=== PATIENT | male | born 1960 | race Caucasian/White ===

== ENCOUNTER 2019-05-30 16:07 | Inpatient (IN) | payer MEDICARE, SELFPAY ==
[2019-05-30] VITALS (15 sets, daily range): BP systolic 132–246; BP diastolic 81–138; PULSE 63–81; RESP 18–32; TEMP 36.4–36.6; O2SAT 84–98; BMI 40.6
--- NOTE | 2019-05-30 16:28 | ED_ITS ---
Entered by Elicia Tolliver, acting as scribe for Documented by User: Ermelinda Emerson MD 05/30/19 20:01 HPI - SOB/Dyspnea General: Chief Complaint: Shortness of Breath/Dyspnea Stated Complaint: sob leg pain/swelling/puss both Time Seen by Provider: 05/30/19 16:28 [facility], [facility] ED PFSH: Statuses (acute, chronic, etc) shown below reflect problem list status as previously entered and may not be historically accurate Medical History (Updated 05/30/19 @ 21:04 by Mario Park MD) COPD (chronic obstructive pulmonary disease) (Acute) Hyperlipidemia (Acute) Hypertension (Acute) Type 2 diabetes mellitus (Acute) Surgical History (Updated 05/30/19 @ 20:57 by Mario Park MD) History of ventriculoperitoneal shunting (Acute) Family History (Updated 05/30/19 @ 20:58 by Mario Park MD) Other CAD (coronary artery disease) CHF (congestive heart failure) Diabetes Social History (Updated 05/30/19 @ 20:58 by Mario Park MD) Smoking and tobacco status: current every day smoker Alcohol intake: never Substance/Drug Use: never Physical Exam 2 Const: COMMON NORMALS: no apparent distress, oriented x3 and healthy appearing HENMT: COMMON NORMALS: normocephalic and head/scalp atraumatic HEAD & SCALP: normocephalic and atraumatic Eye: COMMON NORMALS: PERRL and EOMs intact bilaterally PUPIL: Yes PERRL Neck/C-Spine: COMMON NORMALS: full ROM and supple Chest: COMMONS NORMALS: inspection of chest normal and palpation of chest normal Resp: EFFORT & INSPECTION: Yes tachypneic, Yes respiratory distress and Yes uses accessory muscles Cardio: COMMON NORMALS: regular rate, regular rhythm and no murmurs RATE: regular rate RHYTHM: regular rhythm GI: COMMON NORMALS: normal to inspection, nondistended, normoactive bowel sounds, soft to palpation, non-tender and no masses PALPATION: Yes soft Extremity: COMMON NORMALS: normal to inspection and full ROM Neuro: COMMON NORMALS: oriented x3, moves all extremities and no focal motor deficits Psych: COMMON NORMALS: mental status grossly normal, thought process normal and cooperative THOUGHT PROCESS: normal thought process Skin: COMMON NORMALS: no rashes or lesions noted and no wounds GENERAL SKIN EXAM: no rashes or lesions noted Course Vital Signs: Vital signs: Vital Signs Temperature 99.2 F 05/31/19 07:41 Pulse Rate 83 05/31/19 07:41 Respiratory Rate 20 H 05/31/19 07:41 Blood Pressure 186/102 05/31/19 08:30 Pulse Oximetry 90 05/31/19 07:41 MDM - SOB/Dyspnea MDM Narrative: Medical decision making narrative: Patient presents here with respiratory distress was placed on BiPAP due to elevated CO2. Patient is improving on BiPAP and does have pneumonia. Spoke to hospitalist and will admit. Patient has been stable while in the ER. Lab Data: Labs: Lab Results 05/30/19 05/30/19 05/30/19 Range/Units 16:50 16:50 16:50 WBC 7.4 (4.0-10.0) 10^3/ uL RBC 6.13 H (4.1-5.3) 10^6/u L Hgb 19.9 H (11.7-16.6) g/dL Hct 62.0 H (42.0-52.0) % MCV 101.1 H (80-94) fL MCH 32.5 (28.0-34.0) pg MCHC 32.1 (30.0-36.0) g/dL RDW 12.5 (12.1-15.1) % Plt Count 172 (130-400) 10^3/c mm MPV 9.6 (7.4-10.4) fL Neut % (Auto) 79.6 % Lymph % (Auto) 10.4 % Charlton % (Auto) 8.6 % Eos % (Auto) 0.5 % Baso % (Auto) 0.5 % Neut # (Auto) 5.9 (1.8-7.7) 10^3/u L Lymph # (Auto) 0.8 (0.8-4.8) 10^3/u L Charlton # (Auto) 0.6 (0.2-0.9) 10^3/u L Eos # (Auto) 0.0 (0.0-0.8) 10^3/u L Baso # (Auto) 0.0 (0.0-0.1) 10^3/u L Nucleated RBC % (a uto) 0 % Nucleated RBCs # 0.0 /100WBC ESR (0-10) mm/hr Specimen Type Sample Site ABG pH (7.35-7.45) ABG pCO2 (35-45) mmHg ABG pO2 (80.0-100.0) mmH g ABG HCO3 (22-26) mmol/L ABG O2 Saturation ABG Base Excess (-2.0-2.0) mmol/ L Melchor Test A-a O2 Gradient (5-10) mmHg Hematocrit (42-52) % Hgb O2 Saturation (95-100) % Carboxyhemoglobin (0.4-20.1) %THgb Methemoglobin (0.4-1.5) % Total Hemoglobin (14-18) g/dL Ionized Calcium (1.1-1.4) mmol/L O2 Delivery Device O2 Liters/Min % FiO2 % Political Science Faculty Member ID Sodium 132 L (136-145) mmol/L Potassium 4.2 (3.5-5.1) mmol/L Chloride 87 L (98-107) mmol/L Carbon Dioxide 32 H (22-29) mmol/L Anion Gap 17.2 (5-19) BUN 32 H (8-23) mg/dL Creatinine 1.3 H (0.7-1.2) mg/dL GFR Calculation 56.1 L (90-130) mL/min Glucose 154 H (65-115) mg/dL Estimat Average Gl ucose Hemoglobin A1c (4.0-6.0) % Calcium 9.2 (8.5-10.5) mg/dL Total Bilirubin 0.6 (0.15-1.2) mg/dL AST 36 (0-40) U/L ALT 31 (0-41) U/L Alkaline Phosphata se 69 (40-130) IU/L Troponin T Baselin e 48 H (0-15) ng/mL Troponin T 120 Min cantwell (0-15) ng/mL Delta Troponin T (0-10) ABS# C-Reactive Protein (0.0-4.9) mg/L NT-Pro-B Natriuret Pep (0-125) pg/mL Total Protein 7.4 (6.6-8.7) g/dL Albumin 3.5 (3.5-5.2) g/dL Globulin 3.9 (1.3-4.6) g/dL Procalcitonin (0-0.5) ng/mL TSH (0.27-4.20) uIU/ mL Influenza Type A A g (Negative) POC Influenza B Ag (Negative) 05/30/19 05/30/19 05/30/19 Range/Units 16:50 16:50 16:50 WBC (4.0-10.0) 10^3/ uL RBC (4.1-5.3) 10^6/u L Hgb (11.7-16.6) g/dL Hct (42.0-52.0) % MCV (80-94) fL MCH (28.0-34.0) pg MCHC (30.0-36.0) g/dL RDW (12.1-15.1) % Plt Count (130-400) 10^3/c mm MPV (7.4-10.4) fL Neut % (Auto) % Lymph % (Auto) % Charlton % (Auto) % Eos % (Auto) % Baso % (Auto) % Neut # (Auto) (1.8-7.7) 10^3/u L Lymph # (Auto) (0.8-4.8) 10^3/u L Charlton # (Auto) (0.2-0.9) 10^3/u L Eos # (Auto) (0.0-0.8) 10^3/u L Baso # (Auto) (0.0-0.1) 10^3/u L Nucleated RBC % (a uto) % Nucleated RBCs # /100WBC ESR 1 (0-10) mm/hr Specimen Type Sample Site ABG pH (7.35-7.45) ABG pCO2 (35-45) mmHg ABG pO2 (80.0-100.0) mmH g ABG HCO3 (22-26) mmol/L ABG O2 Saturation ABG Base Excess (-2.0-2.0) mmol/ L Melchor Test A-a O2 Gradient (5-10) mmHg Hematocrit (42-52) % Hgb O2 Saturation (95-100) % Carboxyhemoglobin (0.4-20.1) %THgb Methemoglobin (0.4-1.5) % Total Hemoglobin (14-18) g/dL Ionized Calcium (1.1-1.4) mmol/L O2 Delivery Device O2 Liters/Min % FiO2 % Political Science Faculty Member ID Sodium (136-145) mmol/L Potassium (3.5-5.1) mmol/L Chloride (98-107) mmol/L Carbon Dioxide (22-29) mmol/L Anion Gap (5-19) BUN (8-23) mg/dL Creatinine (0.7-1.2) mg/dL GFR Calculation (90-130) mL/min Glucose (65-115) mg/dL Estimat Average Gl ucose 214 Hemoglobin A1c 9.1 H (4.0-6.0) % Calcium (8.5-10.5) mg/dL Total Bilirubin (0.15-1.2) mg/dL AST (0-40) U/L ALT (0-41) U/L Alkaline Phosphata se (40-130) IU/L Troponin T Baselin e (0-15) ng/mL Troponin T 120 Min cantwell (0-15) ng/mL Delta Troponin T (0-10) ABS# C-Reactive Protein 10.9 H (0.0-4.9) mg/L NT-Pro-B Natriuret Pep (0-125) pg/mL Total Protein (6.6-8.7) g/dL Albumin (3.5-5.2) g/dL Globulin (1.3-4.6) g/dL Procalcitonin 0.15 (0-0.5) ng/mL TSH (0.27-4.20) uIU/ mL Influenza Type A A g (Negative) POC Influenza B Ag (Negative) 05/30/19 05/30/19 05/30/19 Range/Units 17:03 17:04 17:27 WBC (4.0-10.0) 10^3/ uL RBC (4.1-5.3) 10^6/u L Hgb (11.7-16.6) g/dL Hct (42.0-52.0) % MCV (80-94) fL MCH (28.0-34.0) pg MCHC (30.0-36.0) g/dL RDW (12.1-15.1) % Plt Count (130-400) 10^3/c mm MPV (7.4-10.4) fL Neut % (Auto) % Lymph % (Auto) % Charlton % (Auto) % Eos % (Auto) % Baso % (Auto) % Neut # (Auto) (1.8-7.7) 10^3/u L Lymph # (Auto) (0.8-4.8) 10^3/u L Charlton # (Auto) (0.2-0.9) 10^3/u L Eos # (Auto) (0.0-0.8) 10^3/u L Baso # (Auto) (0.0-0.1) 10^3/u L Nucleated RBC % (a uto) % Nucleated RBCs # /100WBC ESR (0-10) mm/hr Specimen Type Arterial Arterial Sample Site Radial, right Radial, left ABG pH 7.32 L 7.39 (7.35-7.45) ABG pCO2 66.2 H* 57.7 H (35-45) mmHg ABG pO2 147.0 H 93.6 (80.0-100.0) mmH g ABG HCO3 34.0 H 34.5 H (22-26) mmol/L ABG O2 Saturation 99.2 97.3 ABG Base Excess 4.5 H 6.7 H (-2.0-2.0) mmol/ L Melchor Test Pos Pos A-a O2 Gradient 113.6 H (5-10) mmHg Hematocrit 61.2 H 59.6 H (42-52) % Hgb O2 Saturation 97.9 96.0 (95-100) % Carboxyhemoglobin 1.2 1.3 (0.4-20.1) %THgb Methemoglobin 0.1 L 0.1 L (0.4-1.5) % Total Hemoglobin 20.0 H 19.4 H (14-18) g/dL Ionized Calcium 1.1 1.1 (1.1-1.4) mmol/L O2 Delivery Device Nrb Bipap O2 Liters/Min 15.0 % FiO2 40.0 % Political Science Faculty Member ID monro monro Sodium 133.0 134.0 (136-145) mmol/L Potassium 4.1 3.9 (3.5-5.1) mmol/L Chloride (98-107) mmol/L Carbon Dioxide (22-29) mmol/L Anion Gap (5-19) BUN (8-23) mg/dL Creatinine (0.7-1.2) mg/dL GFR Calculation (90-130) mL/min Glucose 150.0 H 144.0 H (65-115) mg/dL Estimat Average Gl ucose Hemoglobin A1c (4.0-6.0) % Calcium (8.5-10.5) mg/dL Total Bilirubin (0.15-1.2) mg/dL AST (0-40) U/L ALT (0-41) U/L Alkaline Phosphata se (40-130) IU/L Troponin T Baselin e (0-15) ng/mL Troponin T 120 Min cantwell (0-15) ng/mL Delta Troponin T (0-10) ABS# C-Reactive Protein (0.0-4.9) mg/L NT-Pro-B Natriuret Pep (0-125) pg/mL Total Protein (6.6-8.7) g/dL Albumin (3.5-5.2) g/dL Globulin (1.3-4.6) g/dL Procalcitonin (0-0.5) ng/mL TSH (0.27-4.20) uIU/ mL Influenza Type A A g Negative (Negative) POC Influenza B Ag Negative (Negative) 05/30/19 05/30/19 05/30/19 Range/Units 19:03 19:03 19:03 WBC (4.0-10.0) 10^3/ uL RBC (4.1-5.3) 10^6/u L Hgb (11.7-16.6) g/dL Hct (42.0-52.0) % MCV (80-94) fL MCH (28.0-34.0) pg MCHC (30.0-36.0) g/dL RDW (12.1-15.1) % Plt Count (130-400) 10^3/c mm MPV (7.4-10.4) fL Neut % (Auto) % Lymph % (Auto) % Charlton % (Auto) % Eos % (Auto) % Baso % (Auto) % Neut # (Auto) (1.8-7.7) 10^3/u L Lymph # (Auto) (0.8-4.8) 10^3/u L Charlton # (Auto) (0.2-0.9) 10^3/u L Eos # (Auto) (0.0-0.8) 10^3/u L Baso # (Auto) (0.0-0.1) 10^3/u L Nucleated RBC % (a uto) % Nucleated RBCs # /100WBC ESR (0-10) mm/hr Specimen Type Sample Site ABG pH (7.35-7.45) ABG pCO2 (35-45) mmHg ABG pO2 (80.0-100.0) mmH g ABG HCO3 (22-26) mmol/L ABG O2 Saturation ABG Base Excess (-2.0-2.0) mmol/ L Melchor Test A-a O2 Gradient (5-10) mmHg Hematocrit (42-52) % Hgb O2 Saturation (95-100) % Carboxyhemoglobin (0.4-20.1) %THgb Methemoglobin (0.4-1.5) % Total Hemoglobin (14-18) g/dL Ionized Calcium (1.1-1.4) mmol/L O2 Delivery Device O2 Liters/Min % FiO2 % Political Science Faculty Member ID Sodium (136-145) mmol/L Potassium (3.5-5.1) mmol/L Chloride (98-107) mmol/L Carbon Dioxide (22-29) mmol/L Anion Gap (5-19) BUN (8-23) mg/dL Creatinine (0.7-1.2) mg/dL GFR Calculation (90-130) mL/min Glucose (65-115) mg/dL Estimat Average Gl ucose Hemoglobin A1c (4.0-6.0) % Calcium (8.5-10.5) mg/dL Total Bilirubin (0.15-1.2) mg/dL AST (0-40) U/L ALT (0-41) U/L Alkaline Phosphata se (40-130) IU/L Troponin T Baselin e (0-15) ng/mL Troponin T 120 Min cantwell 34.81 H (0-15) ng/mL Delta Troponin T -13.19 L (0-10) ABS# C-Reactive Protein (0.0-4.9) mg/L NT-Pro-B Natriuret Pep 9969 H (0-125) pg/mL Total Protein (6.6-8.7) g/dL Albumin (3.5-5.2) g/dL Globulin (1.3-4.6) g/dL Procalcitonin (0-0.5) ng/mL TSH 2.31 (0.27-4.20) uIU/ mL Influenza Type A A g (Negative) POC Influenza B Ag (Negative) Discharge Plan Discharge Patient Disposition: Admitted As Inpatient Admit Provider: Mario Park Clinical Impression: Community acquired pneumonia Qualifiers: Laterality: unspecified laterality Qualified Code(s): J18.9 - Pneumonia, unsp ecified organism Condition: Stable Discharge Date/Time: 05/30/19 21:50 Coding Level of Care Code ED Unleavened [employer]er for Chg Fwd Exam Problem Focused Documented by User: Juan J Davila DO 05/31/19 09:53 HPI - SOB/Dyspnea General: Chief Complaint: Shortness of Breath/Dyspnea Stated Complaint: sob leg pain/swelling/puss both Time Seen by Provider: 05/30/19 16:28 Source: patient and RN notes reviewed Mode of arrival: wheelchair Limitations: no limitations History of Present Illness: HPI Narrative: 59 yo male presents to ED with complaints of shortness of breath. The patient states he quit smoking in 2008. He said his R leg blew up , it is swollen. The patient's face and abdomen flushed. He said it is harder to breath laying down. He said he has been sleeping in a recliner for a while. He said his legs have been hurting for a couple of years and he has been markedly short of breath for a month. MD elicited complaint: shortness of breath Onset (ago): month(s) (1) Context: recent illness Timing: constant Severity: severe Exacerbating factors: lying flat, exertion and movement Relieving factors: nothing Associated symptoms: Reports extremity pain; Deny abdominal pain, chest pain, dizziness, fever(s), nausea, palpitations, polydipsia, polyuria, syncope or vomiting Treatment prior to arrival: none Related Data: Home oxygen amount: none Review of Systems Const: Denies: fever, chills, body aches, fatigue or night sweats Eyes: Denies: change in vision or blurry vision ENMT: Denies: throat pain, oral sores/lesions, dental pain, nasal discharge or nasal congestion Card: Denies: chest pain, palpitations, irregular heart rhythm or syncope Resp: Denies: productive cough, non-productive cough or wheezing GI: Denies: abdominal pain, nausea, vomiting, vomiting blood, coffee grounds in vomit, difficulty swallowing, heartburn/indigestion, diarrhea, constipation, cramping, blood in stool or black tarry stool : Denies: flank pain, difficulty urinating, painful urination, urinary frequency, urinary urgency, urinary incontinence or blood in urine Musc: Reports: extremity pain Skin/Breast: Denies: rash or itching Neuro: Denies: headache, numbness in extremities, changes in sensation, lack of coordination, difficulty walking, frequent falls, dizziness, vertigo or confusion Psych: Denies: anxiety, depression, loss of interest, visual hallucinations, auditory hallucinations, suicidal ideation or homicidal ideation Endo: Denies: excessive urination, excessive thirst, tired all the time or cold intolerance Ermias/Lymph: Denies: easy bruising, easy bleeding, petechiae, enlarged lymph nodes or tender lymph nodes PFSH ED PFSH: Statuses (acute, chronic, etc) shown below reflect problem list status as previously entered and may not be historically accurate Medical History (Updated 05/30/19 @ 21:04 by Mario Park MD) COPD (chronic obstructive pulmonary disease) (Acute) Hyperlipidemia (Acute) Hypertension (Acute) Type 2 diabetes mellitus (Acute) Surgical History (Updated 05/30/19 @ 20:57 by Mario Park MD) History of ventriculoperitoneal shunting (Acute) Family History (Updated 05/30/19 @ 20:58 by Mario Park MD) Other CAD (coronary artery disease) CHF (congestive heart failure) Diabetes Social History (Updated 05/30/19 @ 20:58 by Mario Park MD) Smoking and tobacco status: current every day smoker Alcohol intake: never Substance/Drug Use: never Physical Exam Const: GENERAL APPEARANCE: cooperative and comfortable ORIENTATION/CONSCIOUSNESS: Yes awake, Yes oriented to person, Yes oriented to place and Yes oriented to time HENMT: COMMON NORMALS: normocephalic, head/scalp atraumatic, hearing grossly normal bilaterally, external ears normal, EAC's normal, TM's normal bilaterally, nasal mucous membranes and turbinates normal, moist oral mucous membranes and oropharynx normal HEAD & SCALP: normocephalic and atraumatic NOSE: nasal mucous membranes and turbinates normal EXTERNAL EAR: Yes external ears normal EXTERNAL AUDITORY CANAL: EAC's normal TYMPANIC MEMBRANE: TM's normal bilaterally Eye: COMMON NORMALS: PERRL, EOMs intact bilaterally, conjunctivae normal and no scleral icterus CONJUNCTIVA: Yes conjunctivae normal PUPIL: Yes PERRL Neck/C-Spine: COMMON NORMALS: no lymphadenopathy, supple and no JVD Lymph: LYMPHATIC: no lymphadenopathy noted and no lymphedema noted Resp: AUSCULTATION: rhonchi left lower, wheezes throughout and diminished lung sounds Cardio: COMMON NORMALS: no JVD, regular rate, regular rhythm and no murmurs RATE: regular rate RHYTHM: regular rhythm GI: COMMON NORMALS: soft to palpation and no hepatosplenomegaly AUSCULTATION: Yes normoactive bowel sounds PALPATION: Yes soft, No tender, No guarding and Yes no hepatosplenomegaly Extremity: COMMON NORMALS: normal to inspection, normal capillary refill, no clubbing, cyanosis or edema, no calf tenderness and no pedal edema Neuro: SENSORIUM/ORIENTATION: Yes oriented to person, Yes oriented to place and Yes oriented to time Skin: COMMON NORMALS: no rashes or lesions noted GENERAL SKIN EXAM: no rashes or lesions noted Course ED course: Patient turned over to Dr. Emerson at change of shift Vital Signs: Vital signs: Vital Signs Temperature 99.2 F 05/31/19 07:41 Pulse Rate 83 05/31/19 07:41 Respiratory Rate 20 H 05/31/19 07:41 Blood Pressure 186/102 05/31/19 08:30 Pulse Oximetry 90 05/31/19 07:41 MDM - SOB/Dyspnea Lab Data: Labs: Lab Results 05/30/19 05/30/19 05/30/19 Range/Units 16:50 16:50 16:50 WBC 7.4 (4.0-10.0) 10^3/ uL RBC 6.13 H (4.1-5.3) 10^6/u L Hgb 19.9 H (11.7-16.6) g/dL Hct 62.0 H (42.0-52.0) % MCV 101.1 H (80-94) fL MCH 32.5 (28.0-34.0) pg MCHC 32.1 (30.0-36.0) g/dL RDW 12.5 (12.1-15.1) % Plt Count 172 (130-400) 10^3/c mm MPV 9.6 (7.4-10.4) fL Neut % (Auto) 79.6 % Lymph % (Auto) 10.4 % Charlton % (Auto) 8.6 % Eos % (Auto) 0.5 % Baso % (Auto) 0.5 % Neut # (Auto) 5.9 (1.8-7.7) 10^3/u L Lymph # (Auto) 0.8 (0.8-4.8) 10^3/u L Charlton # (Auto) 0.6 (0.2-0.9) 10^3/u L Eos # (Auto) 0.0 (0.0-0.8) 10^3/u L Baso # (Auto) 0.0 (0.0-0.1) 10^3/u L Nucleated RBC % (a uto) 0 % Nucleated RBCs # 0.0 /100WBC ESR (0-10) mm/hr Specimen Type Sample Site ABG pH (7.35-7.45) ABG pCO2 (35-45) mmHg ABG pO2 (80.0-100.0) mmH g ABG HCO3 (22-26) mmol/L ABG O2 Saturation ABG Base Excess (-2.0-2.0) mmol/ L Melchor Test A-a O2 Gradient (5-10) mmHg Hematocrit (42-52) % Hgb O2 Saturation (95-100) % Carboxyhemoglobin (0.4-20.1) %THgb Methemoglobin (0.4-1.5) % Total Hemoglobin (14-18) g/dL Ionized Calcium (1.1-1.4) mmol/L O2 Delivery Device O2 Liters/Min % FiO2 % Political Science Faculty Member ID Sodium 132 L (136-145) mmol/L Potassium 4.2 (3.5-5.1) mmol/L Chloride 87 L (98-107) mmol/L Carbon Dioxide 32 H (22-29) mmol/L Anion Gap 17.2 (5-19) BUN 32 H (8-23) mg/dL Creatinine 1.3 H (0.7-1.2) mg/dL GFR Calculation 56.1 L (90-130) mL/min Glucose 154 H (65-115) mg/dL Estimat Average Gl ucose Hemoglobin A1c (4.0-6.0) % Calcium 9.2 (8.5-10.5) mg/dL Total Bilirubin 0.6 (0.15-1.2) mg/dL AST 36 (0-40) U/L ALT 31 (0-41) U/L Alkaline Phosphata se 69 (40-130) IU/L Troponin T Baselin e 48 H (0-15) ng/mL Troponin T 120 Min cantwell (0-15) ng/mL Delta Troponin T (0-10) ABS# C-Reactive Protein (0.0-4.9) mg/L NT-Pro-B Natriuret Pep (0-125) pg/mL Total Protein 7.4 (6.6-8.7) g/dL Albumin 3.5 (3.5-5.2) g/dL Globulin 3.9 (1.3-4.6) g/dL Procalcitonin (0-0.5) ng/mL TSH (0.27-4.20) uIU/ mL Influenza Type A A g (Negative) POC Influenza B Ag (Negative) 05/30/19 05/30/19 05/30/19 Range/Units 16:50 16:50 16:50 WBC (4.0-10.0) 10^3/ uL RBC (4.1-5.3) 10^6/u L Hgb (11.7-16.6) g/dL Hct (42.0-52.0) % MCV (80-94) fL MCH (28.0-34.0) pg MCHC (30.0-36.0) g/dL RDW (12.1-15.1) % Plt Count (130-400) 10^3/c mm MPV (7.4-10.4) fL Neut % (Auto) % Lymph % (Auto) % Charlton % (Auto) % Eos % (Auto) % Baso % (Auto) % Neut # (Auto) (1.8-7.7) 10^3/u L Lymph # (Auto) (0.8-4.8) 10^3/u L Charlton # (Auto) (0.2-0.9) 10^3/u L Eos # (Auto) (0.0-0.8) 10^3/u L Baso # (Auto) (0.0-0.1) 10^3/u L Nucleated RBC % (a uto) % Nucleated RBCs # /100WBC ESR 1 (0-10) mm/hr Specimen Type Sample Site ABG pH (7.35-7.45) ABG pCO2 (35-45) mmHg ABG pO2 (80.0-100.0) mmH g ABG HCO3 (22-26) mmol/L ABG O2 Saturation ABG Base Excess (-2.0-2.0) mmol/ L Melchor Test A-a O2 Gradient (5-10) mmHg Hematocrit (42-52) % Hgb O2 Saturation (95-100) % Carboxyhemoglobin (0.4-20.1) %THgb Methemoglobin (0.4-1.5) % Total Hemoglobin (14-18) g/dL Ionized Calcium (1.1-1.4) mmol/L O2 Delivery Device O2 Liters/Min % FiO2 % Political Science Faculty Member ID Sodium (136-145) mmol/L Potassium (3.5-5.1) mmol/L Chloride (98-107) mmol/L Carbon Dioxide (22-29) mmol/L Anion Gap (5-19) BUN (8-23) mg/dL Creatinine (0.7-1.2) mg/dL GFR Calculation (90-130) mL/min Glucose (65-115) mg/dL Estimat Average Gl ucose 214 Hemoglobin A1c 9.1 H (4.0-6.0) % Calcium (8.5-10.5) mg/dL Total Bilirubin (0.15-1.2) mg/dL AST (0-40) U/L ALT (0-41) U/L Alkaline Phosphata se (40-130) IU/L Troponin T Baselin e (0-15) ng/mL Troponin T 120 Min cantwell (0-15) ng/mL Delta Troponin T (0-10) ABS# C-Reactive Protein 10.9 H (0.0-4.9) mg/L NT-Pro-B Natriuret Pep (0-125) pg/mL Total Protein (6.6-8.7) g/dL Albumin (3.5-5.2) g/dL Globulin (1.3-4.6) g/dL Procalcitonin 0.15 (0-0.5) ng/mL TSH (0.27-4.20) uIU/ mL Influenza Type A A g (Negative) POC Influenza B Ag (Negative) 05/30/19 05/30/19 05/30/19 Range/Units 17:03 17:04 17:27 WBC (4.0-10.0) 10^3/ uL RBC (4.1-5.3) 10^6/u L Hgb (11.7-16.6) g/dL Hct (42.0-52.0) % MCV (80-94) fL MCH (28.0-34.0) pg MCHC (30.0-36.0) g/dL RDW (12.1-15.1) % Plt Count (130-400) 10^3/c mm MPV (7.4-10.4) fL Neut % (Auto) % Lymph % (Auto) % Charlton % (Auto) % Eos % (Auto) % Baso % (Auto) % Neut # (Auto) (1.8-7.7) 10^3/u L Lymph # (Auto) (0.8-4.8) 10^3/u L Charlton # (Auto) (0.2-0.9) 10^3/u L Eos # (Auto) (0.0-0.8) 10^3/u L Baso # (Auto) (0.0-0.1) 10^3/u L Nucleated RBC % (a uto) % Nucleated RBCs # /100WBC ESR (0-10) mm/hr Specimen Type Arterial Arterial Sample Site Radial, right Radial, left ABG pH 7.32 L 7.39 (7.35-7.45) ABG pCO2 66.2 H* 57.7 H (35-45) mmHg ABG pO2 147.0 H 93.6 (80.0-100.0) mmH g ABG HCO3 34.0 H 34.5 H (22-26) mmol/L ABG O2 Saturation 99.2 97.3 ABG Base Excess 4.5 H 6.7 H (-2.0-2.0) mmol/ L Melchor Test Pos Pos A-a O2 Gradient 113.6 H (5-10) mmHg Hematocrit 61.2 H 59.6 H (42-52) % Hgb O2 Saturation 97.9 96.0 (95-100) % Carboxyhemoglobin 1.2 1.3 (0.4-20.1) %THgb Methemoglobin 0.1 L 0.1 L (0.4-1.5) % Total Hemoglobin 20.0 H 19.4 H (14-18) g/dL Ionized Calcium 1.1 1.1 (1.1-1.4) mmol/L O2 Delivery Device Nrb Bipap O2 Liters/Min 15.0 % FiO2 40.0 % Political Science Faculty Member ID monro monro Sodium 133.0 134.0 (136-145) mmol/L Potassium 4.1 3.9 (3.5-5.1) mmol/L Chloride (98-107) mmol/L Carbon Dioxide (22-29) mmol/L Anion Gap (5-19) BUN (8-23) mg/dL Creatinine (0.7-1.2) mg/dL GFR Calculation (90-130) mL/min Glucose 150.0 H 144.0 H (65-115) mg/dL Estimat Average Gl ucose Hemoglobin A1c (4.0-6.0) % Calcium (8.5-10.5) mg/dL Total Bilirubin (0.15-1.2) mg/dL AST (0-40) U/L ALT (0-41) U/L Alkaline Phosphata se (40-130) IU/L Troponin T Baselin e (0-15) ng/mL Troponin T 120 Min [place] (0-15) ng/mL Delta Troponin T (0-10) ABS# C-Reactive Protein (0.0-4.9) mg/L NT-Pro-B Natriuret Pep (0-125) pg/mL Total Protein (6.6-8.7) g/dL Albumin (3.5-5.2) g/dL Globulin (1.3-4.6) g/dL Procalcitonin (0-0.5) ng/mL TSH (0.27-4.20) uIU/ mL Influenza Type A A g Negative (Negative) POC Influenza B Ag Negative (Negative) 05/30/19 05/30/19 05/30/19 Range/Units 19:03 19:03 19:03 WBC (4.0-10.0) 10^3/ uL RBC (4.1-5.3) 10^6/u L Hgb (11.7-16.6) g/dL Hct (42.0-52.0) % MCV (80-94) fL MCH (28.0-34.0) pg MCHC (30.0-36.0) g/dL RDW (12.1-15.1) % Plt Count (130-400) 10^3/c mm MPV (7.4-10.4) fL Neut % (Auto) % Lymph % (Auto) % Charlton % (Auto) % Eos % (Auto) % Baso % (Auto) % Neut # (Auto) (1.8-7.7) 10^3/u L Lymph # (Auto) (0.8-4.8) 10^3/u L Charlton # (Auto) (0.2-0.9) 10^3/u L Eos # (Auto) (0.0-0.8) 10^3/u L Baso # (Auto) (0.0-0.1) 10^3/u L Nucleated RBC % (a uto) % Nucleated RBCs # /100WBC ESR (0-10) mm/hr Specimen Type Sample Site ABG pH (7.35-7.45) ABG pCO2 (35-45) mmHg ABG pO2 (80.0-100.0) mmH g ABG HCO3 (22-26) mmol/L ABG O2 Saturation ABG Base Excess (-2.0-2.0) mmol/ L Melchor Test A-a O2 Gradient (5-10) mmHg Hematocrit (42-52) % Hgb O2 Saturation (95-100) % Carboxyhemoglobin (0.4-20.1) %THgb Methemoglobin (0.4-1.5) % Total Hemoglobin (14-18) g/dL Ionized Calcium (1.1-1.4) mmol/L O2 Delivery Device O2 Liters/Min % FiO2 % Political Science Faculty Member ID Sodium (136-145) mmol/L Potassium (3.5-5.1) mmol/L Chloride (98-107) mmol/L Carbon Dioxide (22-29) mmol/L Anion Gap (5-19) BUN (8-23) mg/dL Creatinine (0.7-1.2) mg/dL GFR Calculation (90-130) mL/min Glucose (65-115) mg/dL Estimat Average Gl ucose Hemoglobin A1c (4.0-6.0) % Calcium (8.5-10.5) mg/dL Total Bilirubin (0.15-1.2) mg/dL AST (0-40) U/L ALT (0-41) U/L Alkaline Phosphata se (40-130) IU/L Troponin T Baselin e (0-15) ng/mL Troponin T 120 Min [place] 34.81 H (0-15) ng/mL Delta Troponin T -13.19 L (0-10) ABS# C-Reactive Protein (0.0-4.9) mg/L NT-Pro-B Natriuret Pep 9969 H (0-125) pg/mL Total Protein (6.6-8.7) g/dL Albumin (3.5-5.2) g/dL Globulin (1.3-4.6) g/dL Procalcitonin (0-0.5) ng/mL TSH 2.31 (0.27-4.20) uIU/ mL Influenza Type A A g (Negative) POC Influenza B Ag (Negative) Discharge Plan Discharge Patient Disposition: Admitted As Inpatient Admit Provider: Mario Park Clinical Impression: Community acquired pneumonia Qualifiers: Laterality: unspecified laterality Qualified Code(s): J18.9 - Pneumonia, unspecified organism Condition: Stable Discharge Date/Time: 05/30/19 21:50 Coding Level of Care Code ED Unleavened Dough Mixer for [facility] Fwd Exam Problem Focused The documentation recorded by the dannyibeSharee Valerie R, accurately reflects the service I personally performed and the decisions made by , Juan J Davila, May 30, 2019 16:07
--- NOTE | 2019-05-30 16:54 | XR_ITS ---
WS: [id number] Portable AP upright chest, 05/30/2019 Clinical Data: dyspnea Comparison: None. Findings: No nodules or masses are seen. The heart is slightly enlarged. The pulmonary vascularity is not increased. There is a patchy opacity in the right lower lobe and possibly a small right effusion . Monitor leads on the chest wall. Aortic arch and descending aorta are minimally tortuous. XR/XR chest 1V portable [id number] Impression: 1. Patchy opacity in right lower lobe with small right effusion which could rep resent atelectasis or early pneumonia. 2. Atherosclerosis and mild cardiomegaly.
--- NOTE | 2019-05-30 16:55 | ECG_ITS ---
Measurements Intervals [place] Rate: 81 P: 73 MA: 226 QRS: 234 QRSD: 116 T: 31 QT: 411 QTc: 479 SINUS RHYTHM WITH FIRST DEGREE AV BLOCK WITH OCCASIONAL ECTOPIC PREMATURE COMPLEXE COMPLEXES POSSIBLE LEFT ATRIAL ENLARGEMENT [-0.1mV P WAVE IN V1/V2] INDETERMINATE AXIS LOW QRS VOLTAGE IN PRECORDIAL LEADS [QRS DEFLECTION < 1.0 mV IN CHEST LEADS] PATTERN CONSISTENT WITH PULMONARY DISEASE RIGHT BUNDLE BRANCH BLOCK [120+ ms QRS DURATION, UPRIGHT V1, 40+ ms S IN I/a I/aVL/V4/V5/V6] SEPTAL MYOCARDIAL INFARCTION , OF INDETERMINATE AGE [40+ ms Q WAVE IN V1/V2] No previous ECG available for comparison Electronically Signed On 05-31-2019 22:14:32 LAST REPAIRER by Prisca Martinez M.D. [id number]
[2019-05-30 17:06] LABS: Basophils % 0.5 %; Eosinophils % 0.5 %; Hemoglobin 19.9 g/dL (11.7-16.6); Lymphocytes # 0.8 10^3/uL (0.8-4.8); Lymphocytes % 10.4 %; Mean Corpuscular HGB Conc 32.1 g/dL (30.0-36.0); Mean Corpuscular Hemoglobin 32.5 pg (28.0-34.0); Mean Corpuscular Volume 101.1 fL (80-94); Mean Platelet Volume 9.6 fL (7.4-10.4); Monocytes # 0.6 10^3/uL (0.2-0.9); Monocytes % 8.6 %; Neutrophils # 5.9 10^3/uL (1.8-7.7); Neutrophils % 79.6 %; Nucleated Red Blood Cells % 0 %; Platelet Count 172 10^3/cmm (130-400); Red Blood Count 6.13 10^6/uL (4.1-5.3); Red Cell Distribution Width 12.5 % (12.1-15.1); White Blood Count 7.4 10^3/uL (4.0-10.0)
[2019-05-30] MEDS: ipratropium-albuterol 3 mL Neb INHALATION ×2 (17:11→22:27)
[2019-05-30 17:20] LABS: Alanine Aminotransferase 31 U/L (0-41); Albumin Level 3.5 g/dL (3.5-5.2); Alkaline Phosphatase 69 IU/L (40-130); Anion Gap 17.2 (5-19); Aspartate Amino Transferase 36 U/L (0-40); Blood Urea Nitrogen 32 mg/dL (8-23); Calcium 9.2 mg/dL (8.5-10.5); Carbon Dioxide 32 mmol/L (22-29); Chloride 87 mmol/L (98-107); Globulin 3.9 g/dL (1.3-4.6); Glomerular Filtration Rate 56.1 mL/min (90-130); Glucose 154 mg/dL (65-115); Potassium 4.2 mmol/L (3.5-5.1); Sodium 132 mmol/L (136-145); Total Bilirubin 0.6 mg/dL (0.15-1.2); Total Protein 7.4 g/dL (6.6-8.7)
[2019-05-30 17:25] LABS: Troponin(5th) Baseline 48 ng/mL (0-15)
[2019-05-30 17:27] LABS: ABG PCO2 66.2 mmHg (35-45); ABG PH Result 7.32 (7.35-7.45); Arterial Blood Gas Hematocrit 61.2 % (42-52); Base Excess ABG 4.5 mmol/L (-2.0-2.0); Blood Gas Allen Test Pos; Blood Gas Sample Site Radial, right; Blood Gas Sample Type Arterial; Carboxyhemoglobin 1.2 %THgb (0.4-20.1); HGB O2 Sat 97.9 % (95-100); Ionized Calcium Level - ABG 1.1 mmol/L (1.1-1.4); Methemoglobin 0.1 % (0.4-1.5); Oxygen Device NRB; Oxygen Saturation ABG 99.2; Potassium Level - ABG 4.1 mmol/L (3.5-5.0)
[2019-05-30 17:40] LABS: ABG PCO2 57.7 mmHg (35-45); ABG PH Result 7.39 (7.35-7.45); Alveolar-Arterial Oxygen Gradi 113.6 mmHg (5-10); Arterial Blood Gas Hematocrit 59.6 % (42-52); Base Excess ABG 6.7 mmol/L (-2.0-2.0); Blood Gas Allen Test Pos; Blood Gas Sample Site Radial, left; Blood Gas Sample Type Arterial; Carboxyhemoglobin 1.3 %THgb (0.4-20.1); HCO3 ABG 34.5 mmol/L (22-26); Ionized Calcium Level - ABG 1.1 mmol/L (1.1-1.4); Methemoglobin 0.1 % (0.4-1.5); Oxygen Device BIPAP; Oxygen Saturation ABG 97.3; PO2 ABG 93.6 mmHg (80.0-100.0); Potassium Level - ABG 3.9 mmol/L (3.5-5.0); Total Hemoglobin 19.4 g/dL (14-18)
[2019-05-30 17:51] LABS: Influenza A by IFA Negative (Negative); Influenza B by IFA Negative (Negative)
[2019-05-30] MEDS: cefTRIAXone 1,000 MG in sodium chloride 0.9% (plus) 50 ML 100 MG IV (17:51)
[2019-05-30] MEDS: azithromycin 500 MG in sodium chloride 0.9% 250 ML 250 MG IV (18:11)
--- NOTE | 2019-05-30 18:55 | ECG_ITS ---
Measurements Intervals [place] Rate: 79 P: 64 RI: 200 QRS: -73 QRSD: 114 T: 48 QT: 369 QTc: 425 SINUS RHYTHM POSSIBLE LEFT ATRIAL ENLARGEMENT [-0.1mV P WAVE IN V1/V2] MARKED LEFT AXIS DEVIATION [QRS AXIS < -30] PATTERN CONSISTENT WITH PULMONARY DISEASE RIGHT BUNDLE BRANCH BLOCK [120+ ms QRS DURATION, UPRIGHT V1, 40+ ms S IN I/aVL/V4/V5/V6] SEPTAL MYOCARDIAL INFARCTION [40+ ms Q WAVE IN V1/V2], OF INDETERMINATE AGE No previous ECG available for comparison Electronically Signed On 05-31-2019 22:18:15 REPRODUCTIVE SURGEON by Prisca Martinez M.D. [id number]
[2019-05-30 19:31] LABS: Troponin 5 2HR 34.81 ng/mL (0-15)
[2019-05-30 20:27] LABS: Add Urine Microscopic? YES; Bilirubin Urine Neg (NEGATIVE); Blood Urine 3+ (Negative); Glucose Urine UA Norm (Normal); Ketones Urine Negative (Negative); Leukocyte Esterase Urine Negative (Negative); Nitrate Urine Negative (Negative); Protein Urine 3+ (Negative); Specific Gravity, Urine 1.015 (1.005-1.030); Urine Appearance Clear (CLEAR); Urine Color Yellow (Yellow); Urobilinogen Urine Norm (Negative); pH Urine 5 (5-7)
[2019-05-30 20:36] LABS: Add Urine Culture? No; Bacteria Urine TRACE; RBC Urine 0-4 /hpf (0-2); Squamous Epithelial Cell Urine 0-4 (0-5)
--- NOTE | 2019-05-30 20:40 | XR_ITS ---
WS: [id number] Right leg including the tibia and fibula, 05/30/2019 Clinical Data: cellulitis right leg r/ cellulitis Comparison: None. Findings: No fractures or dislocations are seen. The tibia and fibula are intact. The soft tissues are normal. There are small phleboliths in the subcutaneous soft tissue. No soft tissue masses are seen. No osteo myelitis is present XR/XR tibia fibula RT 2V [id number] Impression: Negative right leg.
--- NOTE | 2019-05-30 20:40 | XR_ITS ---
WS: [id number] Left leg including the tibia and fibula, 3 views, 05/30/2019 Clinical Data: cellulitis left leg r/o osteo Comparison: None. Findings: No fractures or dislocations are seen. The tibia and fibula are intact. The soft tissues are normal. No evidence of osteomyelitis is seen. There are small calcifications in the subcutaneous soft tissue which probably represent phleboliths. XR/XR tibia fibula LT 2V [id number] Impression: Negative for osteomyelitis or soft tissue mass of the left leg.
--- NOTE | 2019-05-30 20:44 | CTR_ITS ---
PROCEDURE INFORMATION: Exam: CT Angiography Chest With Contrast Exam date and time: 05/30/2019 9:01 PM Age: 59 years old Clinical indication: Dyspnea and shortness of breath; Additional info: SOB, bilatreal leg swelling TECHNIQUE: Imaging protocol: Computed tomographic angiography of the chest with intravenous contrast. 3D rendering: MIP and/or 3D reconstructed images were created by the technologist. Total DLP: 632.52 mGy-cm Radiation optimization: All CT scans at this facility use at least one of these dose optimization techniques: automated exposure control; mA and/or kV adjustment per patient size (includes targeted exams where dose is matched to clinical indication); or iterative reconstruction. Contrast material: VISI 320; Contrast volume: 95 ml; Contrast route: IV; COMPARISON: CR XR chest 1V portable [id number] 05/30/2019 5:13 PM FINDINGS: Tubes, catheters and devices: HAIRPIECE STYLIST shunt tubing is seen within the soft tissues of the chest anteriorly on the right. Pulmonary arteries: Normal. No pulmonary emboli. Aorta: Unremarkable. No aortic aneurysm. No aortic dissection. Lungs: Patchy opacities and consolidation is seen superimposed over the pleural effusions likely representing atelectasis. Superimposed pneumonia cannot be entirely excluded. Pleural space: There are small bilateral pleural effusions, right slightly larger than left. Heart: Unremarkable. No cardiomegaly. No pericardial effusion. Adrenals: There is a small 10 x 14 mm nodularity seen within the left adrenal gland likely representing a small adenoma. Kidneys and ureters: A 4.4 cm hypoattenuation cystic lesions seen on the upper pole of the left kidney compatible with a simple cyst. Intraperitoneal space: A trace amount of fluid is seen adjacent to the liver. Lymph nodes: Small retroperitoneal lymph nodes are seen that are below CT criteria for lymphadenopathy. Bones/joints: There is evidence of healed rib fractures bilaterally. Soft tissues: Unremarkable. CT/CT angio chest PE protcl [id number] IMPRESSION: 1. There is no evidence for pulmonary emboli. 2. Bilateral pleural effusions, right larger than left. 3. Probable bilateral superimposing atelectasis although infiltrates and pneumonia cannot be entirely excluded. 4. A trace amount of fluid is seen adjacent to the liver. 5. Simple appearing 4.4 cm cyst on the upper pole of the left kidney posteriorly. No further workup needed. 6. Small left adrenal nodularity measuring up to 1.4 cm most probably represents a benign adenoma. Consider 12 month follow-up adrenal CT. (Bailey Wills, ACR White Paper, 2017) Radiation Dose CTDIVOL = (mGy): DLP = 632.52 (mGy-cm)
--- NOTE | 2019-05-30 20:50 | PM.HP ---
Providers/Chief Complaint Admitting Physician: Mario Park MD Chief Complaint: sob leg pain/swelling/puss both History of Present Illness Corey Rushing is a 59 year old male with a past medical history of type 2 diabetes mellitus, hyperlipidemia, hypertension, history of a brain tumor with a ventriculoperitoneal shunt, COPD, anxiety who presents to the emergency room for complaints of cough, shortness of breath, bilateral lower extremity swelling. Patient states that 3 weeks ago he had a cough, fevers, malaise, fatigue, shortness of breath, saw his primary care physician's office, was diagnosed with a pneumonia, was given a Z-Ray, stated that he got a bit better, but his symptoms returned, and was given another antibiotic course that she cannot remember. Patient states that he has not gotten any better since then, still has a productive cough, yellow-green sputum, intermittent fevers, fatigue, malaise shortness of breath at rest and with exertion, no chest pain, no palpitations, no lightheadedness, no dizziness, no poor appetite, no diarrhea, no chills. Patient also states that he has had bilateral lower extremity swelling, erythema, tenderness, drainage for quite some time, he has not really addressed this with his primary care physician. Of note patient does not know which medications he is taking, he is only sure on metformin, metoprolol, lisinopril, will have to call his pharmacy in [facility] to get his medication list. Review of Systems Const: Reports: fever, fatigue and malaise; Denies: chills Eyes: Denies: change in vision or blurry vision ENMT: Denies: nasal congestion Resp: Reports: shortness of breath and productive cough GI: Denies: abdominal pain, nausea, vomiting, vomiting blood, diarrhea, constipation, blood in stool or black tarry stool : Denies: flank pain, difficulty urinating, painful urination or urinary frequency Musc: Denies: neck pain or back pain Skin/Breast: Denies: rash Neuro: Denies: headache, dizziness or vertigo Psych: Denies: anxiety or depression Endo: Denies: excessive urination or excessive thirst Medications/Allergies Allergies Allergy/AdvReac Type Severity Reaction Status Date / Time No Known Allergies Allergy Verified 05/30/19 16:31 Additional Medication Information Additional Medication Information: Metformin Lisinopril Metoprolol Patient is unsure about dosing, strength, and the other medications he takes PFSH Acute PFSH: Statuses (acute, chronic, etc) shown below reflect problem list status as previously entered and may not be historically accurate Medical History (Updated 05/30/19 @ 21:04 by Mario Park MD) COPD (chronic obstructive pulmonary disease) (Acute) Hyperlipidemia (Acute) Hypertension (Acute) Type 2 diabetes mellitus (Acute) Surgical History (Updated 05/30/19 @ 20:57 by Mario Park MD) History of ventriculoperitoneal shunting (Acute) Family History (Updated 05/30/19 @ 20:58 by Mario Park MD) Other CAD (coronary artery disease) CHF (congestive heart failure) Diabetes Social History (Updated 05/30/19 @ 20:58 by Mario Park MD) Smoking and tobacco status: current every day smoker Alcohol intake: never Substance/Drug Use: never Vitals/I&O/Wt Last Vital Signs Temp 97.8 F 05/30/19 16:19 Pulse 65 05/30/19 20:05 Resp 32 H 05/30/19 17:11 BP 132/81 05/30/19 16:19 Pulse Ox 97 05/30/19 20:05 Weight last 48 hrs Weight 124.738 kg Physical Exam Const: COMMON NORMALS: no apparent distress and oriented x3 GENERAL APPEARANCE: cooperative and comfortable HENMT: COMMON NORMALS: normocephalic HEAD & SCALP: normocephalic Eye: COMMON NORMALS: PERRL, EOMs intact bilaterally and no papilledema GENERAL EYE: normal appearance of both eyes PUPIL: Yes PERRL DIRECT OPHTHALMOSCOPY: Yes no papilledema Neck/C-Spine: COMMON NORMALS: full ROM, no lymphadenopathy, no JVD and thyroid normal THYROID: thyroid normal Lymph: LYMPHATIC: no lymphadenopathy noted Chest: OTHER: Eczematous rash on chest, face, back Resp: COMMON NORMALS: normal respiratory effort, no retractions, no use of accessory muscles and clear to auscultation bilaterally AUSCULTATION: clear to auscultation bilaterally and breath sounds absent on the right Cardio: COMMON NORMALS: no JVD, regular rate, regular rhythm, S1 normal heart sound, S2 normal heart sound, no gallops, no clicks and no murmurs RATE: regular rate RHYTHM: regular rhythm HEART SOUNDS: S1 normal and S2 normal GI: COMMON NORMALS: normal to inspection, nondistended, normoactive bowel sounds, soft to palpation, non-tender and no hepatosplenomegaly INSPECTION: Yes abdominal wall edema PALPATION: Yes soft and Yes no hepatosplenomegaly Extremity: COMMON NORMALS: normal to inspection and full ROM NARRATIVE EXTREMITY EXAM: Diminished DP PT pulses bilaterally Right lower extremity feels cool OTHER: Bilateral left lower extremities Erythema, swelling, tenderness extending from elliott downwards to the ankles With superficial diabetic ulcers bilaterally, multiple, largest measuring 2 x 2 cm, with serosanguineous drainage 1+ pitting edema Neuro: COMMON NORMALS: oriented x3, CN's II-XII intact bilaterally, moves all extremities and no focal motor deficits Psych: COMMON NORMALS: mental status grossly normal, thought process normal and cooperative THOUGHT PROCESS: normal thought process Data : 05/30/19 16:50 05/30/19 16:50 A&P Assessment and plan (1) Acute respiratory failure with hypoxia: Acute respiratory failure secondary to right lower lobe pneumonia and COPD exacerbation -Has failed multiple rounds of outpatient antibiotics Plan: -Patient is okay to admit to general medical floors -Blood cultures, urine bacterial antigen -Broad-spectrum antibiotics vancomycin and Zosyn -Nebulizer treatments, -Solu-Medrol -Currently on 3 L nasal cannula, saturating high 90s -BiPAP PRN -CT angiogram of the chest was ordered given sudden onset of shortness of breath, bilateral lower extremity swelling, history of blood clot in the left lower extremity in the past Status: Acute Code(s): J96.01 - Acute respiratory failure with hypoxia (2) Community acquired pneumonia: Status: Acute Qualifiers: Laterality: unspecified laterality Qualified Code(s): J18.9 - Pneumonia, unspecified organism Code(s): J18.9 - Pneumonia, unspecified organism (3) COPD (chronic obstructive pulmonary disease): More than 97-shwk-eddg history of smoking, history of COPD, does not use inhalers at home Patient's PCO2 is 57.7, hemoglobin is 19.9, clinically indicating that he has severe COPD, he might qualify for oxygen at home We will await for CT angios Status: Acute Code(s): J44.9 - Chronic obstructive pulmonary disease, unspecified (4) Type 2 diabetes mellitus: Only uses metformin and he thinks glipizide Given the appearance of his bilateral lower extremities, has findings concerning of poorly controlled diabetes Need to get medication list from [facility] Plan: -Mild dose sliding scale -Hemoglobin A1c Status: Acute Code(s): E11.9 - Type 2 diabetes mellitus without complications (5) Hyperlipidemia: Statin Status: Acute Code(s): E78.5 - Hyperlipidemia, unspecified (6) Hypertension: Patient is unsure of the dosing of the medications Start metoprolol 25 twice daily, lisinopril 10 mg Await medication list from [facility] Status: Acute Code(s): I10 - Essential (primary) hypertension (7) Bilateral lower leg cellulitis: -Evidence of bilateral lower extremity cellulitis, with erythema, swelling, tenderness, -Multiple shallow diabetic ulcers with serosanguineous drainage -DP PT pulses bilateral extremities are barely palpable, right lower extremity feels cool to touch Plan: -Vancomycin and Zosyn as above for coverage of cellulitis -We will do x-rays of bilateral lower extremities to rule out underlying osteomyelitis -We will do ultrasound of bilateral lower extremities to rule out DVTs, patient states that he had a left leg DVT many years ago, is off anticoagulation -We will do ABIs as patient has evidence of peripheral arterial disease -I have consulted Dr. Fan for possible bedside debridement of diabetic ulcers Status: Acute Code(s): L03.116 - Cellulitis of left lower limb; L03.115 - Cellulitis of right lower limb (8) Diabetic foot ulcers: Status: Acute Code(s): E11.621 - Type 2 diabetes mellitus with foot ulcer; L97.509 - Non-pressure chronic ulcer of other part of unspecified foot with unspecified severity (9) CHF (congestive heart failure): -Patient has 1+ pitting edema bilaterally, generalized anasarca -Chest x-ray shows some evidence of pulmonary vascular congestion -BNP is pending -EKG initially was a poor quality study, first-degree AV block, right bundle branch block, low voltage QRS, nonspecific T wave changes Plan: -Lasix 40 mg IV once, monitor urine output -Daily dose Lasix based on clinical response -Cardiac echocardiogram ordered Status: Acute Code(s): I50.9 - Heart failure, unspecified Attestations Medical Necessity Statement*: She requires hospitalization, greater than 2 midnights, inpatient, for pneumonia, COPD exacerbation, bilateral lower extremity cellulitis, diabetic ulcers Coding Level of Care Code Acute Conference Services Manager for g Fwd Diagnoses Acute respiratory failure with hypoxia J96.01 Community acquired pneumonia J18.9 Laterality: unspecified laterality COPD (chronic obstructive pulmonary disease) J44.9 Type 2 diabetes mellitus E11.9 Hyperlipidemia E78.5 Hypertension I10 Bilateral lower leg cellulitis L03.116; L03.115 Diabetic foot ulcers E11.621; L97.509 CHF (congestive heart failure) I50.9
[2019-05-30 21:05] LABS: C Reactive Protein 10.9 mg/L (0.0-4.9)
[2019-05-30 21:10] LABS: Estmated Average Glucose 214; Hemoglobin A1C 9.1 % (4.0-6.0)
[2019-05-30] MEDS: iodixanol 320 mg/mL 100mL Btl 95 ML IV (21:52)
[2019-05-30 22:37] LABS: Erythrocyte Sedimentation Rate 1 mm/hr (0-10)
[2019-05-30 22:46] LABS: NT Pro B Type Natriuretic Pept 9969 pg/mL (0-125)
[2019-05-30 22:47] LABS: Thyroid Stimulating Hormone 2.31 uIU/mL (0.27-4.20)
[2019-05-30] MEDS: atorvastatin 40 mg Tablet PO (22:54)
[2019-05-30] MEDS: enoxaparin 40 mg/0.4 mL Syringe SUBCUT (22:54)
[2019-05-30] MEDS: FUROsemide 10 mg/mL SDV 4mL 40 MG IVP (22:54)
--- NOTE | 2019-05-30 22:55 | ECG_ITS ---
Measurements Intervals [place] Rate: 70 P: 48 [place]: 224 QRS: 71 QRSD: 115 T: 87 QT: 428 QTc: 463 SINUS RHYTHM WITH FIRST DEGREE AV BLOCK WITH OCCASIONAL ECTOPIC PREMATURE COMPLE COMPLEXES INDETERMINATE AXIS LOW QRS VOLTAGE IN PRECORDIAL LEADS [QRS DEFLECTION < 1.0 mV IN CHEST LEADS] PATTERN CONSISTENT WITH PULMONARY DISEASE RIGHT BUNDLE BRANCH BLOCK [120+ ms QRS DURATION, UPRIGHT V1, 40+ ms S IN I/ I/aVL/V4/V5/V6] No previous ECG available for comparison Electronically Signed On 05-31-2019 22:18:05 SAP BASIS by Prisca Martinez M.D. [id number]
[2019-05-30] MEDS: labetalol 5 mg/mL SDV 20mL 20 MG IVP (23:22)
[2019-05-30 23:39] LABS: Troponin 5 6HR 44.81 ng/L (0-15)
[2019-05-30 23:50] LABS: Troponin 5 6HR Delta -3.19 ng/L (0-12)
[2019-05-30] MEDS: lisinopril 10 mg Tablet 20 MG PO (23:51)
[2019-05-30] MEDS: vancomycin 1,000 MG in sodium chloride 0.9% 250 ML 250 MG IV (23:51)
[2019-05-30] MEDS: metoprolol tartrate 25 mg Tablet 50 MG PO (23:52)
[2019-05-31] VITALS (24 sets, daily range): BP systolic 164–236; BP diastolic 76–102; PULSE 74–87; RESP 17–25; TEMP 36.3–37.3; O2SAT 90–95
--- NOTE | 2019-05-31 00:05 | PC.PHAR ---
Vancomycin is dosed at 1000mg IVPB every 12 hours to produce predicted trough level of 12.86 (population based pharmacokinetic analysis). A trough level has been ordered from the lab to be obtained before the third dose to confirm and adjust if needed. Zosyn is dosed at 3.375gm IVPB every 8 hours, each dose to be infused over 4 hours per extended infusion protocol.
[2019-05-31 00:33] LABS: Procalcitonin 0.15 ng/mL (0-0.5)
[2019-05-31] MEDS: piperacillin-tazobactam 3.375 GM in sodium chloride 0.9% (plus) 50 ML IV ×3 (01:13→17:06)
[2019-05-31] MEDS: morphine 4 mg/mL SDV 1 mL 1 MG IVP (01:24)
[2019-05-31] MEDS: acetaminophen 325 mg Tablet 650 MG PO (01:25)
[2019-05-31] MEDS: hyDRALAzine 20 mg/mL INJ 1 mL IVP (01:55)
[2019-05-31] MEDS: amlodipine 10 mg Tablet PO (01:55)
[2019-05-31] MEDS: ipratropium-albuterol 3 mL Neb INHALATION ×5 (03:17→21:18)
[2019-05-31 04:26] LABS: Basophils % 0.3 %; Eosinophils % 0.1 %; Hematocrit 59.6 % (42.0-52.0); Lymphocytes # 0.4 10^3/uL (0.8-4.8); Lymphocytes % 5.7 %; Mean Corpuscular HGB Conc 31.9 g/dL (30.0-36.0); Mean Corpuscular Hemoglobin 32.1 pg (28.0-34.0); Mean Corpuscular Volume 100.8 fL (80-94); Mean Platelet Volume 9.9 fL (7.4-10.4); Monocytes # 0.2 10^3/uL (0.2-0.9); Monocytes % 3.1 %; Neutrophils % 90.3 %; Nucleated Red Blood Cells % 0 %; Platelet Count 148 10^3/cmm (130-400); Red Blood Count 5.91 10^6/uL (4.1-5.3); Red Cell Distribution Width 12.4 % (12.1-15.1); White Blood Count 7.7 10^3/uL (4.0-10.0)
[2019-05-31 04:36] LABS: INR 0.91 (0.8-1.2)
[2019-05-31 04:49] LABS: Alanine Aminotransferase 26 U/L (0-41); Alkaline Phosphatase 57 IU/L (40-130); Anion Gap 22.1 (5-19); Aspartate Amino Transferase 31 U/L (0-40); Blood Urea Nitrogen 20 mg/dL (8-23); Calcium 9.1 mg/dL (8.5-10.5); Carbon Dioxide 29 mmol/L (22-29); Chloride 85 mmol/L (98-107); Globulin 3.4 g/dL (1.3-4.6); Glomerular Filtration Rate 61.6 mL/min (90-130); Glucose 188 mg/dL (65-115); Magnesium 1.5 mg/dL (1.7-2.3); Phosphorus 3.6 mg/dL (2.5-4.5); Potassium 4.1 mmol/L (3.5-5.1); Sodium 132 mmol/L (136-145); Total Bilirubin 0.8 mg/dL (0.15-1.2); Total Protein 6.4 g/dL (6.6-8.7)
[2019-05-31] MEDS: cloNIDine 0.1 mg Tablet PO ×2 (05:09→08:30)
[2019-05-31 06:25] LABS: Glucose Point of Care 192 mg/dL (70-110)
[2019-05-31] MEDS: labetalol 5 mg/mL SDV 20mL 20 MG IVP (06:57)
[2019-05-31] MEDS: metoprolol tartrate 25 mg Tablet 50 MG PO (08:31)
[2019-05-31] MEDS: metOLazone 5 MG Tablet PO (08:31)
[2019-05-31] MEDS: atorvastatin 40 mg Tablet PO (08:31)
[2019-05-31] MEDS: pantoprazole DR 40 mg Tablet PO (08:31)
[2019-05-31] MEDS: hyDRALAzine 10 mg Tablet PO ×2 (08:31→14:17)
[2019-05-31] MEDS: spironolactone 25 mg Tablet PO (08:31)
[2019-05-31] MEDS: lisinopril 10 mg Tablet 20 MG PO (08:31)
[2019-05-31] MEDS: FUROsemide 10 mg/mL SDV 4mL 40 MG IVP (08:32)
--- NOTE | 2019-05-31 09:19 | PC.RESP ---
Patient given information on Smoking Cessation and Pulmonary Rehab. Patient verbalized understanding.
[2019-05-31 11:09] LABS: Glucose Point of Care 311 mg/dL (70-110)
[2019-05-31] MEDS: vancomycin 1,000 MG in sodium chloride 0.9% 250 ML 250 MG IV ×2 (11:57→23:53)
--- NOTE | 2019-05-31 12:47 | PM.CONSULT ---
Providers/Reason For Consult Consulting Physican/Specialty*: Hospitalist Reason for Consult*: Diabetic ulcer Attending Physician: Harish Sorensen MD History of Present Illness History of Present Illness Patient is a 59-year-old poorly reviewed controlled diabetic male with venous stasis wounds to bilateral lower extremities. He was admitted to the hospital for pneumonia having failed outpatient oral antibiotics, has had persistent productive cough with subjective fevers and malaise. Regarding his legs, he states that he has had issues with swelling and formation of water blisters, he states this is a recurring thing. He has tried to wear compression stockings to help manage this, he has difficulty getting them on any complaints at they are too tight. He states that the current sores at his legs spontaneously appeared several weeks ago. Review of Systems Const: Reports: fever, fatigue and malaise; Denies: chills Eyes: Denies: change in vision Resp: Reports: shortness of breath and productive cough GI: Denies: abdominal pain, nausea, vomiting or diarrhea : Denies: flank pain, difficulty urinating, painful urination or urinary frequency Musc: Reports: extremity pain, redness and limited range of motion Skin/Breast: Reports: skin swelling, sores and changes in skin color Neuro: Reports: numbness in extremities and changes in sensation Psych: Denies: anxiety or depression Ermias/Lymph: Denies: easy bruising All/Imm: Denies: hives Meds/Allergies Home Medications and Allergies Home Medications Medication Instructions Recorded Confirmed Type Raymond-3 1 g PO BID 05/31/19 05/31/19 History azithromycin [Zithromax Z-Ray] 250 mg PO DAILY 05/31/19 05/31/19 History doxycycline hyclate 100 mg PO BID 05/31/19 05/31/19 History hydrochlorothiazide 25 mg PO DAILY 05/31/19 05/31/19 History lisinopril 40 mg PO BID 05/31/19 05/31/19 History metformin 500 mg PO BIDAC 05/31/19 05/31/19 History metoprolol tartrate 75 mg PO BID 05/31/19 05/31/19 History tizanidine 4 mg PO TID 05/31/19 05/31/19 History Allergies Allergy/AdvReac Type Severity Reaction Status Date / Time No Known Allergies Allergy Verified 05/30/19 16:31 Current Medications Current Medications Generic Name Dose Route Start Last Admin Trade Name Freq PRN Reason Stop Dose Admin Acetaminophen 650 mg 05/30/19 22:12 05/31/19 01:25 Tylenol PO 650 mg Q6H PRN Administration Mild/Mod Pain Or Temp >/= 101 Albuterol/Ipratropium 3 ml 05/30/19 21:00 05/31/19 11:07 Duoneb INHALATION 3 ml Q4H.RESPIRATORY PRADIP Administration Amlodipine Besylate 10 mg 05/31/19 01:45 05/31/19 01:55 Norvasc PO 10 mg DAILY PRADIP Administration Atorvastatin Calcium 40 mg 05/30/19 22:12 05/31/19 08:31 Lipitor PO 40 mg DAILY PRADIP Administration Clonidine HCl 0.1 mg 05/31/19 05:05 05/31/19 08:30 Catapres PO 0.1 mg BID PRADIP Administration Enoxaparin Sodium 40 mg 05/30/19 22:12 05/30/19 22:54 Lovenox SUBCUT 40 mg Q24H PRADIP Administration Furosemide 40 mg 05/31/19 09:02 05/31/19 08:32 Lasix IVP 40 mg Q12H PRADIP Administration Hydralazine HCl 20 mg 05/31/19 01:41 05/31/19 01:55 Apresoline IVP 20 mg Q4H PRN Administration SBP>180 Hydralazine HCl 10 mg 05/31/19 09:00 05/31/19 08:31 Apresoline PO 10 mg TID PRADIP Administration Vancomycin HCl 1,000 mg/ 250 mls @ 250 mls/hr 05/30/19 23:00 05/31/19 11:57 Sodium Chloride IV 250 mls/hr Q12H PRADIP Administration Protocol As Directed Piperacillin Sod/Tazobactam 50 mls @ 12.5 mls/hr 05/31/19 00:00 05/31/19 10:09 Sod 3.375 gm/ Sodium Chloride IV 12.5 mls/hr Q8H PRADIP Administration Protocol As Directed Insulin Aspart 0 unit 05/31/19 08:00 05/31/19 11:59 Novolog SUBCUT 12 unit TIDWM PRADIP Administration Protocol Labetalol HCl 20 mg 05/30/19 23:36 05/31/19 06:57 Trandate IVP 20 mg Q4H PRN Administration SBP>180, hold if HR<60 Lisinopril 20 mg 05/30/19 23:45 05/31/19 08:31 Prinivil PO 20 mg BID PRADIP Administration Methylprednisolone Sodium Succinate 40 mg 05/30/19 21:00 05/31/19 12:02 Solu-Medrol IVP 40 mg Q8H PRADIP Administration Metolazone 5 mg 05/31/19 09:00 05/31/19 08:31 Zaroxolyn PO 5 mg DAILY PRADIP Administration Metoprolol Tartrate 50 mg 05/30/19 23:45 05/31/19 08:31 Lopressor PO 50 mg BID PRADIP Administration Morphine Sulfate 1 mg 05/30/19 22:12 05/31/19 01:24 Morphine IVP 1 mg Q4H PRN Administration SEVERE PAIN Pantoprazole Sodium 40 mg 05/31/19 09:00 05/31/19 08:31 Protonix PO 40 mg DAILY PRADIP Administration Spironolactone 25 mg 05/31/19 09:00 05/31/19 08:31 Aldactone PO 25 mg DAILY PRADIP Administration PFSH Acute PFSH: Statuses (acute, chronic, etc) shown below reflect problem list status as previously entered and may not be historically accurate Medical History (Updated 05/31/19 @ 13:18 by Kaiden Fan DPM) COPD (chronic obstructive pulmonary disease) (Acute) Hyperlipidemia (Acute) Hypertension (Acute) Type 2 diabetes mellitus (Acute) Surgical History (Updated 05/30/19 @ 20:57 by Mario Park MD) History of ventriculoperitoneal shunting (Acute) Family History (Updated 05/30/19 @ 20:58 by Mario Park MD) Other CAD (coronary artery disease) CHF (congestive heart failure) Diabetes Social History (Updated 05/30/19 @ 20:58 by Mario Park MD) Smoking and tobacco status: current every day smoker Alcohol intake: never Substance/Drug Use: never Vitals/I&O/Wt Last Vital Signs Temp 98.8 F 05/31/19 12:00 Pulse 82 05/31/19 12:00 Resp 20 H 05/31/19 12:00 BP 164/76 05/31/19 12:00 Pulse Ox 92 05/31/19 12:00 05/30/19 05/31/19 05/31/19 22:59 06:59 14:59 Intake Total 420 / 420 420 / 420 Output Total 600 / 600 500 / 500 Balance -180 / -180 -80 / -80 Weight last 48 hrs Weight 275 lb Physical Exam Narrative: EXAM NARRATIVE: GENERAL: Patient is alert and oriented ?3 and in no acute distress. The following is a focused bilateral lower extremity exam. VASCULAR: Dorsalis pedis and posterior tibial arteries nonpalpable. Capillary refill time less than 3 seconds to the distal hallux bilaterally. Calf is supple and nontender proximally and distally. Decreased lower extremity and pedal hair growth noted bilaterally. Rubor to the bilateral legs and feet. Skin temperature is warm to cool from the tibial tuberosity down to the dorsal distal digits. Pitting edema to the bilateral lower extremities. NEUROLOGICAL: Protective sensation intact 3/10 sites, tested with Kathryn Philipp monofilament to bilateral feet. DERMATOLOGICAL: Lower extremity integument is thin and atrophic has shiny appearance there is induration at the legs most prominent anteriorly. There are skin pigmentation changes consistent with chronic venous insufficiency bilateral legs. Rubor to bilateral legs and feet. Multitude of wounds with limited to breakdown of skin at anterior medial legs bilaterally as well as anterior ankles bilaterally there is no ida purulent drainage at this time, wounds are not exposed to fat layer or subcutaneous tissue. MUSCULOSKELETAL: Tenderness to palpation at bilateral legs. Pes planus foot type bilaterally. Ankle joint dorsiflexion to neutral bilaterally. First metatarsal phalangeal joint dorsiflexion of the 30 degrees in the sagittal plane. Widened externally rotated gait. Muscle strength is 5 out of 5 in all 3 cardinal planes to bilateral foot and ankle. Data Micro: Micro: Microbiology 05/30/19 23:15 Blood Culture - Pr eliminary Blood SPECIMEN [facility] 05/30/19 23:00 Blood Culture - Pr eliminary Blood SPECIMEN [facility] 05/30/19 17:48 Blood Culture - Pr eliminary Blood SPECIMEN [facility] 05/30/19 17:41 Blood Culture - Pr eliminary Blood SPECIMEN [facility] A&P Assessment and plan (1) Diabetes mellitus with polyneuropathy: Status: Acute Code(s): E11.42 - Type 2 diabetes mellitus with diabetic polyneuropathy (2) Venous ulcer of both lower extremities with varicose veins: Status: Acute Code(s): I83.019 - Varicose veins of right lower extremity with ulcer of unspecified site; I83.029 - Varicose veins of left lower extremity with ulcer of unspecified site; L97.919 - Non-pressure chronic ulcer of unspecified part of right lower leg with unspecified severity; L97.929 - Non-pressure chronic ulcer of unspecified part of left lower leg with unspecified severity (3) PVD (peripheral vascular disease): Status: Acute Code(s): I73.9 - Peripheral vascular disease, unspecified Patient is a 59-year-old poorly controlled diabetic male with venous ulcerations to bilateral lower extremities. Elevated CRP at 10.9. A1c 9.1. Erythrocyte sedimentation rate 1, WBC 7.4. Duplex Doppler negative for DVT the legs, tib-fib views on plain film are negative for acute osseous injury, soft tissue emphysema or foreign body. Patient receiving IV vancomycin and Zosyn for pneumonia. Dressings applied consisting of silver impregnated alginate and Kerlix. Encourage patient to elevate his feet while at rest and avoid dependent position. Will obtain arterial studies while inpatient to aid in treatment options for compression therapy, venous studies for reflux can be done outpatient. Consult Attestations Medical Necessity Statement: Uncontrolled diabetes. Venous insufficiency with bilateral leg wounds. Coding Level of Care Code Acute Investigative Analyst for Chg Fwd Diagnoses Diabetes mellitus with polyneuropathy E11.42 Venous ulcer of both lower extremities with varicose veins I83.019; I83.029; L97.919; L97.929 PVD (peripheral vascular disease) I73.9 Comment CPT 31566
--- NOTE | 2019-05-31 15:14 | USR_ITS ---
PROCEDURE INFORMATION: Exam: US Duplex Lower Extremity Arteries Exam date and time: 05/31/2019 3:59 PM Age: 59 years old Clinical indication: Other: Poor pulses TECHNIQUE: Imaging protocol: Real-time ultrasound scan of the arteries of the bilateral lower extremities with 2-D merida scale, color Doppler flow and spectral waveform analysis. COMPARISON: No relevant prior studies available. FINDINGS: Right common femoral artery: No occlusion or significant stenosis. Monophasic waveform. Moderate diffuse nonocclusive disease Right superficial femoral artery: No occlusion or significant stenosis. Monophasic waveform. Moderate diffuse nonocclusive disease Right popliteal artery: No occlusion or significant stenosis. Monophasic waveform. Right calf/foot arteries: No occlusion or significant stenosis in the visualized arteries. Monophasic waveform. Dorsalis pedis artery is monophasic waveform. Moderate diffuse nonocclusive disease KAYLEIGH 0.4 Left common femoral artery: No occlusion or significant stenosis monophasic waveform. Moderate diffuse nonocclusive disease Left superficial femoral artery: No occlusion or significant stenosis. Monophasic waveform. Moderate diffuse nonocclusive disease Left popliteal artery: No occlusion or significant stenosis. Monophasic waveform. Left calf/foot arteries: No occlusion or significant stenosis in the visualized arteries. Monophasic waveform. Dorsalis pedis artery is patent. Moderate nonocclusive diffuse disease. KAYLEIGH 0.4 US/CV arterial duplex [facility] [id number] IMPRESSION: Low amplitude monophasic waveforms throughout the right and left lower extremity arterial system corresponding to moderate diffuse nonocclusive disease..
[2019-05-31] MEDS: metoprolol tartrate 50 mg Tablet 75 MG PO (17:05)
--- NOTE | 2019-05-31 17:05 | PM.PN ---
Subjective Subjective: Interval history: Patient admitted overnight. H&P and labs noted. On examination this morning patient severely with 3 L nasal cannula saturating over 92%. States he is feeling a lot better now. Patient is concerned about swelling in his legs. Patient states he has been getting out of breath on exertion along with increase in his weight and swelling of both his legs there is been getting worse progressively over last 4 to 5 months. He states he usually is not able to recline in his bed because he gets out of breath. Is not really aware of PNBx has not lying down flat for some time. Does not complain of any fevers or chills. Medications: Medication Review Details: Med rec not in system. On confirming with his home pharmacy patient is on Lisinopril 40 mg twice daily Hydrochlorothiazide 25 mg daily Metoprolol 75 mg twice daily, Tizanidine 4 mg 3 times daily Patient has also recently had a course of Z-Ray and doxycycline. Vitals/I&O/Wt Last Vital Signs Temp 98.1 F 05/31/19 16:00 Pulse 79 05/31/19 16:12 Resp 18 05/31/19 16:08 BP 178/92 05/31/19 16:00 Pulse Ox 93 05/31/19 16:08 05/31/19 05/31/19 05/31/19 06:59 14:59 22:59 Intake Total 420 / 420 420 / 420 440 / 860 Output Total 600 / 600 500 / 500 400 / 900 Balance -180 / -180 -80 / -80 40 / -40 Weight last 48 hrs Weight 124.738 kg Physical Exam Narrative: EXAM NARRATIVE: General: No acute distress, AO x3, HEENT: PERRLA, pupils bilaterally equal and reactive Chest: Normal vesicular breath sounds,b/l lower zones decreased sounds,fine crackles present, equal good air entry bilaterally CVS: S1-S2 regular, ESM at aortic area, soft PSM at apex,, no tachycardia, no gallops, no rubs Abdomen: Soft, nontender, no organomegaly, bowel sounds present Neuro: No focal deficits, no facial deformity, AO x3, power 5/5 in all limbs Ext: b/l legs swelling present all the way upto thigh with pitting edema 2+, pulses not fairly palpable but dopplerable. Data : 05/31/19 02:43 05/31/19 02:43 Micro: Microbiology 05/30/19 23:15 Blood Culture - Preliminary Blood SPECIMEN COLLECTED 05/30/19 23:00 Blood Culture - Preliminary Blood SPECIMEN COLLECTED 05/30/19 17:48 Blood Culture - Preliminary Blood SPECIMEN COLLECTED 05/30/19 17:41 Blood Culture - Preliminary Blood SPECIMEN COLLECTED A&P Assessment and plan (1) Acute respiratory failure with hypoxia: Status: Acute Code(s): J96.01 - Acute respiratory failure with hypoxia (2) CHF (congestive heart failure): Status: Acute Code(s): I50.9 - Heart failure, unspecified (3) COPD (chronic obstructive pulmonary disease): Status: Acute Code(s): J44.9 - Chronic obstructive pulmonary disease, unspecified (4) Bilateral lower leg cellulitis: Status: Acute Code(s): L03.116 - Cellulitis of left lower limb; L03.115 - Cellulitis of right lower limb (5) Type 2 diabetes mellitus: Only uses metformin and he thinks glipizide Given the appearance of his bilateral lower extremities, has findings concerning of poorly controlled diabetes Need to get medication list from [facility] pharmacy Plan: -Mild dose sliding scale -Hemoglobin A1c Status: Acute Code(s): E11.9 - Type 2 diabetes mellitus without complications (6) Hyperlipidemia: Statin Status: Acute Code(s): E78.5 - Hyperlipidemia, unspecified (7) Hypertension: Patient is unsure of the dosing of the medications Start metoprolol 25 twice daily, lisinopril 10 mg Await medication list from [facility] pharmacy Status: Acute Code(s): I10 - Essential (primary) hypertension (8) Diabetic foot ulcers: Status: Acute Code(s): E11.621 - Type 2 diabetes mellitus with foot ulcer; L97.509 - Non-pressure chronic ulcer of other part of unspecified foot with unspecified severity Additional A&P Information Acute hypoxic respiratory failure: Most likely due to CHF with component of COPD. Congestive heart failure most likely due to elevated proBNP along with bilateral lower limb edema along with bilateral pleural effusions. No echo in the system. Echo done this morning. Will await for results. Patient at present is on spironolactone, metolazone, hydrochlorothiazide, IV Lasix. Patient is not in renal failure so we will stop metolazone, spironolactone and hydrochlorothiazide for now. We will continue with IV Lasix but will increase dose to 40 mg twice daily. Strict input and output charting. Daily weights. Strict fluid restriction to 1500 cc/day. CTA negative for PE. COPD: Patient does have extensive smoking history. Oxygen supplementation keeping saturation over 92%. DuoNeb's [id number], budesonide twice daily, albuterol as needed. Patient was started on IV steroids 40 mg every 8 hours. We will continue on same for now and plan from weaning from tomorrow. Patient would most likely need home O2 evaluation before discharge. Concerns for pneumonia: Pro-Fabian negative. Patient has been afebrile. White count is normal. Chances of pneumonia are low. Cellulitis: Most likely due to venous stasis versus diabetes: Patient is already been started on vancomycin and Zosyn. Will continue on same for now. Check MRSA swab. Blood cultures were already sent. Will de-escalate antibiotics as per blood culture results. X-ray negative for any bony involvement. We will check ESR and CRP as well. Venous Dopplers negative for any DVTs. Lower limb pulses are not well palpable. Will check KAYLEIGH to rule out peripheral vascular disease. Elevate foot for venous stasis. Dr. Fan's recommendations appreciated. Wound dressing as per Dr. Fan. Hypertension: Patient blood pressure since admission has been on the higher side. On medical reconciliation patient's doses are different than inpatient. We will continue home dose of metoprolol 75 mg twice daily, lisinopril 40 mg daily. We will continue with added amlodipine 10 mg daily but will increase hydralazine to 25 mg 3 times daily. Will discontinue clonidine for now. Hydralazine IV as needed for blood pressures more than 170 systolic. Type 2 DM: HBA1c 9. C/w ISS at mod sliding scale. Cardiac diabetic diet Full code Cardiac diabetic diet Telemetry monitoring Protonix for PUD prophylaxis Lovenox for DVT prophylaxis Attestations Medical Necessity Statement*: for CHF, cellulitis Time Spent in Patient Care: Greater than 35 minutes Coding Level of Care Code Acute Apprentice Lineman Third [facility] for [facility] Fwd Diagnoses Acute respiratory failure with hypoxia J96.01 CHF (congestive heart failure) I50.9 COPD (chronic obstructive pulmonary disease) J44.9 Bilateral lower leg cellulitis L03.116; L03.115 Type 2 diabetes mellitus E11.9 Hyperlipidemia E78.5 Hypertension I10 Diabetic foot ulcers E11.621; L97.509
[2019-05-31 17:25] LABS: Glucose Point of Care 239 mg/dL (70-110)
--- NOTE | 2019-05-31 20:40 | USCV_ITS ---
Corey Rushing Age: 59 Gender: M : 1960 Exam Date: 05/31/2019 07:40 Ordering Phys: Mario Park MD Technologist: Keshia Sharma Exam Location: [facility] [place] Indication: DECREASED PULSES RIGHT LEFT Brachial mmHg Brachial 189.00 mmHg Pressure (mmHg) Waveform Pressure (mmHg) Waveform 62.00 [employer]ER 66.00 64.00 DPA 60.00 0.34 Ankle/Brachial Index 0.32 0.26 Pre-Exercise Toe/Brachial Index 0.24 FINDINGS Abnormal resting ABIs and TBIs bilaterally CONCLUSIONS Markedly diminished resting ABIs and TBIs bilaterally, suggestive of severe peripheral artery disease, possibly multisegmental Dr Noah Liang MD [facility] (Electronically Signed) Final Date: 03 June 2019 14:09 S
--- NOTE | 2019-05-31 20:40 | USCV_ITS ---
Corey Rushing Age: 59 Gender: M : 1960 Exam Date: 05/31/2019 06:19 Ordering Phys: Mario Park MD Technologist: Keshia Sharma Exam Location: [facility] [place] Indication: SOB HISTORY: History RLE DVT years ago per patient verbal history. SOB, PROCEDURES: Bilaterally, the common femoral, superficial femoral, profunda femoral, popliteal, posterior tibial, greater saphenous veins, and the peroneal trunk were identified and interrogated in the standard fashion. FINDINGS: Normal 2-D Doppler and augmentation and compressibility throughout the lower extremity venous structures. Additional imaging through the proximal calf veins also reveals no thrombus. Limited evaluation of the greater saphenous vein is patent with no thrombus. CONCLUSIONS No DVT bilateral lower extremities. Dr. Ann Lan DO (Electronically Signed) Final Date: 31 May 2019 09:15 S
[2019-05-31] MEDS: budesonide 0.5 mg/2 mL Neb INHALATION (21:18)
[2019-05-31] MEDS: hyDRALAzine 25 mg Tablet PO (21:52)
[2019-05-31] MEDS: enoxaparin 40 mg/0.4 mL Syringe SUBCUT (21:54)
--- NOTE | 2019-05-31 22:12 | USCV_ITS ---
ToreyCorey corona Age: 59 Gender: M : 1960 Exam Date: 05/31/2019 06:52 Ordering Phys: Mario Park MD Technologist: Keshia Sharma Exam Location: [facility] [place] Indication: SOB BP: 200 / 102 HR: 84 Rhythm: Sinus Technical Quality: Suboptimal MEASUREMENTS (Male / Female) Normal Values 2D ECHO LV Diastolic Diameter PLAX 3.0 cm 4.2 - 5.9 / 3.9 - 5.3 cm LV Systolic Diameter PLAX 1.4 cm IVS Diastolic Thickness 1.3 cm 0.6 - 1.0 / 0.6 - 0.9 cm IVS Systolic Thickness 1.4 cm LVPW Diastolic Thickness 1.4 cm 0.6 - 1.0 / 0.6 - 0.9 cm LVPW Systolic Thickness 1.5 cm LVOT Diameter 2.1 cm LV Ejection Fraction 2D Teich 84.3 % LA Diameter 3.3 cm LA Width 2.6 cm LA Height 4.3 cm RA Width 4.9 cm RA Height 5.1 cm M-MODE LV Diastolic Diameter MM 4.3 cm 4.2 - 5.9 / 3.9 - 5.3 cm LV Systolic Diameter MM 2.2 cm LV Ejection Fraction MM Teich 80.8 % IVS Diastolic Thickness MM 1.3 cm 0.6 - 1.0 / 0.6 - 0.9 cm IVS Systolic Thickness MM 1.5 cm LVPW Diastolic Thickness MM 0.9 cm 0.6 - 1.0 / 0.6 - 0.9 cm LVPW Systolic Thickness MM 1.7 cm Aortic Annulus Diameter 4.2 cm LA Ao Ratio MM 0.8 FINDINGS Left Ventricle Normal left ventricular cavity size. Left ventricular ejection fraction is estimated at 55%. Due to poor image quality diastolic function cannot be assessed . Right Ventricle Moderately increased right ventricular size. Moderately decreased right ventricular systolic function. If clinically indicated we will consider be hypertension or embolism.RVSP could not be calculated due to incomplete tricuspid regurgitation velocity profile. Right Atrium Moderately increased right atrial size. Left Atrium The left atrium is normal in size. Mitral Valve Structurally normal mitral valve. No mitral valve stenosis. Aortic Valve Aortic valve not well visualized due to suboptimal image quality however it appeared to be thickened and stenotic. If clinically indicated transesophageal echo will be a good modality. Tricuspid Valve Tricuspid valve is opening and closing fine however cannot assess regurgitation due to poor image quality Pulmonic Valve Pulmonic valve not well visualized. Pericardium Normal pericardium without effusion. Aorta Normal ascending aorta dimension. CONCLUSIONS 1-Normal left ventricular cavity size. Left ventricular ejection fraction is estimated at 55%. Due to poor image quality diastolic function cannot be assessed . 2-Moderately increased right ventricular size. Moderately decreased right ventricular systolic function. If clinically indicated we will consider be hypertension or embolism. 3-Moderately increased right atrial size. 4-Aortic valve not well visualized due to suboptimal image quality however it appeared to be thickened and stenotic. If clinically indicated transesophageal echo will be a good modality. 5-Tricuspid valve is opening and closing fine however cannot assess regurgitation due to poor image quality. 6-There is no pericardial effusion. 7-RVSP could not be calculated due to incomplete tricuspid regurgitation velocity profile. 8-There are no prior echocardiogram studies to compare. Prisca Martinez MD (Electronically Signed) Final Date: 31 May 2019 16:27 S
[2019-05-31 22:15] LABS: Glucose Point of Care 202 mg/dL (70-110)
[2019-05-31 23:10] LABS: Vancomycin Trough 12.1 ug/mL (10-15)
[2019-05-31] MEDS: FUROsemide 10 mg/mL SDV 10mL 80 MG IVP (23:53)
[2019-06-01] VITALS (13 sets, daily range): BP systolic 172–194; BP diastolic 73–99; PULSE 72–89; RESP 17–21; TEMP 36.5–36.9; O2SAT 88–93
[2019-06-01] MEDS: piperacillin-tazobactam 3.375 GM in sodium chloride 0.9% (plus) 50 ML IV ×2 (02:58→12:52)
[2019-06-01] MEDS: ipratropium-albuterol 3 mL Neb INHALATION ×4 (03:35→20:01)
[2019-06-01 06:17] LABS: Hematocrit 58.1 % (42.0-52.0); Hemoglobin 18.9 g/dL (11.7-16.6); Lymphocytes # 0.6 10^3/uL (0.8-4.8); Lymphocytes % 6.1 %; Mean Corpuscular HGB Conc 32.5 g/dL (30.0-36.0); Mean Corpuscular Hemoglobin 32.5 pg (28.0-34.0); Mean Corpuscular Volume 99.8 fL (80-94); Mean Platelet Volume 9.4 fL (7.4-10.4); Monocytes # 0.5 10^3/uL (0.2-0.9); Monocytes % 5.1 %; Neutrophils # 7.9 10^3/uL (1.8-7.7); Nucleated Red Blood Cells % 0 %; Platelet Count 188 10^3/cmm (130-400); Red Blood Count 5.82 10^6/uL (4.1-5.3); Red Cell Distribution Width 12.4 % (12.1-15.1)
[2019-06-01 06:47] LABS: Alanine Aminotransferase 24 U/L (0-41); Albumin Level 3.1 g/dL (3.5-5.2); Alkaline Phosphatase 52 IU/L (40-130); Anion Gap 18.6 (5-19); Aspartate Amino Transferase 25 U/L (0-40); Blood Urea Nitrogen 23 mg/dL (8-23); Calcium 9.2 mg/dL (8.5-10.5); Carbon Dioxide 35 mmol/L (22-29); Chloride 86 mmol/L (98-107); Creatinine Clr Calc Pharmacy 72.3502; Globulin 3.7 g/dL (1.3-4.6); Glomerular Filtration Rate 51.5 mL/min (90-130); Glucose 240 mg/dL (65-115); Magnesium 1.6 mg/dL (1.7-2.3); Phosphorus 4.1 mg/dL (2.5-4.5); Potassium 3.6 mmol/L (3.5-5.1); Sodium 136 mmol/L (136-145); Total Bilirubin 0.5 mg/dL (0.15-1.2); Total Protein 6.8 g/dL (6.6-8.7)
[2019-06-01 07:56] LABS: Glucose Point of Care 217 mg/dL (70-110)
[2019-06-01] MEDS: pantoprazole DR 40 mg Tablet PO (08:27)
[2019-06-01] MEDS: metoprolol tartrate 50 mg Tablet 75 MG PO ×2 (08:27→17:45)
[2019-06-01] MEDS: amlodipine 10 mg Tablet PO (08:27)
[2019-06-01] MEDS: hyDRALAzine 25 mg Tablet PO (08:28)
[2019-06-01] MEDS: atorvastatin 40 mg Tablet PO (08:28)
[2019-06-01] MEDS: lisinopril 20 mg Tablet 40 MG PO (08:28)
[2019-06-01] MEDS: budesonide 0.5 mg/2 mL Neb INHALATION ×2 (09:18→20:01)
[2019-06-01 12:27] LABS: Glucose Point of Care 293 mg/dL (70-110)
[2019-06-01] MEDS: FUROsemide 10 mg/mL SDV 10mL 80 MG IVP ×2 (14:05→22:40)
[2019-06-01] MEDS: vancomycin 1,000 MG in sodium chloride 0.9% 250 ML 250 MG IV (16:06)
[2019-06-01] MEDS: hyDRALAzine 50 mg Tablet PO ×2 (16:06→22:40)
[2019-06-01 17:17] LABS: Glucose Point of Care 149 mg/dL (70-110)
--- NOTE | 2019-06-01 17:38 | PM.PN ---
Subjective Subjective: Interval history: Patient examined this morning. He states he is feeling a lot better but still out of breath. On examination patient is saturating more than 92% on 3 L nasal cannula. He states his swelling is going down but is still bothering him. Echocardiogram was done yesterday. Medications: Medication Review Details: Med rec not in system. On confirming with his home pharmacy patient is on Lisinopril 40 mg twice daily Hydrochlorothiazide 25 mg daily Metoprolol 75 mg twice daily, Tizanidine 4 mg 3 times daily Patient has also recently had a course of Z-Ray and doxycycline. Vitals/I&O/Wt Last Vital Signs Temp 97.7 F 06/01/19 16:00 Pulse 75 06/01/19 16:00 Resp 18 06/01/19 16:00 BP 177/82 06/01/19 16:00 Pulse Ox 89 L 06/01/19 16:00 06/01/19 06/01/19 06/01/19 06:59 14:59 22:59 Intake Total 700 / 2150 480 / 480 Output Total 1625 / 3525 1000 / 1000 1000 / 2000 Balance -925 / -1375 -520 / -520 -1000 / -1520 Physical Exam Narrative: EXAM NARRATIVE: General: No acute distress, AO x3, HEENT: PERRLA, pupils bilaterally equal and reactive Chest: Normal vesicular breath sounds,b/l lower zones decreased sounds,fine crackles present, equal good air entry bilaterally CVS: S1-S2 regular, ESM at aortic area 2/6, soft PSM at apex, no tachycardia, no gallops, no rubs Abdomen: Soft, nontender, no organomegaly, bowel sounds present Neuro: No focal deficits, no facial deformity, AO x3, power 5/5 in all limbs Ext: b/l legs swelling present all the way upto thigh with pitting edema 2+, pulses not fairly palpable but dopplerable. Data : 06/01/19 05:58 06/01/19 05:58 Micro: Microbiology 06/01/19 02:24 Gram Stain - Final Sputum - Expectorated Sputum 05/31/19 19:05 MRSA Culture - Final Nose 05/30/19 23:15 Blood Culture - Preliminary Blood NEGATIVE TO DATE 05/30/19 23:00 Blood Culture - Preliminary Blood NEGATIVE TO DATE 05/30/19 17:48 Blood Culture - Preliminary Blood NEGATIVE TO DATE 05/30/19 17:41 Blood Culture - Preliminary Blood NEGATIVE TO DATE A&P Assessment and plan (1) Acute respiratory failure with hypoxia: Status: Acute Code(s): J96.01 - Acute respiratory failure with hypoxia (2) CHF (congestive heart failure): Status: Acute Code(s): I50.9 - Heart failure, unspecified (3) COPD (chronic obstructive pulmonary disease): Status: Acute Code(s): J44.9 - Chronic obstructive pulmonary disease, unspecified (4) Bilateral lower leg cellulitis: Status: Acute Code(s): L03.116 - Cellulitis of left lower limb; L03.115 - Cellulitis of right lower limb (5) Type 2 diabetes mellitus: Status: Acute Code(s): E11.9 - Type 2 diabetes mellitus without complications (6) Hyperlipidemia: Statin Status: Acute Code(s): E78.5 - Hyperlipidemia, unspecified (7) Hypertension: Patient is unsure of the dosing of the medications Start metoprolol 25 twice daily, lisinopril 10 mg Await medication list from [facility] Status: Acute Code(s): I10 - Essential (primary) hypertension (8) Diabetic foot ulcers: Status: Acute Code(s): E11.621 - Type 2 diabetes mellitus with foot ulcer; L97.509 - Non-pressure chronic ulcer of other part of unspecified foot with unspecified severity Additional A&P Information Acute hypoxic respiratory failure: Most likely due to CHF with component of COPD. Congestive heart failure most likely due to elevated proBNP along with bilateral lower limb edema along with bilateral pleural effusions. ECHO results reviewed. EF appears normal normal with dilated RA and RV with possible tricuspid regurgitation and possible aortic stenosis. Diastolic dysfunction could not be ruled out given the poor echo window. Patient might require CAITLYN going forward for reviewing of valvular lesions once more euvolemic. Patient is net 3 L negative. Feeling little better. Continue with IV Lasix at 80 mg every 12 hours. Strict input and output charting. Daily weights. Strict fluid restriction to 1500 cc/day. CTA negative for PE. COPD: Patient does have extensive smoking history. Oxygen supplementation keeping saturation over 92%. DuoNeb's [id number], budesonide twice daily, albuterol as needed. P wean with her Solu-Medrol to 40 mg every 12 hourly. Patient would most likely need home O2 evaluation before discharge. Concerns for pneumonia: Pro-Fabian negative. Patient has been afebrile. White count is normal. Chances of pneumonia are low. Cellulitis: Most likely due to venous stasis versus diabetes: Patient is already been started on vancomycin and Zosyn. Will continue on same for now. MRSA negative. Blood cultures were already sent. Will de-escalate antibiotics as per blood culture results. X-ray negative for any bony involvement. We will check ESR and CRP as well. Venous Dopplers negative for any DVTs. Lower limb pulses are not well palpable. KAYLEIGH suggestive of nonocclusive disease. We will start patient on aspirin 81 mg. Continue with statins. Elevate foot for venous stasis. Dr. Fan's recommendations appreciated. Wound dressing as per Dr. Fan. Hypertension: Blood pressure a lot better controlled since admission. We will continue with metoprolol 75 mg twice daily, lisinopril and will increase hydralazine to 50 mg every 8 hourly. Hydralazine IV as needed for blood pressures more than 170 systolic. Type 2 DM: HBA1c 9. C/w ISS at mod sliding scale. Cardiac diabetic diet Full code Cardiac diabetic diet Telemetry monitoring Protonix for PUD prophylaxis Lovenox for DVT prophylaxis Attestations Medical Necessity Statement*: Needs further hospitalization for cellulitis and CHF Time Spent in Patient Care: 16 - 35 minutes Coding Level of Care Code Acute Fiberglass Laminator for [facility] Fwd Diagnoses Acute respiratory failure with hypoxia J96.01 CHF (congestive heart failure) I50.9 COPD (chronic obstructive pulmonary disease) J44.9 Bilateral lower leg cellulitis L03.116; L03.115 Type 2 diabetes mellitus E11.9 Hyperlipidemia E78.5 Hypertension I10 Diabetic foot ulcers E11.621; L97.509
[2019-06-01 21:29] LABS: Glucose Point of Care 246 mg/dL (70-110)
[2019-06-01] MEDS: enoxaparin 40 mg/0.4 mL Syringe SUBCUT (22:40)
[2019-06-02] VITALS (15 sets, daily range): BP systolic 145–208; BP diastolic 79–85; PULSE 69–83; RESP 16–24; TEMP 36.5–36.9; O2SAT 87–93
[2019-06-02] MEDS: ipratropium-albuterol 3 mL Neb INHALATION ×4 (02:19→20:28)
[2019-06-02] MEDS: vancomycin 1,000 MG in sodium chloride 0.9% 250 ML 250 MG IV (02:55)
[2019-06-02] MEDS: piperacillin-tazobactam 3.375 GM in sodium chloride 0.9% (plus) 50 ML IV ×2 (04:38→12:05)
[2019-06-02 05:49] LABS: Basophils % 0.2 %; Eosinophils % 0.1 %; Hematocrit 58.3 % (42.0-52.0); Hemoglobin 19.1 g/dL (11.7-16.6); Lymphocytes # 0.9 10^3/uL (0.8-4.8); Lymphocytes % 8.1 %; Mean Corpuscular HGB Conc 32.8 g/dL (30.0-36.0); Mean Corpuscular Hemoglobin 31.4 pg (28.0-34.0); Mean Corpuscular Volume 95.9 fL (80-94); Mean Platelet Volume 9.8 fL (7.4-10.4); Monocytes # 0.9 10^3/uL (0.2-0.9); Monocytes % 7.6 %; Neutrophils # 9.7 10^3/uL (1.8-7.7); Neutrophils % 83.1 %; Nucleated Red Blood Cells % 0 %; Platelet Count 197 10^3/cmm (130-400); Red Blood Count 6.08 10^6/uL (4.1-5.3); Red Cell Distribution Width 12.2 % (12.1-15.1); White Blood Count 11.6 10^3/uL (4.0-10.0)
[2019-06-02 06:03] LABS: Alkaline Phosphatase 47 IU/L (40-130); Chloride 79 mmol/L (98-107); Potassium 3.4 mmol/L (3.5-5.1); Sodium 134 mmol/L (136-145)
[2019-06-02 06:28] LABS: Anion Gap 18.4 (5-19); Blood Urea Nitrogen 28 mg/dL (8-23); Calcium 9.8 mg/dL (8.5-10.5); Carbon Dioxide 40 mmol/L (22-29); Creatinine Clr Calc Pharmacy 72.3502; Globulin 4.2 g/dL (1.3-4.6); Glomerular Filtration Rate 51.5 mL/min (90-130); Glucose 251 mg/dL (65-115); Magnesium 1.7 mg/dL (1.7-2.3); Phosphorus 3.3 mg/dL (2.5-4.5); Total Bilirubin 0.6 mg/dL (0.15-1.2); Total Protein 7.2 g/dL (6.6-8.7)
[2019-06-02 06:40] LABS: Aspartate Amino Transferase 33 U/L (0-40)
[2019-06-02 06:54] LABS: Alanine Aminotransferase 28 U/L (0-41)
[2019-06-02 07:22] LABS: Glucose Point of Care 209 mg/dL (70-110)
[2019-06-02] MEDS: pantoprazole DR 40 mg Tablet PO (08:11)
[2019-06-02] MEDS: amlodipine 10 mg Tablet PO (08:11)
[2019-06-02] MEDS: atorvastatin 40 mg Tablet PO (08:11)
[2019-06-02] MEDS: aspirin 81 mg EC Tablet PO (08:11)
[2019-06-02] MEDS: hyDRALAzine 50 mg Tablet PO ×3 (08:11→20:48)
[2019-06-02] MEDS: metoprolol tartrate 50 mg Tablet 75 MG PO (08:11)
[2019-06-02] MEDS: lisinopril 20 mg Tablet 40 MG PO (08:11)
--- NOTE | 2019-06-02 08:26 | US_ITS ---
WS: [id number] Renal and urinary bladder ultrasound HISTORY: 59-year-old male with chronic kidney disease. COMPARISON: None available. TECHNIQUE: Grayscale and Doppler ultrasound exams of the kidneys and urinary bladder. FINDINGS: Abdominal aorta is obscured by shadowing bowel gas. Left kidney superior pole cyst measures 4 x 3.8 x 3.7 cm. Bilaterally, no solid or other cystic mass seen. Renal parenchyma echogenicity unremarkable. No significant renal parenchymal volume loss. No hydronephrosis or shadowing calculus. Urinary bladd er not abnormally distended. No appreciable urinary bladder wall thickening. Right kidney measures 4. 7 x 5.0 x 12.6 cm and left kidney 4.9 x 6.0 x 11.8 cm. US/US renal BI with bladder IMPRESSION: 1. Technically limited examination. 2. Left renal simple appearing cyst. 3. No hydronephrosis or evidence of nephrolithiasis. 4. Unremarkable urinary bladder.
--- NOTE | 2019-06-02 08:26 | US_ITS ---
WS: [id number] Limited abdominal ultrasound HISTORY: 59-year-old male with secondary hypertension. FINDINGS: Attempted renal artery duplex Doppler ultrasound, however due to shadowing bowel gas, body habitus, a nd patient's shortness of breath, examination is nondiagnostic. Follow-up CT angiogram abdominal aort a could be performed if clinically appropriate.
[2019-06-02] MEDS: carvedilol 12.5 mg Tablet PO ×2 (08:54→17:23)
[2019-06-02] MEDS: budesonide 0.5 mg/2 mL Neb INHALATION ×2 (09:02→20:28)
[2019-06-02] MEDS: FUROsemide 10 mg/mL SDV 4mL 40 MG IVP ×2 (09:47→21:12)
[2019-06-02 11:23] LABS: Glucose Point of Care 181 mg/dL (70-110)
--- NOTE | 2019-06-02 11:50 | PC.SOCIAL ---
IMM Page 2 of IMM explained to and signed by patient. He verbalizes understanding. Initialed, dated, and timed and placed in chart. Copy provided to patient.
--- NOTE | 2019-06-02 12:25 | P.PN_ITS ---
Subjective Subjective: Interval history: Patient examined this morning. He states he is feeling a lot better but still out of breath on exertion. On examination patient is saturating more than 92% on 3 L nasal cannula blood on room air dropping down to 70s. He states his swelling is going down but is still bothering him. Medications: Medication Review Details: On confirming with his home pharmacy patient is on Lisinopril 40 mg twice daily Hydrochlorothiazide 25 mg daily Metoprolol 75 mg twice daily, Tizanidine 4 mg 3 times daily Patient has also recently had a course of Z-Ray and doxycycline. Vitals/I&O/Wt Last Vital Signs Temp 97.8 F 06/02/19 11:20 Pulse 69 06/02/19 11:20 Resp 22 H 06/02/19 11:20 BP 145/81 06/02/19 11:20 Pulse Ox 87 L 06/02/19 11:20 06/01/19 06/02/19 06/02/19 22:59 06:59 14:59 Intake Total 300 / 780 340 / 1120 50 / 50 Output Total 1000 / 2000 1875 / 3875 700 / 700 Balance -700 / -1220 -1535 / -2755 -650 / -650 Physical Exam Narrative: EXAM NARRATIVE: General: No acute distress, AO x3, HEENT: PERRLA, pupils bilaterally equal and reactive Chest: Normal vesicular breath sounds,b/l lower zones decreased sounds, equal g ood air entry bilaterally CVS: S1-S2 regular, ESM at aortic area 2/6, soft PSM at apex, no tachycardia, no gallops, no rubs Abdomen: Soft, nontender, no organomegaly, bowel sounds present Neuro: No focal deficits, no facial deformity, AO x3, power 5/5 in all limbs Ext: b/l legs swelling present all the way upto thigh with pitting edema 2+, pulses not fairly palpable but dopplerable. Data : 06/02/19 04:56 06/02/19 04:56 Micro: Microbiology 06/01/19 02:24 Gram Stain - Final Sputum - Expectorated Sputum Sputum Culture - Preliminary 05/31/19 19:05 MRSA Culture - Final Nose A&P Assessment and plan (1) Acute respiratory failure with hypoxia: Status: Acute Code(s): J96.01 - Acute respiratory failure with hypoxia (2) CHF (congestive heart failure): Status: Acute Code(s): I50.9 - Heart failure, unspecified (3) COPD (chronic obstructive pulmonary disease): Status: Acute Code(s): J44.9 - Chronic obstructive pulmonary disease, unspecified (4) Bilateral lower leg cellulitis: Status: Acute Code(s): L03.116 - Cellulitis of left lower limb; L03.115 - Cellulitis of right lower limb (5) Type 2 diabetes mellitus: Status: Acute Code(s): E11.9 - Type 2 diabetes mellitus without complications (6) Hyperlipidemia: Statin Status: Acute Code(s): E78.5 - Hyperlipidemia, unspecified (7) Hypertension: Patient is unsure of the dosing of the medications Start metoprolol 25 twice daily, lisinopril 10 mg Await medication list from [facility] pharmacy Status: Acute Code(s): I10 - Essential (primary) hypertension (8) Diabetic foot ulcers: Status: Acute Code(s): E11.621 - Type 2 diabetes mellitus with foot ulcer; L97.509 - Non-pressure chronic ulcer of other part of unspecified foot with unspecified severity Additional A&P Information Acute hypoxic respiratory failure: Most likely due to CHF with component of COPD. Congestive heart failure most likely due to elevated proBNP along with bilateral lower limb edema along with bilateral pleural effusions. ECHO results reviewed. EF appears normal normal with dilated RA and RV with possible tricuspid regurgitation and possible aortic stenosis. Diastolic dysfunction could not be ruled out given the poor echo window. Patient might require CAITLYN going forward for reviewing of valvular lesions once more euvolemic. Patient is net 5L negative. Feeling little better. We will decrease Lasix to 40 mg every 12 hours today. Can change to oral from tomorrow morning. Strict input and output charting. Daily weights. Strict fluid restriction to 1500 cc/day. CTA negative for PE. COPD: Patient does have extensive smoking history. Oxygen supplementation keeping saturation over 92%. DuoNeb's [id number], budesonide twice daily, albuterol as needed. We will decrease Solu-Medrol to 40 mg daily. Patient would most likely need home O2 evaluation before discharge. Physical therapy evaluation today. Concerns for pneumonia: Pro-Fabian negative. Patient has been afebrile. White count is normal. Chances of pneumonia are low. Cellulitis: Most likely due to venous stasis and diabetes: MRSA and blood cultures are negative till date. We will change from vancomycin and Zosyn to cefazolin. We will also add Levaquin orally to cover for Pseudomonas for now. Patient would most likely need treatment for overall 5 days. Day 3 of treatment today. Venous Dopplers negative for any DVTs. Lower limb pulses are not well palpable. KAYLEIGH suggestive of nonocclusive disease. We will start patient on aspirin 81 mg. Continue with statins. Elevate foot for venous stasis. Dr. Fan's recommendations appreciated. Wound dressing as per Dr. Fan. Hypertension: Blood pressure a lot better controlled since admission. But still little elevated. We will change metoprolol 75 mg twice daily to Coreg 12.5 mg twice daily for better blood pressure control and will continue with lisinopril and hydralazine to 50 mg every 8 hourly. Hydralazine IV as needed for blood pressures more than 170 systolic. Type 2 DM: HBA1c 9. C/w ISS at mod sliding scale. Needing 20 units of insulin last 24 hours. Cardiac diabetic diet Full code Cardiac diabetic diet Telemetry monitoring Protonix for PUD prophylaxis Lovenox for DVT prophylaxis Attestations Medical Necessity Statement*: Needs further hospitalization for management of right-sided heart failure and cellulitis. Time Spent in Patient Care: Greater than 35 minutes Coding Level of Care Code Acute Mash Preparatory Operator for [facility] Diagnoses Acute respiratory failure with hypoxia J96.01 CHF (congestive heart failure) I50.9 COPD (chronic obstructive pulmonary disease) J44.9 Bilateral lower leg cellulitis L03.116; L03.115 Type 2 diabetes mellitus E11.9 Hyperlipidemia E78.5 Hypertension I10 Diabetic foot ulcers E11.621; L97.509
[2019-06-02] MEDS: levoFLOXacin 500 mg Tablet PO (13:39)
[2019-06-02] MEDS: ceFAZolin 1,000 MG in sodium chloride 0.9% (plus) 50 ML 150 MG IV ×2 (13:40→20:52)
--- NOTE | 2019-06-02 14:20 | PC.NURSE ---
The patient complained about being dizzy. i reported this to Jethro.
[2019-06-02 16:34] LABS: Glucose Point of Care 217 mg/dL (70-110)
--- NOTE | 2019-06-02 19:00 | PC.NURSE ---
Introduction of staff and report received, aidet.
[2019-06-02] MEDS: ALPRAZolam 0.25 mg Tablet PO (20:51)
[2019-06-02 20:53] LABS: Glucose Point of Care 256 mg/dL (70-110)
[2019-06-02] MEDS: enoxaparin 40 mg/0.4 mL Syringe SUBCUT (20:57)
[2019-06-03] VITALS (16 sets, daily range): BP systolic 109–187; BP diastolic 66–81; PULSE 70–88; RESP 16–24; TEMP 36.3–36.9; O2SAT 86–93
[2019-06-03] MEDS: ipratropium-albuterol 3 mL Neb INHALATION ×4 (02:48→20:12)
[2019-06-03 05:36] LABS: Basophils % 0.2 %; Eosinophils % 0.3 %; Hematocrit 60.8 % (42.0-52.0); Lymphocytes # 1.5 10^3/uL (0.8-4.8); Lymphocytes % 12.8 %; Mean Corpuscular HGB Conc 32.9 g/dL (30.0-36.0); Mean Corpuscular Hemoglobin 32.1 pg (28.0-34.0); Mean Corpuscular Volume 97.6 fL (80-94); Mean Platelet Volume 9.4 fL (7.4-10.4); Monocytes # 1.2 10^3/uL (0.2-0.9); Monocytes % 9.8 %; Neutrophils % 76.3 %; Nucleated Red Blood Cells % 0 %; Platelet Count 188 10^3/cmm (130-400); Red Blood Count 6.23 10^6/uL (4.1-5.3); Red Cell Distribution Width 12.1 % (12.1-15.1); White Blood Count 11.8 10^3/uL (4.0-10.0)
[2019-06-03 05:44] LABS: Glucose Point of Care 241 mg/dL (70-110)
[2019-06-03 05:55] LABS: Alanine Aminotransferase 31 U/L (0-41); Albumin Level 2.9 g/dL (3.5-5.2); Alkaline Phosphatase 47 IU/L (40-130); Anion Gap 17.3 (5-19); Blood Urea Nitrogen 27 mg/dL (8-23); Chloride 80 mmol/L (98-107); Globulin 3.1 g/dL (1.3-4.6); Glomerular Filtration Rate 61.6 mL/min (90-130); Glucose 196 mg/dL (65-115); Potassium 3.3 mmol/L (3.5-5.1); Sodium 135 mmol/L (136-145); Total Bilirubin 0.9 mg/dL (0.15-1.2)
[2019-06-03 05:58] LABS: Aspartate Amino Transferase 37 U/L (0-40)
[2019-06-03 05:59] LABS: Carbon Dioxide 41 mmol/L (22-29)
[2019-06-03] MEDS: ceFAZolin 1,000 MG in sodium chloride 0.9% (plus) 50 ML 150 MG IV ×3 (06:21→22:14)
[2019-06-03] MEDS: levoFLOXacin 500 mg Tablet PO (06:22)
[2019-06-03] MEDS: aspirin 81 mg EC Tablet PO (08:01)
[2019-06-03] MEDS: hyDRALAzine 50 mg Tablet PO ×3 (08:01→22:13)
[2019-06-03] MEDS: atorvastatin 40 mg Tablet PO (08:02)
[2019-06-03] MEDS: carvedilol 12.5 mg Tablet PO ×2 (08:02→17:41)
[2019-06-03] MEDS: pantoprazole DR 40 mg Tablet PO (08:02)
[2019-06-03] MEDS: amlodipine 10 mg Tablet PO (08:02)
[2019-06-03] MEDS: lisinopril 20 mg Tablet 40 MG PO (08:02)
[2019-06-03] MEDS: budesonide 0.5 mg/2 mL Neb INHALATION ×2 (08:39→20:12)
[2019-06-03] MEDS: FUROsemide 10 mg/mL SDV 4mL 40 MG IVP ×2 (09:09→23:15)
[2019-06-03 11:56] LABS: Glucose Point of Care 178 mg/dL (70-110)
--- NOTE | 2019-06-03 14:33 | PC.NURSE ---
PT BROUGHT TO GI LAB FOR A THERAPEUTIC PHLEBOTOMY. IV STARTED IN LT WRIST WITH A 16G NEEDLE, AND 200GM BLOOD DRAINED. BLOOD THEN STOPPED DRAINING, AND IV DC'D. ANOTHER IV STARTED IN LT AC WITH A 16G NEEDLE, AND 300GM BLOOD DRAINED. THEN IV DC'D. PT ZBIGNIEW WELL.
[2019-06-03 17:13] LABS: Glucose Point of Care 320 mg/dL (70-110)
--- NOTE | 2019-06-03 18:10 | PM.PN ---
Subjective Subjective: Interval history: Corey reports he is breathing easier. We discussed his elevated hematocrit and he reports he used to have phlebotomy about 3 years ago fairly frequently. He does not recall the term polycythemia. Edema in his legs is improved. Medications: Reviewed: Yes Vitals/I&O/Wt Last Vital Signs Temp 98.4 F 06/03/19 15:32 Pulse 87 06/03/19 15:32 Resp 20 H 06/03/19 15:32 BP 138/80 06/03/19 15:32 Pulse Ox 86 L 06/03/19 15:32 06/03/19 06/03/19 06/03/19 06:59 14:59 22:59 Intake Total 1010 / 1640 600 / 600 Output Total 1350 / 3375 800 / 800 Balance -340 / -1735 -200 / -200 Weight last 48 hrs Weight 112.899 kg Physical Exam Narrative: EXAM NARRATIVE: General exam is no apparent distress Cardiovascular regular rate and rhythm with a 2/6 systolic murmur Lungs decreased breath sounds bilaterally but no wheezing Abdomen is soft with positive bowel sounds Extremities 1+ edema Data : 06/03/19 04:58 06/03/19 04:58 Micro: Microbiology 06/01/19 02:24 Gram Stain - Final Sputum - Expectorated Sputum Sputum Culture - Final A&P Assessment and plan (1) Acute respiratory failure with hypoxia: Overall improving Status: Acute Code(s): J96.01 - Acute respiratory failure with hypoxia (2) CHF (congestive heart failure): Ejection fraction normal. Appears to have dilated RV, cannot rule out aortic stenosis. Will require outpatient cardiac evaluation. Continue IV Lasix CTA was negative for pulmonary embolism Status: Acute Code(s): I50.9 - Heart failure, unspecified (3) COPD (chronic obstructive pulmonary disease): Continue pulmonary toilet, oxygen Discontinue IV steroids. Change to prednisone Continue Levaquin Status: Acute Code(s): J44.9 - Chronic obstructive pulmonary disease, unspecified (4) Bilateral lower leg cellulitis: Continue cefazolin, Levaquin Status: Acute Code(s): L03.116 - Cellulitis of left lower limb; L03.115 - Cellulitis of right lower limb (5) Type 2 diabetes mellitus: Status: Acute Code(s): E11.9 - Type 2 diabetes mellitus without complications (6) Hyperlipidemia: On statin Status: Acute Code(s): E78.5 - Hyperlipidemia, unspecified (7) Hypertension: Patient is unsure of the dosing of the medications Start metoprolol 25 twice daily, lisinopril 10 mg Await medication list from [facility] pharmacy Status: Acute Code(s): I10 - Essential (primary) hypertension (8) Diabetic foot ulcers: Podiatry following Status: Acute Code(s): E11.621 - Type 2 diabetes mellitus with foot ulcer; L97.509 - Non-pressure chronic ulcer of other part of unspecified foot with unspecified severity Additional A&P Information Hypertension, controlled on current meds Polycythemia, phlebotomy today. Mutation studies. Will need hematology follow-up. Lovenox for DVT prophylaxis Attestations Medical Necessity Statement*: Needs continued hospitalization for IV antibiotics, pulmonary toilet for COPD exacerbation. Coding Level of Care Code Acute Computer Repair Instructor for [facility] Fwd Diagnoses Acute respiratory failure with hypoxia J96.01 CHF (congestive heart failure) I50.9 COPD (chronic obstructive pulmonary disease) J44.9 Bilateral lower leg cellulitis L03.116; L03.115 Type 2 diabetes mellitus E11.9 Hyperlipidemia E78.5 Hypertension I10 Diabetic foot ulcers E11.621; L97.509
--- NOTE | 2019-06-03 18:45 | P.PN_ITS ---
Subjective Subjective: Interval history: Patient seen bedside this afternoon, he was eating dinner and upon entering the room. Leg dressings had slid down to his ankles. Serous drainage without saturation of the dressings. Patient reports improved edema to the legs. Denies any other pedal complaints at this time. Vitals/I&O/Wt Last Vital Signs Temp 98.4 F 06/03/19 15:32 Pulse 87 06/03/19 15:32 Resp 20 H 06/03/19 15:32 BP 138/80 06/03/19 15:32 Pulse Ox 86 L 06/03/19 15:32 06/03/19 06/03/19 06/03/19 06:59 14:59 22:59 Intake Total 1010 / 1640 600 / 600 240 / 840 Output Total 1350 / 3375 800 / 800 Balance -340 / -1735 -200 / -200 240 / 40 Weight last 48 hrs Weight 248 lb 14.4 oz Physical Exam Narrative: EXAM NARRATIVE: Patient is alert and oriented ?3 and in no acute distress. The following is a focused bilateral lower extremity exam. VASCULAR: Dorsalis pedis and posterior tibial arteries nonpalpable. Capillary refill time less than 3 seconds to the distal hallux bilaterally. Calf is supple and nontender proximally and distally. Decreased lower extremity and pedal hair growth noted bilaterally. Rubor to the bilateral legs and feet. Skin temperature is warm to cool from the tibial tuberosity down to the dorsal distal digits. +1 Pitting edema to the bilateral lower extremities. NEUROLOGICAL: Protective sensation intact 3/10 sites, tested with [place] [employer] monofilament to bilateral feet. DERMATOLOGICAL: There are 2 venous wounds to the left medial leg with irregular borders, fibro-granular base, serous drainage limited to breakdown of skin. There are for venous ulcerations at the right anterior and medial leg with fibro-granular base, epithelialized margins, serous drainage. Lower extremity integument is thin and atrophic has shiny appearance there is induration at the legs most prominent anteriorly. There are skin pigmentation changes consistent with chronic venous insufficiency bilateral legs. Rubor to bilateral legs and feet. No increased warmth bilateral legs. MUSCULOSKELETAL: Tenderness to palpation at bilateral legs. Pes planus foot type bilaterally. Ankle joint dorsiflexion to neutral bilaterally. First metatarsal phalangeal joint dorsiflexion of the 30 degrees in the sagittal plane. Widened externally rotated gait. Muscle strength is 5 out of 5 in all 3 cardinal planes to bilateral foot and ankle. Data : 06/03/19 04:58 06/03/19 04:58 Micro: Microbiology 06/01/19 02:24 Gram Stain - Final Sputum - Expectorated Sputum Sputum Culture - Final A&P Assessment and plan (1) Type 2 diabetes mellitus: Status: Acute Code(s): E11.9 - Type 2 diabetes mellitus without complications (2) Venous ulcer of leg: Status: Acute Qualifiers: Laterality: bilateral Qualified Code(s): I83.019 - Varicose veins of right lower extremity with ulcer of unspecified site; I83.029 - Varicose veins of left lower extremity with ulcer of unspecified site; L97.919 - Non-pressure chronic ulcer of unspecified part of right lower leg with unspecified severity; L97.929 - Non-pressure chronic ulcer of unspecified part of left lower leg with unspecified severity Code(s): I83.009 - Varicose veins of unspecified lower extremity with ulcer of unspecified site; L97.909 - Non-pressure chronic ulcer of unspecified part of unspecified lower leg with unspecified severity (3) Peripheral arterial disease: Status: Acute Code(s): I73.9 - Peripheral vascular disease, unspecified Bilateral lower extremity edema is significantly improving. He has rubor to bilateral legs without warmth or purulent drainage. Patient has significant peripheral arterial disease, KAYLEIGH is 0.32 at the left, 0.34 at the right. Gradient compression stockings for venous insufficiency are contraindicated due to underlying arterial disease. Venous wounds were removed of their fibrin and slough utilizing mechanical debridement with sterile 4 x 4 gauze. New dressings applied consisting of Melgisorb AG and Kerlix. I believe that the clinical presentation of his legs is less likely infectious and that the dusky red hue at his legs and feet is secondary to critical ischemia. Will continue local wound care while inpatient, f/u within 1 week in podiatry clinic after discharge. Recommend vascular consult for lower extremity PAD. Attestations Medical Necessity Statement*: Diabetes with venous ulceration to bilateral legs. Coding Level of Care Code Acute Avionics Systems Engineer for [facility] Fwd Diagnoses Type 2 diabetes mellitus E11.9 Venous ulcer of leg I83.019; I83.029; L97.919; L97.929 Laterality: bilateral Peripheral arterial disease I73.9
--- NOTE | 2019-06-03 19:00 | PC.NURSE ---
Introduction of staff and report received, aidet.
[2019-06-03 20:46] LABS: Glucose Point of Care 242 mg/dL (70-110)
[2019-06-03] MEDS: ALPRAZolam 0.25 mg Tablet PO (22:13)
[2019-06-03] MEDS: enoxaparin 40 mg/0.4 mL Syringe SUBCUT (22:18)
[2019-06-04] VITALS (11 sets, daily range): BP systolic 132–168; BP diastolic 77–88; PULSE 70–88; RESP 12–20; TEMP 36.4–36.5; O2SAT 72–92
[2019-06-04] MEDS: ipratropium-albuterol 3 mL Neb INHALATION ×3 (02:07→16:07)
[2019-06-04] MEDS: levoFLOXacin 500 mg Tablet PO (06:11)
[2019-06-04] MEDS: ceFAZolin 1,000 MG in sodium chloride 0.9% (plus) 50 ML 100 MG IV (06:12)
[2019-06-04 07:05] LABS: Basophils % 0.1 %; Eosinophils % 0.4 %; Hematocrit 58.7 % (42.0-52.0); Hemoglobin 19.3 g/dL (11.7-16.6); Lymphocytes # 1.5 10^3/uL (0.8-4.8); Lymphocytes % 14.6 %; Mean Corpuscular HGB Conc 32.9 g/dL (30.0-36.0); Mean Corpuscular Hemoglobin 30.9 pg (28.0-34.0); Mean Corpuscular Volume 93.9 fL (80-94); Mean Platelet Volume 9.6 fL (7.4-10.4); Monocytes % 9.1 %; Neutrophils # 7.9 10^3/uL (1.8-7.7); Neutrophils % 74.8 %; Nucleated Red Blood Cells % 0 %; Platelet Count 185 10^3/cmm (130-400); Red Blood Count 6.25 10^6/uL (4.1-5.3); Red Cell Distribution Width 11.7 % (12.1-15.1); White Blood Count 10.6 10^3/uL (4.0-10.0)
[2019-06-04 07:12] LABS: Glucose Point of Care 179 mg/dL (70-110)
[2019-06-04 07:22] LABS: Anion Gap 17.3 (5-19); Blood Urea Nitrogen 28 mg/dL (8-23); Calcium 8.9 mg/dL (8.5-10.5); Carbon Dioxide 39 mmol/L (22-29); Chloride 81 mmol/L (98-107); Glomerular Filtration Rate 68.1 mL/min (90-130); Glucose 203 mg/dL (65-115); Osmolality Calculated 281 mOsm/kg (285-295); Potassium 3.3 mmol/L (3.5-5.1); Sodium 134 mmol/L (136-145)
[2019-06-04] MEDS: budesonide 0.5 mg/2 mL Neb INHALATION (07:59)
[2019-06-04] MEDS: amlodipine 10 mg Tablet PO (08:48)
[2019-06-04] MEDS: aspirin 81 mg EC Tablet PO (08:49)
[2019-06-04] MEDS: carvedilol 12.5 mg Tablet PO (08:49)
[2019-06-04] MEDS: predniSONE 20 mg Tablet 40 MG PO (08:49)
[2019-06-04] MEDS: lisinopril 20 mg Tablet 40 MG PO (08:49)
[2019-06-04] MEDS: hyDRALAzine 50 mg Tablet PO ×2 (08:49→14:45)
[2019-06-04] MEDS: pantoprazole DR 40 mg Tablet PO (08:49)
[2019-06-04] MEDS: atorvastatin 40 mg Tablet PO (08:49)
[2019-06-04] MEDS: FUROsemide 10 mg/mL SDV 4mL 40 MG IVP (09:21)
--- NOTE | 2019-06-04 09:30 | PC.SOCIAL ---
IMM Updated Page 2 of IMM updated and given to patient. Initialed, dated, and timed and placed back in chart.
[2019-06-04 12:24] LABS: Glucose Point of Care 252 mg/dL (70-110)
[2019-06-04 12:33] LABS: Magnesium 1.7 mg/dL (1.7-2.3)
[2019-06-04] MEDS: ceFAZolin 1,000 MG in sodium chloride 0.9% (plus) 50 ML 150 MG IV (12:50)
--- NOTE | 2019-06-04 13:09 | P.DS_ITS ---
Discharge Providers Date of Admission: 05/30/19 19:15 Date of Discharge: June 04, 2019 Attending Provider at Admission: Mario Park MD Attending Provider at Discharge: Mark Trujillo MD Diagnoses at Discharge Discharge Diagnosis (1) Type 2 diabetes mellitus: Status: Acute Problem details: Unchanged (2) Venous ulcer of leg: Status: Acute Problem details: Concern of peripheral vascular disease as well. Following up with podiatry Qualifiers: Laterality: bilateral Qualified Code(s): I83.019 - Varicose veins of right lower extremity with ulcer of unspecified site; I83.029 - Varicose veins of left lower extremity with ulcer of unspecified site; L97.919 - Non-pressure chronic ulcer of unspecified part of right lower leg with unspecified severity; L97.929 - Non-pressure chronic ulcer of unspecified part of left lower leg with unspecified severity (3) Peripheral arterial disease: Status: Acute Problem details: Follow-up with cardiology Reason for Visit Reason for Visit: Reason For Visit: sob leg pain/swelling/puss both Hospital Course Hospital Course: Corey is a 59-year-old white male who presented to the emergency department with lower extremity swelling, sores, and shortness of breath. He had been coughing and wheezing as well. There was concern on admission for lower extremity cellulitis. COPD exacerbation was identified, and diastolic heart failure. He was placed on vancomycin and Zosyn.Secondary to some wound care issuesPodiatry was consulted. Diuresis was initiated. Echocardiogram was performed which demonstrated poor quality, RV dilation, possible aortic stenosis. CTA demonstrated no pulmonary embolisms, pleural effusions right greater than left consistent with diastolic heart failure. ABIs of the lower extremity demonstrated arterial disease. While in the hospital he diuresed nicely, and shortness of breath lessened. Creatinine improved. Secondary to polycythemia phlebotomy of 500 mL of blood occurred. Mutation studies were sent. At the end of his hospital stay he was on 4 L resting, and required 6 L with exertion. He requested to go home. He reported he would follow-up promptly. At this point he does not need any further antibiotics for his lower extremities.. He will finish 5 more days of Levaquin for his pulmonary condition. Cardiology will see him in follow-up in regards to possible aortic stenosis, RV dilation. While in the hospital he had a very short run of nonsustained ventricular tachycardia, 4 beats, for which he is on carvedilol as well as magnesium. He will also follow-up with podiatry, hematology, and his primary care provider. He will need a CBC and BMP in 3 days. Multiple medication changes regarding hypertension were also made during his hospital stay. Physical Exam Narrative: EXAM NARRATIVE: General exam no apparent distress Cardiovascular regular rate and rhythm Lungs clear but with diminished breath sounds bilaterally Abdomen is soft with positive bowel sounds Extremities 1+ edema Discharge Data Data Completed and Pending: Completed Studies During Hospitalization Category Date Time Status CT angio chest PE protcl [id number] Urge nt Cat Scan 05/30/19 20:44 Completed XR chest 1V [place]almis ble 37680 Stat Exams 05/30/19 16:54 Completed XR tibia fibula L T 2V 09695 Urgent Exams 05/30/19 20:40 Completed XR tibia fibula R T 2V 52345 Urgent Exams 05/30/19 20:40 Completed CV ankle brachial index 51685 Urgen t Ultrasound 05/31/19 20:40 [place] [address] Rout ine Ultrasound 05/31/19 15:14 Completed CV echo limited 9 3308 Urgent Ultrasound 05/31/19 22:12 [place] [address] Urgent Ultrasound 05/31/19 20:40 Completed US abdomen limite d 08094 Routine Ultrasound 06/02/19 08:26 Completed US renal BI with bladder Routine Ultrasound 06/02/19 08:26 Completed Pending at discharge Category Date Time Status Blood Culture Rou anya Lab 05/30/19 23:15 Results Blood Culture Sta t Lab 05/30/19 17:48 Results Erythropoietin Ro utine Lab 06/03/19 04:58 Received JAK2 [id number] Cascadi ng Reflex Routine Lab 06/03/19 04:58 Received Labs from last 24 hours 06/04/19 06/04/19 06/04/19 11:26 07:02 06:30 WBC RBC Hgb Hct MCV MCH MCHC RDW Plt Count MPV Neut % (Auto) Lymph % (Auto) Story % (Auto) Eos % (Auto) Baso % (Auto) Neut # (Auto) Lymph # (Auto) Story # (Auto) Eos # (Auto) Baso # (Auto) Nucleated RBC % (a uto) Nucleated RBCs # Sodium 134 L Potassium 3.3 L Chloride 81 L Carbon Dioxide 39 H Anion Gap 17.3 BUN 28 H Creatinine 1.1 GFR Calculation 68.1 L Glucose 203 H POC Glucose 252 179 Calculated Osmolal ity 281 L Calcium 8.9 Magnesium 1.7 06/04/19 06/03/19 06/03/19 06:30 20:38 17:09 WBC 10.6 H RBC 6.25 H Hgb 19.3 H Hct 58.7 H MCV 93.9 MCH 30.9 MCHC 32.9 RDW 11.7 L Plt Count 185 MPV 9.6 Neut % (Auto) 74.8 Lymph % (Auto) 14.6 Story % (Auto) 9.1 Eos % (Auto) 0.4 Baso % (Auto) 0.1 Neut # (Auto) 7.9 H Lymph # (Auto) 1.5 Story # (Auto) 1.0 H Eos # (Auto) 0.0 Baso # (Auto) 0.0 Nucleated RBC % (a uto) 0 Nucleated RBCs # 0.0 Sodium Potassium Chloride Carbon Dioxide Anion Gap BUN Creatinine GFR Calculation Glucose POC Glucose 242 320 Calculated Osmolal ity Calcium Magnesium Vitals: Last Vital Signs Temp 97.6 F 06/04/19 11:36 Pulse 78 06/04/19 11:36 Resp 18 06/04/19 11:36 BP 132/77 06/04/19 11:36 Pulse Ox 85 L 06/04/19 12:41 Discharge Plan Discharge Patient Disposition: Home, Self-Care Condition: Stable Prescriptions: New atorvastatin 40 mg Tablet 40 mg PO DAILY Qty: 30 RF: 0 pantoprazole 40 mg Tablet,Delayed Release (Dr/Ec) 40 mg PO DAILY Qty: 30 RF: 0 amlodipine 10 mg Tablet 10 mg PO DAILY Qty: 30 RF: 0 ipratropium-albuterol 0.5 mg-3 mg(2.5 mg base)/3 mL Solution For Nebulization 3 ml inhalation Q6H.RESPIRATORY Qty: 360 RF: 0 hydralazine 50 mg Tablet 50 mg PO TID Qty: 90 RF: 0 carvedilol 12.5 mg Tablet 12.5 mg PO BID Qty: 60 RF: 0 levofloxacin 500 mg Tablet 500 mg PO DAILY@0600 Qty: 5 RF: 0 prednisone 20 mg Tablet 40 mg PO DAILY Qty: 6 RF: 0 magnesium oxide 400 mg (241.3 mg magnesium) Tablet 400 mg PO BID Qty: 60 RF: 0 potassium chloride 20 mEq tablet extended release 20 meq PO DAILY Qty: 30 RF: 0 lisinopril 20 mg Tablet 40 mg PO DAILY Qty: 30 RF: 0 budesonide 0.5 mg/2 mL Suspension For Nebulization 0.5 mg inhalation BID Qty: 120 RF: 0 aspirin 81 mg Tablet,Delayed Release (Dr/Ec) 81 mg PO DAILY Qty: 30 RF: 0 furosemide [Lasix] 40 mg tablet 60 mg PO QAM Qty: 45 RF: 0 Continued metformin 500 mg Tablet 500 mg PO BIDAC RF: 0 tizanidine 4 mg Tablet 4 mg PO TID RF: 0 Severn-3 1 g PO BID RF: 0 Discontinued Zithromax Z-Ray 250 mg Tablet 250 mg PO DAILY RF: 0 doxycycline hyclate 100 mg Tablet 100 mg PO BID RF: 0 hydrochlorothiazide 25 mg Tablet 25 mg PO DAILY RF: 0 metoprolol tartrate 50 mg Tablet 75 mg PO BID RF: 0 lisinopril 40 mg Tablet 40 mg PO BID RF: 0 Discharge Orders: Discharge Order (Routine); Ordered 06/04/19 Ordered By: Mark Trujillo Other Ambulatory Orders: DME: Nebulizer (Order) Location: None Selected Ordered By: Mark Trujillo DME: Oxygen (Order) Location: None Selected Ordered By: Mark Trujillo Referrals: [facility] ([facility]) [Outside] Kaiden Fan DPM [Physician] - 4-7 days Discharge Diet: Cardiac and Diabetic Discharge Activity: Increase activity as tolerated Activity Restrictions/Additional Instructions: Please arrange referral to cardiology clinic, diagnosis diastolic CHF, possible aortic stenosis in 2 weeks. Please arrange to see Dr. Martinez to evaluate peripheral vascular disease as well at this follow-up Please arrange primary care provider follow-up in 3 to 5 days with CBC and BMP Follow-up with hematology clinic, polycythemia, 1 to 2 weeks. Use oxygen as prescribed. No smoking. Please arrange to continue wound care per Dr. Fan, with current wound care orders at home. Discharge Attestations Time Spent in Discharge Care*: greater than 30 min Quality Metrics Clinical Quality Measures During this hospital stay, did patient experience: None Coding Level of Care Code Acute Air Deodorizer Servicer for [facility] Fwd Diagnoses Type 2 diabetes mellitus E11.9 Venous ulcer of leg I83.019; I83.029; L97.919; L97.929 Laterality: bilateral Peripheral arterial disease I73.9
[2019-06-04] MEDS: magnesium oxide 400 mg tablet PO (14:45)
[2019-06-05 14:58] LABS: Erythropoietin 3.9 mIU/mL (2.6-18.5)
[2019-06-09 09:50] LABS: CALR Exon 9 Mutation NOT DETECTED (NOT DETECTED); CSF3R Exon 14/17 Mutation NOT DETECTED (NOT DETECTED); JAK2 Exon 12 Mutation NOT DETECTED (NOT DETECTED); JAK2 V617 Block Specimen ID NG; JAK2 V617 Clinical Indication NG; JAK2 V617 Mutation NOT DETECTED (NOT DETECTED); JAK2 V617 Specimen Source NG; MPL Exon 12 Mutation NOT DETECTED (NOT DETECTED)
== END 2019-06-04 16:16 | disposition home or self-care (01) | DRG 189 ==
LOC: ER 19:58 → MEDSURG 20:49
PROVIDERS: Family Medicine; Student in an Organized Health Care Education/Training Program; Admitting Provider Family Medicine; Emergency Provider Emergency Medicine; Visit Provider Internal Medicine
DX: J96.01 Acute respiratory failure with hypoxia (principal); J18.9 Pneumonia, unspecified organism; J44.1 Chronic obstructive pulmonary disease with (acute) exacerbation; L03.115 Cellulitis of right lower limb; L03.116 Cellulitis of left lower limb; I50.30 Unspecified diastolic (congestive) heart failure; E11.51 Type 2 diabetes mellitus with diabetic peripheral angiopathy without gangrene; I11.0 Hypertensive heart disease with heart failure; E78.5 Hyperlipidemia, unspecified; E11.621 Type 2 diabetes mellitus with foot ulcer; L97.509 Non-pressure chronic ulcer of other part of unspecified foot with unspecified severity; I83.029 Varicose veins of left lower extremity with ulcer of unspecified site; I83.019 Varicose veins of right lower extremity with ulcer of unspecified site; Z79.84 Long term (current) use of oral hypoglycemic drugs; Z79.82 Long term (current) use of aspirin; F41.9 Anxiety disorder, unspecified; F17.210 Nicotine dependence, cigarettes, uncomplicated
CPT/HCPCS: 12345; 36415; 36416; 36600; 71045; 71275; 73590; 76705; 76770; 76857; 80048; 80051; 80053; 80202; 81001; 82668; 82810; 82962; 83036; 83735; 83880; 83986; 84100; 84145; 84443; 84484; 85025; 85610; 85651; 86140; 87040; 87070; 87205; 87641; 87804; 93005; 93308; 93922; 93925; 93970; 94640; 94660; 96372; 96375; 97161; 99195; 99283; J0360; J0456; J0690; J0696; J1650; J1815; J1940; J2001; J2270; J2543; J2920; J3370; J3490; J7050; J7512; J7626; Q9967

== ENCOUNTER 2019-06-13 09:38 | Outpatient (RCR) | payer MEDICARE, SELFPAY | END 2019-06-22 23:59 | disposition home or self-care (01) | LOC: WOUND 09:38 | PROVIDERS: Visit Provider Nurse Practitioner Family | DX: I96 Gangrene, not elsewhere classified (principal); L97.822 Non-pressure chronic ulcer of other part of left lower leg with fat layer exposed; L97.812 Non-pressure chronic ulcer of other part of right lower leg with fat layer exposed | CPT/HCPCS: 99205; 99214 ==

== ENCOUNTER 2019-06-16 11:12 | Inpatient (IN) | payer MEDICARE, SELFPAY ==
[2019-06-16] VITALS (41 sets, daily range): BP systolic 116–179; BP diastolic 68–119; PULSE 67–89; RESP 9–32; TEMP 36.5–36.8; O2SAT 76–97; BMI 35.1
--- NOTE | 2019-06-16 11:29 | ED_ITS ---
Entered by Joan Causey, acting as scribe for Ermelinda Emerson MD HPI - General Adult General: Chief complaint: Shortness of Breath/Dyspnea Stated complaint: SOB Time Seen by Provider: 06/16/19 11:27 History of Present Illness: HPI narrative: 59 yo male presents with shortness of breath and weakness. Pt states that he can't get around due to the shortness of breath and weakness. Pt states that he is normally on 4 liters of o2 at all times. Pt states that he is sweating. Pt denies having a fever. Pt called his home health agency and they recommended him be seen today. complaint: shortness of breath. Onset (ago): day(s) (2) Severity: moderate Relieving factors: none Exacerbating factors: movement Associated symptoms: Reports cough, dyspnea and short of breath; Deny chest pain, headache(s), nausea, rash or vomiting Review of Systems Const: Denies: fever, chills, body aches or change in appetite Eyes: Denies: blurry vision or eye discomfort ENMT: Denies: throat pain or dental pain Card: Denies: chest pain Resp: Reports: shortness of breath, non-productive cough and wheezing GI: Denies: abdominal pain, nausea, vomiting or diarrhea : Denies: painful urination Musc: Denies: neck pain or back pain Skin/Breast: Denies: rash Neuro: Denies: headache Psych: Denies: depression Ermias/Lymph: Denies: easy bruising All/Imm: Denies: hives PFSH ED PFSH: Medical History COPD (chronic obstructive pulmonary disease) Hyperlipidemia Hypertension Type 2 diabetes mellitus Unchanged Surgical History History of ventriculoperitoneal shunting Social History Smoking and tobacco status: former smoker Alcohol intake: never Physical Exam Const: COMMON NORMALS: no apparent distress, oriented x3 and healthy appearing HENMT: COMMON NORMALS: normocephalic and head/scalp atraumatic HEAD & SCALP: normocephalic and atraumatic Eye: COMMON NORMALS: PERRL and EOMs intact bilaterally PUPIL: Yes PERRL Neck/C-Spine: COMMON NORMALS: full ROM and supple Chest: COMMONS NORMALS: inspection of chest normal and palpation of chest normal Resp: EFFORT & INSPECTION: Yes respiratory distress Cardio: COMMON NORMALS: regular rate, regular rhythm and no murmurs RATE: regular rate RHYTHM: regular rhythm GI: COMMON NORMALS: normal to inspection, nondistended, normoactive bowel sounds, soft to palpation, non-tender and no masses PALPATION: Yes soft Extremity: COMMON NORMALS: normal to inspection and full ROM Neuro: COMMON NORMALS: oriented x3, moves all extremities and no focal motor deficits Psych: COMMON NORMALS: mental status grossly normal, thought process normal and cooperative THOUGHT PROCESS: normal thought process Skin: COMMON NORMALS: no rashes or lesions noted and no wounds GENERAL SKIN EXAM: no rashes or lesions noted Course Vital Signs: Vital signs: Vital Signs Temperature 97.7 F 06/16/19 11:27 Pulse Rate 75 06/16/19 13:40 Respiratory Rate 18 06/16/19 13:40 Blood Pressure 159/68 06/16/19 13:40 Pulse Oximetry 97 06/16/19 13:40 MDM - General Adult MDM Narrative: Medical decision making narrative: Corey presents here with dyspnea. Patient is also hypoxic with oxygen saturation in the 70s and is requiring 8 L of oxygen here. Patient had CT last time it showed no signs of pulmonary bruising. Patient's x-ray here shows improving pneumonia but does have pulmonary fibrosis. I spoke to hospitalist and will admit. Lab Data: Labs: Lab Results 06/16/19 06/16/19 06/16/19 Range/Units 11:46 11:46 11:46 WBC 11.9 H (4.0-10.0) 10^3/ uL RBC 5.38 H (4.1-5.3) 10^6/u L Hgb 16.5 (11.7-16.6) g/dL Hct 52.8 H (42.0-52.0) % MCV 98.1 H (80-94) fL MCH 30.7 (28.0-34.0) pg MCHC 31.3 (30.0-36.0) g/dL RDW 12.2 (12.1-15.1) % Plt Count 125 L (130-400) 10^3/c mm MPV 10.4 (7.4-10.4) fL Neut % (Auto) 84.6 % Lymph % (Auto) 5.6 % [place] % (Auto) 8.0 % Eos % (Auto) 0.8 % Baso % (Auto) 0.3 % Neut # (Auto) 10.1 H (1.8-7.7) 10^3/u L Lymph # (Auto) 0.7 L (0.8-4.8) 10^3/u L [place] # (Auto) 1.0 H (0.2-0.9) 10^3/u L Eos # (Auto) 0.1 (0.0-0.8) 10^3/u L Baso # (Auto) 0.0 (0.0-0.1) 10^3/u L Nucleated RBC % (a uto) 0 % Nucleated RBCs # 0.0 /100WBC PT 12.30 (10.5-13.3) SECO NDS INR 0.89 (0.8-1.2) Specimen Type Sample Site ABG pH (7.35-7.45) ABG pCO2 (35-45) mmHg ABG pO2 (80.0-100.0) mmH g ABG HCO3 (22-26) mmol/L ABG Base Excess (-2.0-2.0) mmol/ L Melchor Test Hematocrit (42-52) % Hgb O2 Saturation (95-100) % Carboxyhemoglobin (0.4-20.1) %THgb Methemoglobin (0.4-1.5) % Total Hemoglobin (14-18) g/dL O2 Delivery Device O2 Liters/Min % Electrical Tester Battery ID Sodium 130 L (136-145) mmol/L Potassium 6.0 H (3.5-5.1) mmol/L Chloride 89 L (98-107) mmol/L Carbon Dioxide 32 H (22-29) mmol/L Anion Gap 15.0 (5-19) BUN 34 H (8-23) mg/dL Creatinine 1.4 H (0.7-1.2) mg/dL GFR Calculation 51.5 L (90-130) mL/min Glucose 372 H (65-115) mg/dL Calcium 9.2 (8.5-10.5) mg/dL Total Bilirubin 0.7 (0.15-1.2) mg/dL AST 41 H (0-40) U/L ALT 52 H (0-41) U/L Alkaline Phosphata se 73 (40-130) IU/L NT-Pro-B Natriuret Pep 4094 H (0-125) pg/mL Total Protein 6.7 (6.6-8.7) g/dL Albumin 2.8 L (3.5-5.2) g/dL Globulin 3.9 (1.3-4.6) g/dL Influenza Type A A g (Negative) POC Influenza B Ag (Negative) 06/16/19 06/16/19 Range/Units 12:01 12:02 WBC (4.0-10.0) 10^3/ uL RBC (4.1-5.3) 10^6/u L Hgb (11.7-16.6) g/dL Hct (42.0-52.0) % MCV (80-94) fL MCH (28.0-34.0) pg MCHC (30.0-36.0) g/dL RDW (12.1-15.1) % Plt Count (130-400) 10^3/c mm MPV (7.4-10.4) fL Neut % (Auto) % Lymph % (Auto) % [place] % (Auto) % Eos % (Auto) % Baso % (Auto) % Neut # (Auto) (1.8-7.7) 10^3/u L Lymph # (Auto) (0.8-4.8) 10^3/u L [place] # (Auto) (0.2-0.9) 10^3/u L Eos # (Auto) (0.0-0.8) 10^3/u L Baso # (Auto) (0.0-0.1) 10^3/u L Nucleated RBC % (a uto) % Nucleated RBCs # /100WBC PT (10.5-13.3) SECO NDS INR (0.8-1.2) Specimen Type Arterial Sample Site Radial, right ABG pH 7.38 (7.35-7.45) ABG pCO2 59.5 H (35-45) mmHg ABG pO2 59.8 L (80.0-100.0) mmH g ABG HCO3 35.5 H (22-26) mmol/L ABG Base Excess 7.7 H (-2.0-2.0) mmol/ L Melchor Test Pos Hematocrit 52.4 H (42-52) % Hgb O2 Saturation 89.7 L (95-100) % Carboxyhemoglobin 1.7 (0.4-20.1) %THgb Methemoglobin 0.3 L (0.4-1.5) % Total Hemoglobin 17.1 (14-18) g/dL O2 Delivery Device Nc O2 Liters/Min 8.0 % Electrical Tester Battery ID [id number] Sodium (136-145) mmol/L Potassium (3.5-5.1) mmol/L Chloride (98-107) mmol/L Carbon Dioxide (22-29) mmol/L Anion Gap (5-19) BUN (8-23) mg/dL Creatinine (0.7-1.2) mg/dL GFR Calculation (90-130) mL/min Glucose (65-115) mg/dL Calcium (8.5-10.5) mg/dL Total Bilirubin (0.15-1.2) mg/dL AST (0-40) U/L ALT (0-41) U/L Alkaline Phosphata se (40-130) IU/L NT-Pro-B Natriuret Pep (0-125) pg/mL Total Protein (6.6-8.7) g/dL Albumin (3.5-5.2) g/dL Globulin (1.3-4.6) g/dL Influenza Type A A g Negative (Negative) POC Influenza B Ag Negative (Negative) Imaging Data^: CXR: Attestation: I personally reviewed and interpreted this imaging study as follows: Radiologist's impression: Ordering Provider/Ordering MD: Ermelinda Emerson MD Date of Service: 06/16/19 Procedure(s): XR chest 1V portable [id number] Accession Number(s): [id number] Report Number: [id number] WS: [id number] XR chest 1V portable [id number] REASON FOR EXAM: sob FINDINGS: Borderline cardiomegaly is noted. A shunt tube is seen extends to the right side of the chest down toward the abdomen. There is increased markings in the basilar portions of both lower lungs. The infiltrate right lung base is clear there is residual fibrosis seen. XR/XR chest 1V portable [id number] IMPRESSION: Cardiomegaly Resolution of infiltrates in the right lower lung Pulmonary fibrosis the lower lungs. EKG Data^: EKG 1: Attestation: I personally reviewed and interpreted this EKG as follows: EKG interpretation date: 06/16/19 EKG interpretation time: 12:04 Interpretation: nsr hr [address] or t wave abnormalities qrs 116 qtc 407 Computer generated interpretation: Chest X-Ray 06/16/19 11:35 IMPRESSION: Cardiomegaly Resolution of infiltrates in the right lower lung Pulmonary fibrosis the lower lungs. Discharge Plan Discharge Patient Disposition: Admitted As Inpatient Admit Provider: Maria Isabel Rebolledo Clinical Impression: Hypoxia, Dyspnea Condition: Stable Discharge Date/Time: 06/16/19 13:55 Coding Level of Care Code ED Public Health Nurse for Chg Fwd Exam Comprehensive The documentation recorded by the Padilla beltrán Kialy, accurately reflects the service I personally performed and the decisions made by Ki reyes Korby, MD
--- NOTE | 2019-06-16 11:35 | XR_ITS ---
WS: [id number] XR chest 1V portable [id number] REASON FOR EXAM: sob FINDINGS: Borderline cardiomegaly is noted. A shunt tube is seen extends to the right side of the chest down toward the abdomen. There is increased markings in the basilar portions of both lower lungs. The infiltrate right lung ba se is clear there is residual fibrosis seen. XR/XR chest 1V portable [id number] IMPRESSION: Cardiomegaly Resolution of infiltrates in the right lower lung Pulmonary fibrosis the lower lungs.
--- NOTE | 2019-06-16 11:35 | ECG_ITS ---
Measurements Intervals [place] Rate: 77 P: 44 PA: 218 QRS: 24 QRSD: 116 T: 52 QT: 375 QTc: 426 SINUS RHYTHM WITH FIRST DEGREE AV BLOCK INDETERMINATE AXIS RIGHT BUNDLE BRANCH BLOCK [120+ ms QRS DURATION, UPRIGHT V1, 40+ ms S IN I/a I/aVL/V4/V5/V6] SEPTAL MYOCARDIAL INFARCTION , PROBABLY OLD [40+ ms Q WAVE IN V1/V2] Compared to ECG 05/30/2019 23:01:24 First degree AV block now present Indeterminate axis now present Left-axis deviation no longer present Myocardial infarct finding still present Electronically Signed On 06-16-2019 13:03:35 DIRECTOR SERVICE by Mary Ross M.D. [email or web address]
[2019-06-16 11:52] LABS: Basophils % 0.3 %; Eosinophils # 0.1 10^3/uL (0.0-0.8); Eosinophils % 0.8 %; Hematocrit 52.8 % (42.0-52.0); Hemoglobin 16.5 g/dL (11.7-16.6); Lymphocytes # 0.7 10^3/uL (0.8-4.8); Lymphocytes % 5.6 %; Mean Corpuscular HGB Conc 31.3 g/dL (30.0-36.0); Mean Corpuscular Hemoglobin 30.7 pg (28.0-34.0); Mean Corpuscular Volume 98.1 fL (80-94); Mean Platelet Volume 10.4 fL (7.4-10.4); Neutrophils # 10.1 10^3/uL (1.8-7.7); Neutrophils % 84.6 %; Nucleated Red Blood Cells % 0 %; Platelet Count 125 10^3/cmm (130-400); Red Blood Count 5.38 10^6/uL (4.1-5.3); Red Cell Distribution Width 12.2 % (12.1-15.1); White Blood Count 11.9 10^3/uL (4.0-10.0)
[2019-06-16] MEDS: ipratropium-albuterol 3 mL Neb INHALATION ×3 (11:58→23:31)
[2019-06-16 12:05] LABS: INR 0.89 (0.8-1.2)
[2019-06-16 12:15] LABS: ABG PCO2 59.5 mmHg (35-45); ABG PH Result 7.38 (7.35-7.45); Arterial Blood Gas Hematocrit 52.4 % (42-52); Base Excess ABG 7.7 mmol/L (-2.0-2.0); Blood Gas Allen Test Pos; Blood Gas Sample Site Radial, right; Blood Gas Sample Type Arterial; Carboxyhemoglobin 1.7 %THgb (0.4-20.1); HCO3 ABG 35.5 mmol/L (22-26); HGB O2 Sat 89.7 % (95-100); Methemoglobin 0.3 % (0.4-1.5); Oxygen Device NC; PO2 ABG 59.8 mmHg (80.0-100.0); Total Hemoglobin 17.1 g/dL (14-18)
[2019-06-16 12:24] LABS: Alanine Aminotransferase 52 U/L (0-41); Albumin Level 2.8 g/dL (3.5-5.2); Alkaline Phosphatase 73 IU/L (40-130); Aspartate Amino Transferase 41 U/L (0-40); Blood Urea Nitrogen 34 mg/dL (8-23); Calcium 9.2 mg/dL (8.5-10.5); Carbon Dioxide 32 mmol/L (22-29); Chloride 89 mmol/L (98-107); Globulin 3.9 g/dL (1.3-4.6); Glomerular Filtration Rate 51.5 mL/min (90-130); Glucose 372 mg/dL (65-115); NT Pro B Type Natriuretic Pept 4094 pg/mL (0-125); Sodium 130 mmol/L (136-145); Total Bilirubin 0.7 mg/dL (0.15-1.2); Total Protein 6.7 g/dL (6.6-8.7)
[2019-06-16] MEDS: insulin regular-human 100 units/1 mL 6 UNIT IVP (12:40)
[2019-06-16 12:42] LABS: Influenza A by IFA Negative (Negative)
[2019-06-16 12:43] LABS: Influenza B by IFA Negative (Negative)
--- NOTE | 2019-06-16 13:15 | PC.NURSE ---
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 Resolved now
--- NOTE | 2019-06-16 13:16 | CTR_ITS ---
PROCEDURE INFORMATION: Exam: CT Chest Without Contrast Exam date and time: 06/16/2019 1:28 PM Age: 59 years old Clinical indication: Shortness of breath; Prior surgery; Surgery date: 6+ months; Surgery type: Shunt; Additional info: Hypoxia, increased oxygen requirement TECHNIQUE: Imaging protocol: Computed tomography of the chest without contrast. Total DLP: 1021.77 mGy-cm Radiation optimization: All CT scans at this facility use at least one of these dose optimization techniques: automated exposure control; mA and/or kV adjustment per patient size (includes targeted exams where dose is matched to clinical indication); or iterative reconstruction. COMPARISON: CT angio chest PE protcl [id number] 05/30/2019 10:03 PM FINDINGS: Lungs: There are pulmonary parenchymal calcifications consistent with remote granulomatous organism exposure. Pleural space: There are small bilateral pleural effusions with underlying compressive atelectasis or infiltrate. Heart: Multivessel atherosclerotic disease which involves the coronary arteries. Aorta: There are calcifications in the aortic and mitral valves. Lymph nodes: There are calcified mediastinal and perihilar lymph nodes consistent with prior granulomatous exposure. Kidneys and ureters: Partially visualized left renal cyst. Bones/joints: There are multiple chronic/healed rib fractures. There are degenerative changes in the visualized spine. Soft tissues: Unremarkable. CT/CT chest wo con [id number] IMPRESSION: 1. There are bilateral pleural effusions with underlying compressive atelectasis or infiltrate. 2. Multivessel atherosclerotic disease which involves the coronary arteries. Radiation Dose CTDIVOL = (mGy): DLP = 1021.77 (mGy-cm)
--- NOTE | 2019-06-16 14:39 | PC.NURSE ---
Physician Kesha notified d/t patient status. Patient oxygen sats 81-83% on 2L nasal cannula on arrival from ER. Crackles heard on lung assessment. Patient states he feels short of breath and that it is hard to breathe. RT notified. Oxygen taken up to 6L nasal cannula. BNP elevated 4000+. This nurse called to obtain order for Lasix. Physician ordered to place patient on bipap and she will come to assess patient when she can. Bipap applied.
--- NOTE | 2019-06-16 15:48 | PM.HP ---
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 Patient was recently discharged from our facility on 06/04 following a several day stay during which time he was treated for acute COPD exacerbation, community-acquired pneumonia, bilateral lower extremity cellulitis. He was discharged home with oral steroids and Levaquin to complete his treatment course and was referred to Dr. Fan to continue care for his venous ulcerations in his bilateral lower extremities. Home health was arranged to continue wound care at home. He states that since he has been home he has gradually been more and more short of breath despite using oxygen. He qualified for 4 L at rest and 6 L with exertion. Earlier today he increased his oxygen while at rest to 6 L with continued hypoxia. He contacted his home health nurse who recommended following up in the ER. He is unsure what medications he is taking and does not know if he has been on diuretics or not when questioned about this. It is unclear whether or not he has been compliant with his medications since discharge. Work-up in the ER indicates leukocytosis with a white count of 11.9, BUN of 34, creatinine of 1.4, potassium of 6.0, BNP greater than 4000, blood sugar of 372, ABG consistent with hypercapnia and hypoxia, mild transaminitis with an AST of 41 and ALT of 52, chest x-ray reported as resolution of previously noted infiltrates. I have ordered a CT chest for further evaluation. He received IV steroids and nebulizer treatments in the ER. Required as much as 9 L to maintain his saturation above 90%. I have requested that he be placed on BiPAP upon his arrival to ICU due to continued shortness of breath. He desaturates fairly easily as I requested BiPAP be removed for my assessment and even on about 8 L nasal cannula he desaturates fairly quickly to about 88%. He has a clean dressing in place over his right leg which was changed yesterday, it is changed every 3 days. He received 6 units of insulin due to noted hyper glycemia and hyperkalemia. Patient's med list includes supplemental potassium and Lasix 60 mg once daily. Patient states that he does not weigh himself at home and he has not changed how much he eats or drinks. He is being admitted for further diuresis, continued monitoring of his respiratory status. Due to low threshold for decompensation particularly in light of his recent admission he will be admitted to ICU. Review of Systems Const: Reports: diaphoresis; Denies: fever, chills or fatigue Eyes: Denies: change in vision ENMT: Denies: painful swallowing Card: Reports: edema, swelling of feet/ankles, shortness of breath on exertion and shortness of breath when lying down; Denies: chest pain, lightheadedness, syncope or pre-syncope Resp: Reports: non-productive cough; Denies: shortness of breath or wheezing GI: Reports: bloating; Denies: abdominal pain, nausea, vomiting, vomiting blood or blood in stool : Denies: painful urination, urinary frequency or blood in urine Musc: Denies: back pain Skin/Breast: Reports: other (previously noted RLE venous ulcer); Denies: rash Neuro: Reports: weakness in extremities and difficulty walking; Denies: numbness in extremities Psych: Denies: anxiety Medications/Allergies Home Medications Medication Instructions Recorded Confirmed Last Taken Type acetaminophen-codeine See Rx Instructions .ROUTE 06/16/19 06/16/19 06/16/19 09:00 History [Tylenol-Codeine #4] .COMPLEX PRN 1 tablet Allergies Allergy/AdvReac Type Severity Reaction Status Date / Time No Known Allergies Allergy Verified 06/16/19 11:38 PFSH Acute PFSH: Medical History COPD (chronic obstructive pulmonary disease) oxygen dependent, 4 L at rest, 6 L with exertion Diabetic foot ulcers Heart failure with preserved ejection fraction Hyperlipidemia Hypertension Peripheral arterial disease Follow-up with cardiology PVD (peripheral vascular disease) Type 2 diabetes mellitus not insulin dependent Venous ulcer of leg Concern of peripheral vascular disease as well. 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 Vitals/I&O/Wt Last Vital Signs Temp 97.7 F 06/16/19 11:27 Pulse 75 06/16/19 15:30 Resp 20 H 06/16/19 15:30 BP 133/73 06/16/19 15:30 Pulse Ox 91 06/16/19 15:15 Weight last 48 hrs Weight 107.955 kg Physical Exam Const: COMMON NORMALS: no apparent distress and oriented x3 GENERAL APPEARANCE: cooperative, comfortable and disheveled NUTRITIONAL APPEARANCE: obese morbidly obese ORIENTATION/CONSCIOUSNESS: Yes awake HENMT: COMMON NORMALS: normocephalic, head/scalp atraumatic and hearing grossly normal bilaterally HEAD & SCALP: normocephalic and atraumatic MOUTH: moist mucous membranes abnormal Details: parched TEETH & GINGIVA: Yes dentures Eye: COMMON NORMALS: PERRL, EOMs intact bilaterally and conjunctivae normal CONJUNCTIVA: Yes conjunctivae normal PUPIL: Yes PERRL Neck/C-Spine: COMMON NORMALS: full ROM GENERAL: Yes normal visual inspection and Yes trachea midline OTHER: -short, thick neck Resp: COMMON NORMALS: no retractions and no use of accessory muscles EFFORT & INSPECTION: Yes able to speak in complete sentences, Yes symmetric chest movement and No tachypneic AUSCULTATION: crackles and diminished lung sounds bilateral OTHER: -on BiPAP (50%/16/10) Cardio: COMMON NORMALS: regular rate, regular rhythm, S1 normal heart sound, S2 normal heart sound and no murmurs RATE: regular rate RHYTHM: regular rhythm HEART SOUNDS: S1 normal and S2 normal GI: COMMON NORMALS: normal to inspection, nondistended, normoactive bowel sounds, soft to palpation and non-tender INSPECTION: Yes abdominal distension and Yes central obesity PALPATION: Yes soft, No tender, No guarding and No rigid Back/Pelvis: COMMON NORMALS: thoracic and lumbar spine normal to inspection Extremity: COMMON NORMALS: normal to inspection, full ROM and no pedal edema GENERAL: Yes edema (1+ pitting edema of bilateral LE) Neuro: COMMON NORMALS: oriented x3, moves all extremities, no focal motor deficits and no sensory deficits noted SENSORIUM/ORIENTATION: Yes alert Psych: COMMON NORMALS: mental status grossly normal, thought process normal, cooperative, affect normal and speech normal APPEARANCE: Yes unkempt and Yes disheveled SPEECH: Yes normal speech THOUGHT PROCESS: normal thought process Skin: COMMON NORMALS: no jaundice, no petechiae and no mottling OTHER: -previously noted venous stasis dermatitis of bilateral LEs; known venous ulcerations of RLE (clean/dry dressing in place) Data : 06/16/19 11:46 06/16/19 11:46 A&P Assessment and plan (1) CHF (congestive heart failure): -Acute diastolic CHF exacerbation as evidenced by noted BNP elevation of greater than 4000, hypoxia, dyspnea with exertion, lower extremity edema -Echo done during most recent admission showed an ejection fraction of 55%, this was a poor study -Start on IV diuresis with Bumex -BiPAP as needed -Daily weights, monitor ins and outs -Monitor renal function and electrolytes with diuresis -It is unclear how compliant patient was with his medication regimen as he is unaware of what his medications actually are -CT chest shows bilateral pleural effusions -Monitor vital signs -Telemetry monitoring -may need fluid restriction Status: Acute Qualifiers: Heart failure type: diastolic Heart failure chronicity: acute on chronic Qualified Code(s): I50.33 - Acute on chronic diastolic (congestive) heart failure Code(s): I50.9 - Heart failure, unspecified (2) COPD (chronic obstructive pulmonary disease): -Has known oxygen dependent COPD, 4 L at rest, 6 L with exertion -Noted increased respiratory effort -Previously treated for pneumonia with course of Levaquin -Chest x-ray today shows resolution of right lower lobe infiltrates, evidence of pulmonary fibrosis in bilateral lower lobes -Noted mild leukocytosis, had been discharged on steroids though would have completed the course by now -Supplemental oxygen as needed, will try to wean to baseline requirement if possible -Close monitoring of respiratory status -Received IV steroids in ER -Would hold off on antibiotic treatment at this time as clinical picture not entirely convincing for infection Status: Acute Qualifiers: COPD type: COPD with acute exacerbation Qualified Code(s): J44.1 - Chronic obstructive pulmonary disease with (acute) exacerbation Code(s): J44.9 - Chronic obstructive pulmonary disease, unspecified (3) Type 2 diabetes mellitus: -Has known history of [id number] diabetes, last A1c was 9.1 -We will hold metformin and start on ISS -Accu-Cheks, hypoglycemia precautions -Consistent carb and cardiac diet as tolerated Status: Acute Qualifiers: Diabetes mellitus residential insulin use: without adjunct faculty for medical terminology use Diabetes mellitus complication status: with skin complications Diabetes mellitus complication detail: with other skin complication Qualified Code(s): E11.628 - Type 2 diabetes mellitus with other skin complications Code(s): E11.9 - Type 2 diabetes mellitus without complications (4) PVD (peripheral vascular disease): -Has known history of PVD with noted venous ulcerations on bilateral lower extremities, had been seen by Dr. Fan -Continue wound care as needed -Arterial studies showing severe PAD with abnormal ABIs noted -Was referred to Dr. Martinez for evaluation of peripheral vascular disease Status: Acute Code(s): I73.9 - Peripheral vascular disease, unspecified (5) Hypertension: -Currently hemodynamically stable, continue to monitor vital signs -Resume oral antihypertensives, will hold SANJAY inhibitor for now due to noted renal impairment Status: Acute Qualifiers: Hypertension type: essential hypertension Qualified Code(s): I10 - Essential (primary) hypertension Code(s): I10 - Essential (primary) hypertension (6) Hyperlipidemia: -Resume statin Status: Acute Qualifiers: Hyperlipidemia type: unspecified Qualified Code(s): E78.5 - Hyperlipidemia, unspecified Code(s): E78.5 - Hyperlipidemia, unspecified Additional A&P Information -Morbid obesity: BMI-35 kg/m2 -Chronic smoker -GERD -remote hx of brain tumor s/p HOLTER SC[employer]ING TECHNICIAN shunt -Anxiety -possible aortic stenosis; may need further evaluation with CAITLYN -CKD stage 2; baseline Cr seems to be around 1.2 -GI ppx with PPI -DVT ppx with heparin -PT evaluation due to noted difficulty with ambulation -Dispo: home with continued HH services -Code status: FULL code -ICU admission due to need for close monitoring and low threshold for decompensation Attestations Medical Necessity Statement*: Corey Ken's hospital stay will require greater than 2 midnights for management of acute diastolic CHF exacerbation requiring IV diuresis and BiPAP as well as management of acute COPD exacerbation. Time Spent in Patient Care: Greater than 35 minutes (>than 50% of time spent in counselling and/or direct pt care on unit). Coding Level of Care Code Acute Options Advisor for Chg Fwd Diagnoses CHF (congestive heart failure) I50.33 Heart failure type: diastolic Heart failure chronicity: acute on chronic COPD (chronic obstructive pulmonary disease) J44.1 COPD type: COPD with acute exacerbation Type 2 diabetes mellitus E11.628 Diabetes mellitus adjunct faculty for medical terminology insulin use: without residential use Diabetes mellitus complication status: with skin complications Diabetes mellitus complication detail: with other skin complication PVD (peripheral vascular disease) I73.9 Hypertension I10 Hypertension type: essential hypertension Hyperlipidemia E78.5 Hyperlipidemia type: unspecified
[2019-06-16] MEDS: sodium polystyrene sulfonate 15 gm/60 mL Btl PO (16:17)
[2019-06-16] MEDS: heparin 5,000 unit/mL INJ 1 mL 5000 UNIT SUBCUT (16:17)
[2019-06-16] MEDS: bumetanide 0.25 mg/mL SDV 10 mL 1 MG IV (16:17)
[2019-06-16] MEDS: magnesium oxide 400 mg tablet PO (17:30)
[2019-06-16] MEDS: carvedilol 12.5 mg Tablet PO (17:30)
[2019-06-16 18:36] LABS: Glucose Point of Care 322 mg/dL (70-110)
[2019-06-16] MEDS: budesonide 0.5 mg/2 mL Neb INHALATION (19:46)
[2019-06-16] MEDS: hyDRALAzine 50 mg Tablet PO (21:12)
[2019-06-16] MEDS: atorvastatin 40 mg Tablet PO (21:12)
[2019-06-16] MEDS: morphine 4 mg/mL SDV 1 mL 2 MG IVP (21:14)
[2019-06-17] VITALS (28 sets, daily range): BP systolic 108–208; BP diastolic 63–107; PULSE 66–92; RESP 14–31; TEMP 36.6–36.9; O2SAT 82–94; BMI 34.9
[2019-06-17] MEDS: bumetanide 0.25 mg/mL SDV 10 mL 1 MG IV ×3 (04:00→21:19)
[2019-06-17] MEDS: heparin 5,000 unit/mL INJ 1 mL 5000 UNIT SUBCUT ×2 (04:00→16:46)
[2019-06-17] MEDS: morphine 4 mg/mL SDV 1 mL 2 MG IVP (04:00)
[2019-06-17 05:12] LABS: Blood Urea Nitrogen 36 mg/dL (8-23); Carbon Dioxide 34 mmol/L (22-29); Chloride 85 mmol/L (98-107); Glomerular Filtration Rate 61.6 mL/min (90-130); Glucose 341 mg/dL (65-115); Osmolality Calculated 279 mOsm/kg (285-295); Sodium 129 mmol/L (136-145)
[2019-06-17 05:14] LABS: Basophils % 0.1 %; Eosinophils % 0.1 %; Hematocrit 50.5 % (42.0-52.0); Hemoglobin 16.8 g/dL (11.7-16.6); Lymphocytes # 0.6 10^3/uL (0.8-4.8); Lymphocytes % 5.2 %; Mean Corpuscular HGB Conc 33.3 g/dL (30.0-36.0); Mean Corpuscular Hemoglobin 32.4 pg (28.0-34.0); Mean Corpuscular Volume 97.3 fL (80-94); Monocytes # 0.3 10^3/uL (0.2-0.9); Monocytes % 2.4 %; Neutrophils # 10.1 10^3/uL (1.8-7.7); Neutrophils % 91.7 %; Nucleated Red Blood Cells % 0 %; Platelet Count 143 10^3/cmm (130-400); Red Blood Count 5.19 10^6/uL (4.1-5.3); Red Cell Distribution Width 11.9 % (12.1-15.1)
[2019-06-17] MEDS: aspirin 81 mg EC Tablet PO (08:06)
[2019-06-17] MEDS: carvedilol 12.5 mg Tablet PO ×2 (08:06→17:36)
[2019-06-17] MEDS: hyDRALAzine 50 mg Tablet PO ×3 (08:06→21:19)
[2019-06-17] MEDS: pantoprazole DR 40 mg Tablet PO (08:07)
[2019-06-17] MEDS: magnesium oxide 400 mg tablet PO ×2 (08:07→17:39)
[2019-06-17] MEDS: amlodipine 10 mg Tablet PO (08:07)
[2019-06-17] MEDS: budesonide 0.5 mg/2 mL Neb INHALATION ×2 (08:17→20:08)
[2019-06-17] MEDS: ipratropium-albuterol 3 mL Neb INHALATION ×3 (08:18→20:08)
--- NOTE | 2019-06-17 11:44 | P.PN_ITS ---
Subjective Subjective: Interval history: No documentation of overnight urine output but so far this AM has had 1150 mL output. AM labs noted, resolved hyperkalemia, improved renal function. Still has high oxygen requirement. Noted spikes in blood pressure so will resume ACEi. Sitting in chair by bedside, on 7 L high flow NC. Unsure if he is feeling better today when asked. Used BiPAP overnight but states that I hated it. Discussed need for continued IV diuresis. Medications: Reviewed: Yes Medication Review Details: Active Medications Generic Name Dose Route Start Last Admin Trade Name Freq PRN Reason Stop Dose Admin Acetaminophen 650 mg 06/16/19 15:50 Tylenol PO Q6H PRN Mild/Mod Pain Or Temp >/= 101 Albuterol/Ipratrop ium 3 ml 06/17/19 08:39 Duoneb INHALATION Q4H.RESPIRATORY P RN SHORTNESS OF LEONELA TH Amlodipine Besylat e 10 mg 06/17/19 09:00 06/17/19 08:07 Norvasc PO 10 mg DAILY PRADIP Administration Aspirin 81 mg 06/17/19 09:00 06/17/19 08:06 Aspirin Ec PO 81 mg DAILY PRADIP Administration Atorvastatin Calci um 40 mg 06/16/19 21:00 06/16/19 21:12 Lipitor PO 40 mg BEDTIME PRADIP Administration Budesonide 0.5 mg 06/16/19 20:00 06/17/19 08:17 Pulmicort INHALATION 0.5 mg BID.RESPIRATORY S CH Administration Bumetanide 1 mg 06/17/19 15:00 Bumex IV TID PRADIP Carvedilol 12.5 mg 06/16/19 18:00 06/17/19 08:06 Coreg PO 12.5 mg BID PRADIP Administration Dextrose 25 ml 06/16/19 15:50 D50w IVP ONCE PRN hypoglycemia prot ocol Protocol Dextrose 50 ml 06/16/19 15:50 D50w IVP PRN PRN hypoglycemia prot ocol Protocol Glucagon 1 mg 06/16/19 15:50 Glucagen IM ONCE PRN Adult Acute Hypog lycemia Prot. Protocol Heparin Sodium (Be ef Lung) 5,000 unit 06/16/19 16:00 06/17/19 04:00 Heparin SUBCUT 5,000 unit Q12H PRADIP Administration Hydralazine HCl 50 mg 06/16/19 21:00 06/17/19 08:06 Apresoline PO 50 mg TID PRADIP Administration Dextrose 500 mls @ 100 mls /hr 06/16/19 15:50 D5w IV ONCE PRN Adult Acute Hypog lycemia Prot Protocol Insulin Aspart 0 unit 06/16/19 18:00 06/17/19 11:26 Novolog SUBCUT 14 unit WM&BEDTIME PRADIP Administration Protocol Magnesium Oxide 400 mg 06/16/19 18:00 06/17/19 08:07 Magox PO 400 mg BID PRADIP Administration Morphine Sulfate 2 mg 06/16/19 15:50 06/17/19 04:00 Morphine IVP 2 mg Q4H PRN Administration SEVERE PAIN Ondansetron HCl 4 mg 06/16/19 15:50 Zofran IVP Q6H PRN vomiting, or N/V if npo Pantoprazole Sodiu m 40 mg 06/17/19 09:00 06/17/19 08:07 Protonix PO 40 mg DAILY PRADIP Administration Tizanidine HCl 4 mg 06/16/19 15:55 Zanaflex PO TID PRN SPASMS No Known Allergies Allergy (Verified 06/16/19 11:38) Vitals/I&O/Wt Last Vital Signs Temp 97.9 F 06/17/19 03:00 Pulse 73 06/17/19 10:00 Resp 15 06/17/19 10:00 BP 140/67 06/17/19 10:00 Pulse Ox 89 L 06/17/19 10:00 06/16/19 06/17/19 06/17/19 22:59 06:59 14:59 Intake Total 240 / 240 480 / 480 Output Total 300 / 300 1150 / 1150 Balance -60 / -60 -670 / -670 Weight last 48 hrs Weight 107.184 kg Weight 107.955 kg Physical Exam Const: COMMON NORMALS: no apparent distress, oriented x3 and alert GENERAL APPEARANCE: cooperative, comfortable and disheveled NUTRITIONAL APPEARANCE: obese morbidly obese ORIENTATION/CONSCIOUSNESS: Yes awake HENMT: COMMON NORMALS: normocephalic, head/scalp atraumatic and hearing grossly normal bilaterally HEAD & SCALP: normocephalic and atraumatic MOUTH: moist mucous membranes abnormal Details: parched TEETH & GINGIVA: Yes dentures Eye: COMMON NORMALS: PERRL, EOMs intact bilaterally and conjunctivae normal CONJUNCTIVA: Yes conjunctivae normal PUPIL: Yes PERRL Neck/C-Spine: COMMON NORMALS: full ROM GENERAL: Yes normal visual inspection and Yes trachea midline OTHER: -short, thick neck Resp: COMMON NORMALS: no retractions and no use of accessory muscles EFFORT & INSPECTION: Yes able to speak in complete sentences, Yes symmetric chest movement and No tachypneic AUSCULTATION: crackles and diminished lung sounds bilateral OTHER: -on 7 L NC Cardio: COMMON NORMALS: regular rate, regular rhythm, S1 normal heart sound, S2 normal heart sound and no murmurs RATE: regular rate RHYTHM: regular rhythm HEART SOUNDS: S1 normal and S2 normal GI: COMMON NORMALS: normal to inspection, nondistended, normoactive bowel sounds, soft to palpation and non-tender INSPECTION: Yes abdominal distension and Yes central obesity PALPATION: Yes soft, No tender, No guarding and No rigid Back/Pelvis: COMMON NORMALS: thoracic and lumbar spine normal to inspection Extremity: COMMON NORMALS: normal to inspection, full ROM and no pedal edema GENERAL: Yes edema (1+ pitting edema of bilateral LE) Neuro: COMMON NORMALS: oriented x3, moves all extremities, no focal motor deficits and no sensory deficits noted SENSORIUM/ORIENTATION: Yes alert Psych: COMMON NORMALS: mental status grossly normal, thought process normal, cooperative, affect normal and speech normal APPEARANCE: Yes unkempt and Yes disheveled SPEECH: Yes normal speech THOUGHT PROCESS: normal thought process Skin: COMMON NORMALS: no jaundice, no petechiae and no mottling OTHER: - previously noted venous stasis dermatitis of bilateral LEs; known venous ulcerations of RLE (clean/dry dressing in place) Data : 06/17/19 04:03 06/17/19 04:03 A&P Assessment and plan (1) CHF (congestive heart failure): -Acute diastolic CHF exacerbation as evidenced by noted BNP elevation of greater than 4000, hypoxia, dyspnea with exertion, lower extremity edema -Echo done during most recent admission showed an ejection fraction of 55%, this was a poor study -on IV diuresis with Bumex; will increase dose to optimize diuresis -BiPAP as needed -Daily weights, monitor ins and outs -continue to monitor renal function and electrolytes with diuresis -It is unclear how compliant patient was with his medication regimen as he is unaware of what his medications actually are -CT chest shows bilateral pleural effusions -noted spikes in BP, continue to monitor vital signs -Telemetry monitoring -may need fluid restriction Status: Acute Qualifiers: Heart failure chronicity: acute on chronic Heart failure type: diast olic Qualified Code(s): I50.33 - Acute on chronic diastolic (congestive) heart failure Code(s): I50.9 - Heart failure, unspecified (2) COPD (chronic obstructive pulmonary disease): -Has known oxygen dependent COPD, 4 L at rest, 6 L with exertion -Noted increased respiratory effort -Previously treated for pneumonia with course of Levaquin -Chest x-ray shows resolution of right lower lobe infiltrates, evidence of pulmonary fibrosis in bilateral lower lobes -Noted mild leukocytosis, had been discharged on steroids though would have completed the course by now -Supplemental oxygen as needed, will try to wean to baseline requirement if possible -Close monitoring of respiratory status -Received IV steroids in ER -Would hold off on antibiotic treatment at this time as clinical picture not entirely convincing for infection Status: Acute Qualifiers: COPD type: COPD with acute exacerbation Qualified Code(s): J44.1 - Chronic obstructive pulmonary disease with (acute) exacerbation Code(s): J44.9 - Chronic obstructive pulmonary disease, unspecified (3) Type 2 diabetes mellitus: -Has known history of fyu-zxvvwbk-ozxxtrbvq diabetes, last A1c was 9.1 -Will hold metformin and start on ISS -Accu-Cheks, hypoglycemia precautions -Consistent carb and cardiac diet as tolerated Status: Acute Qualifiers: Diabetes mellitus complication detail: with other skin complication Diabetes mellitus complication status: with skin complications Diabetes mellitus ad terminal makeup operator insulin use: without ad terminal makeup operator use Qualified Code(s): E11.628 - Type 2 diabetes mellitus with other skin complications Code(s): E11.9 - Type 2 diabetes mellitus without complications (4) PVD (peripheral vascular disease): -Has known history of PVD with noted venous ulcerations on bilateral lower extremities, had been seen by Dr. Fan -Continue wound care as needed -Arterial studies showing severe PAD with abnormal ABIs noted -Was referred to Dr. Martinez for evaluation of peripheral vascular disease Status: Acute Code(s): I73.9 - Peripheral vascular disease, unspecified (5) Hypertension: -noted spikes in BP, otherwise hemodynamically stable, continue to monitor vital signs -continue oral antihypertensives, will resume SANJAY inhibitor as renal function at baseline Status: Acute Qualifiers: Hypertension type: essential hypertension Qualified Code(s): I10 - Essential (primary) hypertension Code(s): I10 - Essential (primary) hypertension (6) Hyperlipidemia: -Resume statin Status: Acute Qualifiers: Hyperlipidemia type: unspecified Qualified Code(s): E78.5 - Hyperl ipidemia, unspecified Code(s): E78.5 - Hyperlipidemia, unspecified Additional A&P Information -Morbid obesity: BMI-35 kg/m2 -Chronic smoker -GERD -remote hx of brain tumor s/p ALLOY WEIGHER shunt -Anxiety -possible aortic stenosis; may need further evaluation with CAITLYN -CKD stage 2; baseline Cr seems to be around 1.2 -Polycythemia; received 500 mL phlebotomy during last admission -GI ppx with PPI -DVT ppx with heparin -PT evaluation due to noted difficulty with ambulation -Dispo: home with continued HH services -Code status: FULL code -ICU care due to need for close monitoring and low threshold for decompensation Attestations Medical Necessity Statement*: Patient requires hospitalization for continued IV diuresis, hemodynamic status monitoring. Time Spent in Patient Care: Greater than 35 minutes (>than 50% of time spent in counselling and/or direct pt care on unit) . Coding Level of Care Code Acute Adult Ministries Director for Chg Fwd Exam Comprehensive Diagnoses CHF (congestive heart failure) I50.33 Heart failure chronicity: acute on chronic Heart failure type: diastolic COPD (chronic obstructive pulmonary disease) J44.1 COPD type: COPD with acute exacerbation Type 2 diabetes mellitus E11.628 Diabetes mellitus complication detail: with other skin complication Diabetes mellitus complication status: with skin complications Diabetes mellitus correction insulin use: without correction use PVD (peripheral vascular disease) I73.9 Hypertension I10 Hypertension type: essential hypertension Hyperlipidemia E78.5 Hyperlipidemia type: unspecified
[2019-06-17] MEDS: lisinopril 20 mg Tablet 40 MG PO (12:20)
--- NOTE | 2019-06-17 12:38 | PC.RESP ---
Patient given Pulmonary Rehab and Smoking Cessation information.
[2019-06-17 16:52] LABS: Glucose Point of Care 311 mg/dL (70-110)
[2019-06-17 16:52] LABS: Glucose Point of Care 352 mg/dL (70-110)
--- NOTE | 2019-06-17 17:15 | PC.CHAP ---
Pastoral Care Encounter/Spiritual Assessment Type of Contact [] Declined fare collector visit [] Patient/Family/Request visit [] Outpatient visit [] Follow-up visit [] Physician referral [] Code/Alert [x] Routine visit [] Staff referral [] Actively dying [] Patient sleeping [] Family support [] [] Out of room [] Palliative care [] [] Receiving care in room [] Pre-surgical visit [] Trauma [] Long length of stay [x] ICU visit [] Other: Relational/Emotional Strength [] Patient feels connected with others/family/visitors/staff [] Distress [] Loneliness/isolation [] Abandonment Spirituality of Patient [] Person of Natalie [] Attends Adventism of their Natalie [] Believes in Prayer [] Reads Bible or Faith materials [] There are Spiritual issues to be addressed Marketing Strategy Analyst Interventions [] Prayer [x] Active listening [x] Non-anxious presence [] Spiritual/emotional support [] Crisis/trauma care [] Spiritual counseling [] Bereavement support [] Provided bereavement packet [] Provided Bible/devotional materials [] Provided toy/stuffed animal, coloring book to patient or family member [] Provided Communion [] Anointing/[place] [] Salvation [] Completed spiritual assessment [] Other: Impact on Illness or Injury [] Angry [] Fearful [] Anxious [] Often cries [] Exhaustion [] Unable to work [] Unable to attend anabaptist [] Unable to walk/stand [] Unable to read [] Unable to drive [] Unable to eat/drink [] Unable to sleep [] Unable to be with family [] Patient intubated [] Other: Summary Patient declined prayer and stated that there wasn?t anything he needed from the chaplains. Patient visited by Marketing Strategy Analyst Srinivasa Givens. Time spent with patient 3 minutes
[2019-06-17 19:36] LABS: Glucose Point of Care 375 mg/dL (70-110)
[2019-06-17 19:36] LABS: Glucose Point of Care 210 mg/dL (70-110)
[2019-06-17] MEDS: atorvastatin 40 mg Tablet PO (21:19)
[2019-06-17 21:43] LABS: Glucose Point of Care 232 mg/dL (70-110)
[2019-06-18] VITALS (20 sets, daily range): BP systolic 94–150; BP diastolic 58–81; PULSE 72–92; RESP 14–28; TEMP 36.8–37.1; O2SAT 89–95; BMI 34.9
[2019-06-18 04:08] LABS: Basophils % 0.2 %; Eosinophils % 0.2 %; Hematocrit 49.6 % (42.0-52.0); Hemoglobin 16.5 g/dL (11.7-16.6); Lymphocytes # 1.1 10^3/uL (0.8-4.8); Lymphocytes % 5.4 %; Mean Corpuscular HGB Conc 33.3 g/dL (30.0-36.0); Mean Corpuscular Hemoglobin 30.8 pg (28.0-34.0); Mean Corpuscular Volume 92.5 fL (80-94); Mean Platelet Volume 10.6 fL (7.4-10.4); Monocytes # 1.1 10^3/uL (0.2-0.9); Monocytes % 5.6 %; Neutrophils # 17.5 10^3/uL (1.8-7.7); Neutrophils % 88.1 %; Nucleated Red Blood Cells % 0 %; Platelet Count 164 10^3/cmm (130-400); Red Blood Count 5.36 10^6/uL (4.1-5.3); White Blood Count 19.9 10^3/uL (4.0-10.0)
[2019-06-18 04:29] LABS: Anion Gap 15.1 (5-19); Blood Urea Nitrogen 35 mg/dL (8-23); Calcium 8.8 mg/dL (8.5-10.5); Carbon Dioxide 34 mmol/L (22-29); Chloride 85 mmol/L (98-107); Glucose 218 mg/dL (65-115); Osmolality Calculated 274 mOsm/kg (285-295); Potassium 4.1 mmol/L (3.5-5.1); Sodium 130 mmol/L (136-145)
[2019-06-18] MEDS: heparin 5,000 unit/mL INJ 1 mL 5000 UNIT SUBCUT ×2 (04:33→16:11)
[2019-06-18 07:32] LABS: Glucose Point of Care 215 mg/dL (70-110)
[2019-06-18] MEDS: bumetanide 0.25 mg/mL SDV 10 mL 1 MG IV ×3 (08:04→21:24)
[2019-06-18] MEDS: carvedilol 12.5 mg Tablet PO ×2 (08:05→17:16)
[2019-06-18] MEDS: pantoprazole DR 40 mg Tablet PO (08:05)
[2019-06-18] MEDS: amlodipine 10 mg Tablet PO (08:05)
[2019-06-18] MEDS: aspirin 81 mg EC Tablet PO (08:05)
[2019-06-18] MEDS: magnesium oxide 400 mg tablet PO ×2 (08:05→17:16)
[2019-06-18] MEDS: lisinopril 20 mg Tablet 40 MG PO (08:05)
[2019-06-18] MEDS: budesonide 0.5 mg/2 mL Neb INHALATION ×2 (08:25→21:33)
[2019-06-18] MEDS: ipratropium-albuterol 3 mL Neb INHALATION ×3 (08:25→21:33)
--- NOTE | 2019-06-18 10:08 | PC.CHAP ---
Pastoral Care Encounter/Spiritual Assessment Type of Contact [] Declined nozzle operator visit [] Patient/Family/Request visit [] Outpatient visit [] Follow-up visit [] Physician referral [] Code/Alert [x] Routine visit [] Staff referral [] Actively dying [x] Patient sleeping [] Family support [] [] Out of room [] Palliative care [] [] Receiving care in room [] Pre-surgical visit [] Trauma [] Long length of stay [x] ICU visit [] Other: Relational/Emotional Strength [] Patient feels connected with others/family/visitors/staff [] Distress [] Loneliness/isolation [] Abandonment Spirituality of Patient [] Person of Natalie [] Attends Alevism of their Natalie [] Believes in Prayer [] Reads Bible or Faith materials [] There are Spiritual issues to be addressed Fire Fighter Interventions [] Prayer [] Active listening [] Non-anxious presence [] Spiritual/emotional support [] Crisis/trauma care [] Spiritual counseling [] Bereavement support [] Provided bereavement packet [] Provided Bible/devotional materials [] Provided toy/stuffed animal, coloring book to patient or family member [] Provided Communion [] Anointing/[place] [] Salvation [x] Completed spiritual assessment [] Other: Impact on Illness or Injury [] Angry [] Fearful [] Anxious [] Often cries [] Exhaustion [] Unable to work [] Unable to attend quaker [] Unable to walk/stand [] Unable to read [] Unable to drive [] Unable to eat/drink [] Unable to sleep [] Unable to be with family [] Patient intubated [] Other: Summary Time spent with patient
[2019-06-18] MEDS: efferdent effervescent 1 EACH DENTAL (10:41)
--- NOTE | 2019-06-18 10:45 | XR_ITS ---
WS: [id number] CHEST XRAY TECHNIQUE: Portable chest. CLINICAL INFORMATION: bilateral pleural effusions, increased oxygen requirement COMPARISON: June 16, 2019 FINDINGS: Right SOCIAL MEDIA STRATEGIST shunt tubing. Heart: Cardiomegaly. Aortic calcification. Lungs: Small bilateral pleural effusions with subsegmental atelectasis in right greater than left cricket g base. This is progressed from previous. Bones: Normal visualized bony structures. XR/XR chest 1V portable [id number] IMPRESSION: 1. Small bilateral pleural effusions with subsegmental atelectasis in the righ t greater than left lung base is increased from previous. 2. Stable cardiomegaly.
--- NOTE | 2019-06-18 10:46 | PM.PN ---
Subjective Subjective: Interval history: AM labs noted, increased leukocytosis, improving renal function, had 1800 mL urine output overnight, negative fluid balance of 1.5 L. Noted increased oxygen requirement, on 10 L high flow NC, will repeat CXR. Patient seen and examined, sitting in chair by bedside, on NC, no complaints currently, feels fair. Did not use BiPAP last night. Medications: Reviewed: Yes Medication Review Details: Active Medications Generic Name Dose Route Start Last Admin Trade Name Freq PRN Reason Stop Dose Admin Acetaminophen 650 mg 06/16/19 15:50 Tylenol PO Q6H PRN Mild/Mod Pain Or Temp >/= 101 Albuterol/Ipratrop ium 3 ml 06/17/19 08:39 06/18/19 08:25 Duoneb INHALATION 3 ml Q4H.RESPIRATORY P RN Administration SHORTNESS OF LEONELA TH Amlodipine Besylat e 10 mg 06/17/19 09:00 06/18/19 08:05 Norvasc PO 10 mg DAILY PRADIP Administration Aspirin 81 mg 06/17/19 09:00 06/18/19 08:05 Aspirin Ec PO 81 mg DAILY PRADIP Administration Atorvastatin Calci um 40 mg 06/16/19 21:00 06/17/19 21:19 Lipitor PO 40 mg BEDTIME PRADIP Administration Budesonide 0.5 mg 06/16/19 20:00 06/18/19 08:25 Pulmicort INHALATION 0.5 mg BID.RESPIRATORY S CH Administration Bumetanide 1 mg 06/17/19 15:00 06/18/19 08:04 Bumex IV 1 mg TID PRADIP Administration Carvedilol 12.5 mg 06/16/19 18:00 06/18/19 08:05 Coreg PO 12.5 mg BID PRADIP Administration Dextrose 25 ml 06/16/19 15:50 D50w IVP ONCE PRN hypoglycemia prot ocol Protocol Dextrose 50 ml 06/16/19 15:50 D50w IVP PRN PRN hypoglycemia prot ocol Protocol Glucagon 1 mg 06/16/19 15:50 Glucagen IM ONCE PRN Adult Acute Hypog lycemia Prot. Protocol Heparin Sodium (Be ef Lung) 5,000 unit 06/16/19 16:00 06/18/19 04:33 Heparin SUBCUT 5,000 unit Q12H PRADIP Administration Hydralazine HCl 50 mg 06/16/19 21:00 06/18/19 10:09 Apresoline PO Not Given TID PRADIP Dextrose 500 mls @ 100 mls /hr 06/16/19 15:50 D5w IV ONCE PRN Adult Acute Hypog lycemia Prot Protocol Insulin Aspart 0 unit 06/16/19 18:00 06/18/19 08:04 Novolog SUBCUT 6 unit WM&BEDTIME PRADIP Administration Protocol Lisinopril 40 mg 06/17/19 11:50 06/18/19 08:05 Prinivil PO 40 mg DAILY PRADIP Administration Magnesium Oxide 400 mg 06/16/19 18:00 06/18/19 08:05 Magox PO 400 mg BID PRADIP Administration Morphine Sulfate 2 mg 06/16/19 15:50 06/17/19 04:00 Morphine IVP 2 mg Q4H PRN Administration SEVERE PAIN Ondansetron HCl 4 mg 06/16/19 15:50 Zofran IVP Q6H PRN vomiting, or N/V if npo Pantoprazole Sodiu m 40 mg 06/17/19 09:00 06/18/19 08:05 Protonix PO 40 mg DAILY PRADIP Administration Tizanidine HCl 4 mg 06/16/19 15:55 Zanaflex PO TID PRN SPASMS No Known Allergies Allergy (Verified 06/16/19 11:38) Vitals/I&O/Wt Last Vital Signs Temp 98.2 F 06/18/19 08:00 Pulse 88 06/18/19 08:28 Resp 20 H 06/18/19 08:25 BP 137/70 06/18/19 08:00 Pulse Ox 95 06/18/19 08:25 06/17/19 06/18/19 06/18/19 22:59 06:59 14:59 Intake Total 960 / 1920 480 / 2400 Output Total 1080 / 2930 900 / 3830 Balance -120 / -1010 -420 / -1430 Weight last 48 hrs Weight 107.184 kg Weight 107.184 kg Weight 107.955 kg Physical Exam Const: COMMON NORMALS: no apparent distress, oriented x3 and alert GENERAL APPEARANCE: cooperative, comfortable and disheveled NUTRITIONAL APPEARANCE: obese morbidly obese ORIENTATION/CONSCIOUSNESS: Yes awake HENMT: COMMON NORMALS: normocephalic, head/scalp atraumatic and hearing grossly normal bilaterally HEAD & SCALP: normocephalic and atraumatic MOUTH: moist mucous membranes abnormal Details: parched TEETH & GINGIVA: Yes dentures Eye: COMMON NORMALS: PERRL, EOMs intact bilaterally and conjunctivae normal CONJUNCTIVA: Yes conjunctivae normal PUPIL: Yes PERRL Neck/C-Spine: COMMON NORMALS: full ROM GENERAL: Yes normal visual inspection and Yes trachea midline OTHER: -short, thick neck Resp: COMMON NORMALS: no retractions and no use of accessory muscles EFFORT & INSPECTION: Yes able to speak in complete sentences, Yes symmetric chest movement and No tachypneic AUSCULTATION: crackles and diminished lung sounds bilateral OTHER: -on 10 L NC Cardio: COMMON NORMALS: regular rate, regular rhythm, S1 normal heart sound, S2 normal heart sound and no murmurs RATE: regular rate RHYTHM: regular rhythm HEART SOUNDS: S1 normal and S2 normal GI: COMMON NORMALS: normal to inspection, nondistended, normoactive bowel sounds, soft to palpation and non-tender INSPECTION: Yes abdominal distension and Yes central obesity PALPATION: Yes soft, No tender, No guarding and No rigid Back/Pelvis: COMMON NORMALS: thoracic and lumbar spine normal to inspection Extremity: COMMON NORMALS: normal to inspection, full ROM and no pedal edema GENERAL: Yes edema (trace pitting edema of bilateral LE) Neuro: COMMON NORMALS: oriented x3, moves all extremities, no focal motor deficits and no sensory deficits noted SENSORIUM/ORIENTATION: Yes alert Psych: COMMON NORMALS: mental status grossly normal, thought process normal, cooperative, affect normal and speech normal APPEARANCE: Yes unkempt and Yes disheveled SPEECH: Yes normal speech THOUGHT PROCESS: normal thought process Skin: COMMON NORMALS: no jaundice, no petechiae and no mottling OTHER: -previously noted venous stasis dermatitis of bilateral LEs; known venous ulcerations of RLE (clean/dry dressing in place) Data : 06/18/19 03:50 06/18/19 03:50 A&P Assessment and plan (1) CHF (congestive heart failure): -Acute diastolic CHF exacerbation as evidenced by noted BNP elevation of greater than 4000, hypoxia, dyspnea with exertion, lower extremity edema -Echo done during most recent admission showed an ejection fraction of 55%, this was a poor study -on IV diuresis with Bumex; titrate dose to optimize diuresis -BiPAP as needed -Daily weights, monitor ins and outs -continue to monitor renal function and electrolytes with diuresis -It is unclear how compliant patient was with his medication regimen as he is unaware of what his medications actually are -CT chest shows bilateral pleural effusions -noted spikes in BP, continue to monitor vital signs -Telemetry monitoring -fluid restriction (1500 mL/24 hrs) Status: Acute Qualifiers: Heart failure chronicity: acute on chronic Heart failure type: diastolic Qualified Code(s): I50.33 - Acute on chronic diastolic (congestive) heart failure Code(s): I50.9 - Heart failure, unspecified (2) COPD (chronic obstructive pulmonary disease): -Has known oxygen dependent COPD, 4 L at rest, 6 L with exertion -Noted increased respiratory effort -Previously treated for pneumonia with course of Levaquin -Chest x-ray shows resolution of right lower lobe infiltrates, evidence of pulmonary fibrosis in bilateral lower lobes. Repeat CXR today -increased leukocytosis, had been discharged on steroids though would have completed the course by now -Supplemental oxygen as needed, will try to wean to baseline requirement if possible -Close monitoring of respiratory status -Received IV steroids in ER -Would hold off on antibiotic treatment at this time as clinical picture not entirely convincing for infection Status: Acute Qualifiers: COPD type: COPD with acute exacerbation Qualified Code(s): J44.1 - Chronic obstructive pulmonary disease with (acute) exacerbation Code(s): J44.9 - Chronic obstructive pulmonary disease, unspecified (3) Type 2 diabetes mellitus: -Has known history of [id number] diabetes, last A1c was 9.1 -hold metformin, on ISS -Accu-Cheks, hypoglycemia precautions -Consistent carb and cardiac diet as tolerated Status: Chronic Qualifiers: Diabetes mellitus complication detail: with other skin complication Diabetes mellitus complication status: with skin complications Diabetes mellitus food and beverage service manager insulin use: without food and beverage service manager use Qualified Code(s): E11.628 - Type 2 diabetes mellitus with other skin complications Code(s): E11.9 - Type 2 diabetes mellitus without complications (4) PVD (peripheral vascular disease): -Has known history of PVD with noted venous ulcerations on bilateral lower extremities, had been seen by Dr. Fan -Continue wound care as needed -Arterial studies showing severe PAD with abnormal ABIs noted -Was referred to Dr. Martinez for evaluation of peripheral vascular disease Status: Chronic Code(s): I73.9 - Peripheral vascular disease, unspecified (5) Hypertension: -noted spikes in BP, otherwise hemodynamically stable, continue to monitor vital signs -continue oral antihypertensives, will resume SANJAY inhibitor as renal function at baseline Status: Chronic Qualifiers: Hypertension type: essential hypertension Qualified Code(s): I10 - Essential (primary) hypertension Code(s): I10 - Essential (primary) hypertension (6) Hyperlipidemia: -continue statin Status: Chronic Qualifiers: Hyperlipidemia type: unspecified Qualified Code(s): E78.5 - Hyperlipidemia, unspecified Code(s): E78.5 - Hyperlipidemia, unspecified Additional A&P Information -Morbid obesity: BMI-35 kg/m2 -Chronic smoker -GERD -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 Time Spent in Patient Care: Greater than 35 minutes (>than 50% of time spent in counselling and/or direct pt care on unit). Coding Level of Care Code Acute Canvas Cutter for Chg Fwd Exam Comprehensive Diagnoses CHF (congestive heart failure) I50.33 Heart failure chronicity: acute on chronic Heart failure type: diastolic COPD (chronic obstructive pulmonary disease) J44.1 COPD type: COPD with acute exacerbation Type 2 diabetes mellitus E11.628 Diabetes mellitus complication detail: with other skin complication Diabetes mellitus complication status: with skin complications Diabetes mellitus food and beverage service manager insulin use: without food and beverage service manager use PVD (peripheral vascular disease) I73.9 Hypertension I10 Hypertension type: essential hypertension Hyperlipidemia E78.5 Hyperlipidemia type: unspecified
[2019-06-18 11:35] LABS: Glucose Point of Care 319 mg/dL (70-110)
--- NOTE | 2019-06-18 15:05 | PC.NURSE ---
Transfer to floor Patient transferred to [facility] via wheelchair. All belongings sent with patient. Patient oriented to room and call light within reach.
[2019-06-18] MEDS: hyDRALAzine 50 mg Tablet PO ×2 (16:11→21:25)
[2019-06-18 17:12] LABS: Glucose Point of Care 193 mg/dL (70-110)
[2019-06-18] MEDS: atorvastatin 40 mg Tablet PO (21:25)
[2019-06-18 21:31] LABS: Glucose Point of Care 289 mg/dL (70-110)
[2019-06-19] VITALS (16 sets, daily range): BP systolic 99–137; BP diastolic 54–76; PULSE 70–88; RESP 18–26; TEMP 36.4–37.2; O2SAT 87–92; BMI 35.6
[2019-06-19] MEDS: heparin 5,000 unit/mL INJ 1 mL 5000 UNIT SUBCUT ×2 (04:19→16:13)
[2019-06-19 04:48] LABS: Basophils % 0.2 %; Eosinophils # 0.1 10^3/uL (0.0-0.8); Eosinophils % 0.7 %; Hematocrit 47.4 % (42.0-52.0); Hemoglobin 15.7 g/dL (11.7-16.6); Lymphocytes % 6.4 %; Mean Corpuscular HGB Conc 33.1 g/dL (30.0-36.0); Mean Corpuscular Hemoglobin 30.8 pg (28.0-34.0); Mean Corpuscular Volume 92.9 fL (80-94); Mean Platelet Volume 10.5 fL (7.4-10.4); Monocytes % 6.5 %; Neutrophils # 12.9 10^3/uL (1.8-7.7); Neutrophils % 85.5 %; Nucleated Red Blood Cells % 0 %; Platelet Count 153 10^3/cmm (130-400); Red Cell Distribution Width 11.9 % (12.1-15.1); White Blood Count 15.1 10^3/uL (4.0-10.0)
[2019-06-19 05:14] LABS: Anion Gap 15.6 (5-19); Blood Urea Nitrogen 29 mg/dL (8-23); Calcium 8.6 mg/dL (8.5-10.5); Carbon Dioxide 34 mmol/L (22-29); Chloride 85 mmol/L (98-107); Glomerular Filtration Rate 85.8 mL/min (90-130); Glucose 233 mg/dL (65-115); Osmolality Calculated 277 mOsm/kg (285-295); Potassium 3.6 mmol/L (3.5-5.1); Sodium 131 mmol/L (136-145)
[2019-06-19 06:29] LABS: Glucose Point of Care 209 mg/dL (70-110)
[2019-06-19 08:24] LABS: Glucose Point of Care 203 mg/dL (70-110)
[2019-06-19] MEDS: budesonide 0.5 mg/2 mL Neb INHALATION ×2 (09:20→19:51)
[2019-06-19] MEDS: ipratropium-albuterol 3 mL Neb INHALATION ×3 (09:20→19:51)
[2019-06-19] MEDS: pantoprazole DR 40 mg Tablet PO (09:37)
[2019-06-19] MEDS: magnesium oxide 400 mg tablet PO ×2 (09:38→17:02)
[2019-06-19] MEDS: aspirin 81 mg EC Tablet PO (09:38)
[2019-06-19] MEDS: lisinopril 20 mg Tablet 40 MG PO (09:39)
[2019-06-19] MEDS: carvedilol 12.5 mg Tablet PO ×2 (09:39→17:02)
[2019-06-19] MEDS: hyDRALAzine 50 mg Tablet PO ×3 (09:40→21:24)
[2019-06-19] MEDS: amlodipine 10 mg Tablet PO (09:40)
[2019-06-19] MEDS: bumetanide 0.25 mg/mL SDV 10 mL 1 MG IV ×3 (09:42→21:24)
--- NOTE | 2019-06-19 11:24 | P.PN_ITS ---
Subjective Subjective: Interval history: Is down to 6 L nasal cannula, decreasing leukocytosis, improving renal function. Had 1050 mL urine output overnight, total negative fluid balance of 2 L. Patient seen and examined, resting in bed, seems a little bit more short of breath today, has been having a cough with difficulty with expectoration. No acute overnight events reported, did not use BiPAP last night. Medications: Reviewed: Yes Medication Review Details: Active Medications Generic Name Dose Route Start Last Admin Trade Name Freq PRN Reason Stop Dose Admin Acetaminophen 650 mg 06/16/19 15:50 Tylenol PO Q6H PRN Mild/Mod Pain Or Temp >/= 101 Albuterol/Ipratrop ium 3 ml 06/17/19 08:39 06/19/19 09:20 Duoneb INHALATION 3 ml Q4H.RESPIRATORY P RN Administration SHORTNESS OF LEONELA TH Amlodipine Besylat e 10 mg 06/17/19 09:00 06/19/19 09:40 Norvasc PO 10 mg DAILY PRADIP Administration Aspirin 81 mg 06/17/19 09:00 06/19/19 09:38 Aspirin Ec PO 81 mg DAILY PRADIP Administration Atorvastatin Calci um 40 mg 06/16/19 21:00 06/18/19 21:25 Lipitor PO 40 mg BEDTIME PRADIP Administration Budesonide 0.5 mg 06/16/19 20:00 06/19/19 09:20 Pulmicort INHALATION 0.5 mg BID.RESPIRATORY S CH Administration Bumetanide 1 mg 06/17/19 15:00 06/19/19 09:42 Bumex IV 1 mg TID PRADIP Administration Carvedilol 12.5 mg 06/16/19 18:00 06/19/19 09:39 Coreg PO 12.5 mg BID PRADIP Administration Dextrose 25 ml 06/16/19 15:50 D50w IVP ONCE PRN hypoglycemia prot ocol Protocol Dextrose 50 ml 06/16/19 15:50 D50w IVP PRN PRN hypoglycemia prot ocol Protocol Glucagon 1 mg 06/16/19 15:50 Glucagen IM ONCE PRN Adult Acute Hypog lycemia Prot. Protocol Heparin Sodium (Be ef Lung) 5,000 unit 06/16/19 16:00 06/19/19 04:19 Heparin SUBCUT 5,000 unit Q12H PRADIP Administration Hydralazine HCl 50 mg 06/16/19 21:00 06/19/19 09:40 Apresoline PO 50 mg TID PRADIP Administration Dextrose 500 mls @ 100 mls /hr 06/16/19 15:50 D5w IV ONCE PRN Adult Acute Hypog lycemia Prot Protocol Insulin Aspart 0 unit 06/16/19 18:00 06/19/19 08:47 Novolog SUBCUT 6 unit WM&BEDTIME PRADIP Administration Protocol Lisinopril 40 mg 06/17/19 11:50 06/19/19 09:39 Prinivil PO 40 mg DAILY PRADIP Administration Magnesium Oxide 400 mg 06/16/19 18:00 06/19/19 09:38 Magox PO 400 mg BID PRADIP Administration Morphine Sulfate 2 mg 06/16/19 15:50 06/17/19 04:00 Morphine IVP 2 mg Q4H PRN Administration SEVERE PAIN Ondansetron HCl 4 mg 06/16/19 15:50 Zofran IVP Q6H PRN vomiting, or N/V if npo Pantoprazole Sodiu m 40 mg 06/17/19 09:00 06/19/19 09:37 Protonix PO 40 mg DAILY PRADIP Administration Tizanidine HCl 4 mg 06/16/19 15:55 Zanaflex PO TID PRN SPASMS No Known Allergies Allergy (Verified 06/16/19 11:38) Vitals/I&O/Wt Last Vital Signs Temp 97.8 F 06/19/19 07:54 Pulse 88 06/19/19 09:26 Resp 20 H 06/19/19 09:25 BP 137/76 06/19/19 07:54 Pulse Ox 90 06/19/19 09:25 06/18/19 06/19/19 06/19/19 22:59 06:59 14:59 Intake Total 0 / 560 720 / 720 Output Total 800 / 1200 500 / 1700 150 / 150 Balance -800 / -640 -500 / -1140 570 / 570 Weight last 48 hrs Weight 109.458 kg Weight 109.458 kg Weight 107.184 kg Physical Exam Const: COMMON NORMALS: no apparent distress, oriented x3 and alert GENERAL APPEARANCE: cooperative, comfortable and disheveled NUTRITIONAL APPEARANCE: obese morbidly obese ORIENTATION/CONSCIOUSNESS: Yes awake HENMT: COMMON NORMALS: normocephalic, head/scalp atraumatic and hearing grossly normal bilaterally HEAD & SCALP: normocephalic and atraumatic MOUTH: moist mucous membranes abnormal Details: parched TEETH & GINGIVA: Yes dentures Eye: COMMON NORMALS: PERRL, EOMs intact bilaterally and conjunctivae normal CONJUNCTIVA: Yes conjunctivae normal PUPIL: Yes PERRL Neck/C-Spine: COMMON NORMALS: full ROM GENERAL: Yes normal visual inspection and Yes trachea midline OTHER: -short, thick neck Resp: COMMON NORMALS: no retractions and no use of accessory muscles EFFORT & INSPECTION: Yes able to speak in complete sentences, Yes symmetric chest movement and No tachypneic AUSCULTATION: crackles and diminished lung sounds bilateral OTHER: -on 6 L NC Cardio: COMMON NORMALS: regular rate, regular rhythm, S1 normal heart sound, S2 normal heart sound and no murmurs RATE: regular rate RHYTHM: regular rhythm HEART SOUNDS: S1 normal and S2 normal GI: COMMON NORMALS: normal to inspection, nondistended, normoactive bowel sounds, soft to palpation and non-tender INSPECTION: Yes abdominal distension and Yes central obesity PALPATION: Yes soft, No tender, No guarding and No rigid Back/Pelvis: COMMON NORMALS: thoracic and lumbar spine normal to inspection Extremity: COMMON NORMALS: normal to inspection, full ROM and no pedal edema GENERAL: Yes edema (trace pitting edema of bilateral LE) Neuro: COMMON NORMALS: oriented x3, moves all extremities, no focal motor deficits and no sensory deficits noted SENSORIUM/ORIENTATION: Yes alert Psych: COMMON NORMALS: mental status grossly normal, thought process normal, cooperative, affect normal and speech normal APPEARANCE: Yes unkempt and Yes disheveled SPEECH: Yes normal speech THOUGHT PROCESS: normal thought process Skin: COMMON NORMALS: no jaundice, no petechiae and no mottling OTHER: - previously noted venous stasis dermatitis of bilateral LEs; known venous ulcerations of RLE (clean/dry dressing in place) Data : 06/19/19 04:32 06/19/19 04:32 A&P Assessment and plan (1) CHF (congestive heart failure): -Acute diastolic CHF exacerbation as evidenced by noted BNP elevation of greater than 4000, hypoxia, dyspnea with exertion, lower extremity edema -Echo done during most recent admission showed an ejection fraction of 55%, this was a poor study -on IV diuresis with Bumex; titrate dose to optimize diuresis -BiPAP as needed -Daily weights, monitor ins and outs -continue to monitor renal function and electrolytes with diuresis -It is unclear how compliant patient was with his medication regimen as he is unaware of what his medications actually are -CT chest shows bilateral pleural effusions -noted spikes in BP, continue to monitor vital signs -Telemetry monitoring -fluid restriction (1500 mL/24 hrs) Status: Acute Qualifiers: Heart failure chronicity: acute on chronic Heart failure type: diastolic Qualified Code(s): I50.33 - Acute on chronic diastolic (congestive) heart failure Code(s): I50.9 - Heart failure, unspecified (2) COPD (chronic obstructive pulmonary disease): -Has known oxygen dependent COPD, 4 L at rest, 6 L with exertion -Noted increased respiratory effort -Previously treated for pneumonia with course of Levaquin -Chest x-ray shows resolution of right lower lobe infiltrates, evidence of pulmonary fibrosis in bilateral lower lobes. Repeat CXR (06/18) shows small bilateral pleural effusions with subsegmental atelectasis in the right greater than left -decreased leukocytosis, had been discharged on steroids though would have completed the course by now -Supplemental oxygen as needed, will try to wean to baseline requirement if possible -Close monitoring of respiratory status -Received IV steroids in ER -Would hold off on antibiotic treatment at this time as clinical picture not entirely convincing for infection -add flutter valve and mucinex as expectorant Status: Acute Qualifiers: COPD type: COPD with acute exacerbation Qualified Code(s): J44.1 - Chronic obstructive pulmonary disease with (acute) exacerbation Code(s): J44.9 - Chronic obstructive pulmonary disease, unspecified (3) Type 2 diabetes mellitus: -Has known history of daw-wipyism-bgnlercuh diabetes, last A1c was 9.1 -hold metformin, on ISS -Accu-Cheks, hypoglycemia precautions -Consistent carb and cardiac diet as tolerated Status: Chronic Qualifiers: Diabetes mellitus complication detail: with other skin complication Diabetes mellitus complication status: with skin complications Diabetes mellitus intermediate insulin use: without intermediate use Qualified Code(s): E11.628 - Type 2 diabetes mellitus with other skin complications Code(s): E11.9 - Type 2 diabetes mellitus without complications (4) PVD (peripheral vascular disease): -Has known history of PVD with noted venous ulcerations on bilateral lower extremities, had been seen by Dr. Fan -Continue wound care as needed -Arterial studies showing severe PAD with abnormal ABIs noted -Was referred to Dr. Martinez for evaluation of peripheral vascular disease Status: Chronic Code(s): I73.9 - Peripheral vascular disease, unspecified (5) Hypertension: -noted spikes in BP, otherwise hemodynamically stable, continue to monitor vital signs -continue oral antihypertensives, resumed SANJAY inhibitor as renal function at baseline Status: Chronic Qualifiers: Hypertension type: essential hypertension Qualified Code(s): I10 - Essential (primary) hypertension Code(s): I10 - Essential (primary) hypertension (6) Hyperlipidemia: -continue statin Status: Chronic Qualifiers: Hyperlipidemia type: unspecified Qualified Code(s): E78.5 - Hyperlipidemia, unspecified Code(s): E78.5 - Hyperlipidemia, unspecified Additional A&P Information -Morbid obesity: BMI-36 kg/m2 -Chronic smoker -GERD -remote hx of brain tumor s/p TRAINING AND DEVELOPMENT PROFESSIONAL shunt -Anxiety -possible aortic stenosis; may need further evaluation with CAITLYN -CKD stage 2; baseline Cr seems to be around 1.2 -Polycythemia; received 500 mL phlebotomy during last admission; stable H/H -GI ppx with PPI -DVT ppx with heparin -PT evaluation due to noted difficulty with ambulation -Dispo: home with continued HH services -Code status: FULL code Attestations Medical Necessity Statement*: Patient requires hospitalization for continued IV diuresis, continued monitoring of respiratory status, weaning down oxygen requirement. Time Spent in Patient Care: Greater than 35 minutes (>than 50% of time spent in counselling and/or direct pt care on unit) . Coding Level of Care Code Acute Equipment Mechanic Specialist for [facility] Fwd Exam Comprehensive Diagnoses CHF (congestive heart failure) I50.33 Heart failure chronicity: acute on chronic Heart failure type: diastolic COPD (chronic obstructive pulmonary disease) J44.1 COPD type: COPD with acute exacerbation Type 2 diabetes mellitus E11.628 Diabetes mellitus complication detail: with other skin complication Diabetes mellitus complication status: with skin complications Diabetes mellitus intermediate insulin use: without manager intermediate use PVD (peripheral vascular disease) I73.9 Hypertension I10 Hypertension type: essential hypertension Hyperlipidemia E78.5 Hyperlipidemia type: unspecified
[2019-06-19 11:31] LABS: Glucose Point of Care 325 mg/dL (70-110)
[2019-06-19] MEDS: morphine 4 mg/mL SDV 1 mL 2 MG IVP ×3 (12:57→21:27)
--- NOTE | 2019-06-19 14:34 | PC.SOCIAL ---
IMM Update Pg 2 of IMM given and explained to patient who verbalized understanding. Signed, dated, and timed and placed in chart. Copy provided to patient.
[2019-06-19] MEDS: acetaminophen 325 mg Tablet 650 MG PO (17:01)
[2019-06-19] MEDS: guaiFENesin 600 mg Tablet 1200 MG PO (17:02)
[2019-06-19] MEDS: tizanidine 4 mg Tablet PO (17:02)
[2019-06-19 17:12] LABS: Glucose Point of Care 168 mg/dL (70-110)
[2019-06-19 20:52] LABS: Glucose Point of Care 336 mg/dL (70-110)
[2019-06-19] MEDS: atorvastatin 40 mg Tablet PO (21:24)
--- NOTE | 2019-06-19 22:16 | PC.NURSE ---
patient lung sounds ae crackly, wet sounding jolynn coughing. encouraged to spit up what he gets up and a cup provided.
[2019-06-20] VITALS (23 sets, daily range): BP systolic 87–137; BP diastolic 49–73; PULSE 67–95; RESP 18–24; TEMP 32.2–37; O2SAT 86–92
[2019-06-20] MEDS: ipratropium-albuterol 3 mL Neb INHALATION ×6 (00:03→19:28)
[2019-06-20] MEDS: morphine 4 mg/mL SDV 1 mL 2 MG IVP ×3 (03:01→15:27)
[2019-06-20] MEDS: tizanidine 4 mg Tablet PO ×3 (03:01→15:25)
[2019-06-20] MEDS: heparin 5,000 unit/mL INJ 1 mL 5000 UNIT SUBCUT ×2 (04:08→15:27)
[2019-06-20 05:18] LABS: Basophils % 0.2 %; Eosinophils # 0.2 10^3/uL (0.0-0.8); Eosinophils % 1.5 %; Hematocrit 46.8 % (42.0-52.0); Hemoglobin 15.3 g/dL (11.7-16.6); Lymphocytes % 7.4 %; Mean Corpuscular HGB Conc 32.7 g/dL (30.0-36.0); Mean Corpuscular Hemoglobin 31.7 pg (28.0-34.0); Mean Corpuscular Volume 96.9 fL (80-94); Mean Platelet Volume 10.6 fL (7.4-10.4); Monocytes # 0.8 10^3/uL (0.2-0.9); Neutrophils # 10.9 10^3/uL (1.8-7.7); Neutrophils % 84.4 %; Nucleated Red Blood Cells % 0 %; Platelet Count 145 10^3/cmm (130-400); Red Blood Count 4.83 10^6/uL (4.1-5.3); Red Cell Distribution Width 11.9 % (12.1-15.1); White Blood Count 12.9 10^3/uL (4.0-10.0)
[2019-06-20 05:44] LABS: Anion Gap 14.6 (5-19); Blood Urea Nitrogen 27 mg/dL (8-23); Calcium 8.1 mg/dL (8.5-10.5); Carbon Dioxide 38 mmol/L (22-29); Chloride 87 mmol/L (98-107); Glomerular Filtration Rate 68.1 mL/min (90-130); Glucose 173 mg/dL (65-115); Osmolality Calculated 283 mOsm/kg (285-295); Potassium 3.6 mmol/L (3.5-5.1); Sodium 136 mmol/L (136-145)
[2019-06-20 06:51] LABS: Glucose Point of Care 198 mg/dL (70-110)
[2019-06-20] MEDS: budesonide 0.5 mg/2 mL Neb INHALATION ×2 (07:59→19:28)
[2019-06-20] MEDS: carvedilol 12.5 mg Tablet PO ×2 (08:39→17:36)
[2019-06-20] MEDS: pantoprazole DR 40 mg Tablet PO (08:39)
[2019-06-20] MEDS: magnesium oxide 400 mg tablet PO ×2 (08:39→17:36)
[2019-06-20] MEDS: guaiFENesin 600 mg Tablet 1200 MG PO ×2 (08:39→17:36)
[2019-06-20] MEDS: amlodipine 10 mg Tablet PO (08:40)
[2019-06-20] MEDS: aspirin 81 mg EC Tablet PO (08:40)
[2019-06-20] MEDS: lisinopril 20 mg Tablet 40 MG PO (08:40)
[2019-06-20] MEDS: hyDRALAzine 50 mg Tablet PO (08:41)
[2019-06-20] MEDS: bumetanide 0.25 mg/mL SDV 10 mL 1 MG IV (08:41)
[2019-06-20] MEDS: acetaminophen 325 mg Tablet 650 MG PO ×2 (08:46→15:25)
--- NOTE | 2019-06-20 11:20 | PM.PN ---
Subjective Subjective: Interval history: Had 350 mL urine output overnight, AM labs noted, improved renal function, decreasing leukocytosis. Has not been using BiPAP at night as unable to tolerate the pressure. Maintained on 6 L NC, saturating at 90%. No complaints currently, is having difficulty complying with fluid restriction. We will switch to oral diuretics as better compensated clinically. Medications: Reviewed: Yes Medication Review Details: Active Medications Generic Name Dose Route Start Last Admin Trade Name Freq PRN Reason Stop Dose Admin Acetaminophen 650 mg 06/16/19 15:50 06/20/19 08:46 Tylenol PO 650 mg Q6H PRN Administration Mild/Mod Pain Or Temp >/= 101 Albuterol/Ipratrop ium 3 ml 06/17/19 08:39 06/20/19 08:00 Duoneb INHALATION 3 ml Q4H.RESPIRATORY P RN Administration SHORTNESS OF LEONELA TH Amlodipine Besylat e 10 mg 06/17/19 09:00 06/20/19 08:40 Norvasc PO 10 mg DAILY PRADIP Administration Aspirin 81 mg 06/17/19 09:00 06/20/19 08:40 Aspirin Ec PO 81 mg DAILY PRADIP Administration Atorvastatin Calci um 40 mg 06/16/19 21:00 06/19/19 21:24 Lipitor PO 40 mg BEDTIME PRADIP Administration Budesonide 0.5 mg 06/16/19 20:00 06/20/19 07:59 Pulmicort INHALATION 0.5 mg BID.RESPIRATORY S CH Administration Bumetanide 1 mg 06/17/19 15:00 06/20/19 08:41 Bumex IV 1 mg TID PRADIP Administration Carvedilol 12.5 mg 06/16/19 18:00 06/20/19 08:39 Coreg PO 12.5 mg BID PRADIP Administration Dextrose 25 ml 06/16/19 15:50 D50w IVP ONCE PRN hypoglycemia prot ocol Protocol Dextrose 50 ml 06/16/19 15:50 D50w IVP PRN PRN hypoglycemia prot ocol Protocol Glucagon 1 mg 06/16/19 15:50 Glucagen IM ONCE PRN Adult Acute Hypog lycemia Prot. Protocol Guaifenesin 1,200 mg 06/19/19 18:00 06/20/19 08:39 Mucinex PO 1,200 mg BID PRADIP Administration Heparin Sodium (Be ef Lung) 5,000 unit 06/16/19 16:00 06/20/19 04:08 Heparin SUBCUT 5,000 unit Q12H PRADIP Administration Hydralazine HCl 50 mg 06/16/19 21:00 06/20/19 08:41 Apresoline PO 50 mg TID PRADIP Administration Dextrose 500 mls @ 100 mls /hr 06/16/19 15:50 D5w IV ONCE PRN Adult Acute Hypog lycemia Prot Protocol Insulin Aspart 0 unit 06/16/19 18:00 06/20/19 08:38 Novolog SUBCUT 6 unit WM&BEDTIME PRADIP Administration Protocol Lisinopril 40 mg 06/17/19 11:50 06/20/19 08:40 Prinivil PO 40 mg DAILY PRADIP Administration Magnesium Oxide 400 mg 06/16/19 18:00 06/20/19 08:39 Magox PO 400 mg BID PRADIP Administration Morphine Sulfate 2 mg 06/16/19 15:50 06/20/19 08:47 Morphine IVP 2 mg Q4H PRN Administration SEVERE PAIN Ondansetron HCl 4 mg 06/16/19 15:50 Zofran IVP Q6H PRN vomiting, or N/V if npo Pantoprazole Sodiu m 40 mg 06/17/19 09:00 06/20/19 08:39 Protonix PO 40 mg DAILY PRADIP Administration Tizanidine HCl 4 mg 06/16/19 15:55 06/20/19 08:48 Zanaflex PO 4 mg TID PRN Administration SPASMS No Known Allergies Allergy (Verified 06/16/19 11:38) Vitals/I&O/Wt Last Vital Signs Temp 98.6 F 06/20/19 11:12 Pulse 68 06/20/19 11:12 Resp 22 H 06/20/19 11:12 BP 97/59 06/20/19 11:12 Pulse Ox 92 06/20/19 11:12 06/19/19 06/20/19 06/20/19 22:59 06:59 14:59 Intake Total 240 / 1200 550 / 1750 400 / 400 Output Total 350 / 1200 350 / 1550 550 / 550 Balance -110 / 0 200 / 200 -150 / -150 Weight last 48 hrs Weight 108.976 kg Weight 109.458 kg Weight 109.458 kg Physical Exam Const: COMMON NORMALS: no apparent distress, oriented x3 and alert GENERAL APPEARANCE: cooperative, comfortable and disheveled NUTRITIONAL APPEARANCE: obese morbidly obese ORIENTATION/CONSCIOUSNESS: Yes awake HENMT: COMMON NORMALS: normocephalic, head/scalp atraumatic and hearing grossly normal bilaterally HEAD & SCALP: normocephalic and atraumatic MOUTH: moist mucous membranes abnormal Details: parched TEETH & GINGIVA: Yes dentures Eye: COMMON NORMALS: PERRL, EOMs intact bilaterally and conjunctivae normal CONJUNCTIVA: Yes conjunctivae normal PUPIL: Yes PERRL Neck/C-Spine: COMMON NORMALS: full ROM GENERAL: Yes normal visual inspection and Yes trachea midline OTHER: -short, thick neck Resp: COMMON NORMALS: no retractions and no use of accessory muscles EFFORT & INSPECTION: Yes able to speak in complete sentences, Yes symmetric chest movement and No tachypneic AUSCULTATION: crackles and diminished lung sounds bilateral OTHER: -on 6 L NC Cardio: COMMON NORMALS: regular rate, regular rhythm, S1 normal heart sound, S2 normal heart sound and no murmurs RATE: regular rate RHYTHM: regular rhythm HEART SOUNDS: S1 normal and S2 normal GI: COMMON NORMALS: normal to inspection, nondistended, normoactive bowel sounds, soft to palpation and non-tender INSPECTION: Yes abdominal distension and Yes central obesity PALPATION: Yes soft, No tender, No guarding and No rigid Back/Pelvis: COMMON NORMALS: thoracic and lumbar spine normal to inspection Extremity: COMMON NORMALS: normal to inspection, full ROM and no pedal edema GENERAL: Yes edema (trace pitting edema of bilateral LE) Neuro: COMMON NORMALS: oriented x3, moves all extremities, no focal motor deficits and no sensory deficits noted SENSORIUM/ORIENTATION: Yes alert Psych: COMMON NORMALS: mental status grossly normal, thought process normal, cooperative, affect normal and speech normal APPEARANCE: Yes unkempt and Yes disheveled SPEECH: Yes normal speech THOUGHT PROCESS: normal thought process Skin: COMMON NORMALS: no jaundice, no petechiae and no mottling OTHER: -previously noted venous stasis dermatitis of bilateral LEs; known venous ulcerations of RLE (clean/dry dressing in place) Data : 06/20/19 04:45 06/20/19 04:45 A&P Assessment and plan (1) CHF (congestive heart failure): -Acute diastolic CHF exacerbation as evidenced by noted BNP elevation of greater than 4000, hypoxia, dyspnea with exertion, lower extremity edema -Echo done during most recent admission showed an ejection fraction of 55%, this was a poor study -on IV diuresis with Bumex; titrate dose to optimize diuresis; has diuresed 2.6 L so far. Better compensated, will resume oral Lasix and add Metolazone -BiPAP as needed -Daily weights, monitor ins and outs -continue to monitor renal function and electrolytes with diuresis -It is unclear how compliant patient was with his medication regimen as he is unaware of what his medications actually are -CT chest shows bilateral pleural effusions -noted spikes in BP, continue to monitor vital signs -Telemetry monitoring -d/c fluid restriction (1500 mL/24 hrs) Status: Acute Qualifiers: Heart failure chronicity: acute on chronic Heart failure type: diastolic Qualified Code(s): I50.33 - Acute on chronic diastolic (congestive) heart failure Code(s): I50.9 - Heart failure, unspecified (2) COPD (chronic obstructive pulmonary disease): -Has known oxygen dependent COPD, 4 L at rest, 6 L with exertion -Noted increased respiratory effort -Previously treated for pneumonia with course of Levaquin -Chest x-ray shows resolution of right lower lobe infiltrates, evidence of pulmonary fibrosis in bilateral lower lobes. Repeat CXR (06/18) shows small bilateral pleural effusions with subsegmental atelectasis in the right greater than left -decreased leukocytosis, had been discharged on steroids though would have completed the course by now -Supplemental oxygen as needed, will try to wean to baseline requirement if possible -Close monitoring of respiratory status -Received IV steroids in ER -Would hold off on antibiotic treatment at this time as clinical picture not entirely convincing for infection -added flutter valve and mucinex as expectorant Status: Acute Qualifiers: COPD type: COPD with acute exacerbation Qualified Code(s): J44.1 - Chronic obstructive pulmonary disease with (acute) exacerbation Code(s): J44.9 - Chronic obstructive pulmonary disease, unspecified (3) Type 2 diabetes mellitus: -Has known history of lik-ymxxtbo-mmctcpfsf diabetes, last A1c was 9.1 -hold metformin, on ISS -Accu-Cheks, hypoglycemia precautions -Consistent carb and cardiac diet as tolerated Status: Chronic Qualifiers: Diabetes mellitus complication detail: with other skin complication Diabetes mellitus complication status: with skin complications Diabetes mellitus termite renewal inspector insulin use: without [place] [facility] use Qualified Code(s): E11.628 - Type 2 diabetes mellitus with other skin complications Code(s): E11.9 - Type 2 diabetes mellitus without complications (4) PVD (peripheral vascular disease): -Has known history of PVD with noted venous ulcerations on bilateral lower extremities, had been seen by Dr. Fan -Continue wound care as needed -Arterial studies showing severe PAD with abnormal ABIs noted -Was referred to Dr. Martinez for evaluation of peripheral vascular disease Status: Chronic Code(s): I73.9 - Peripheral vascular disease, unspecified (5) Hypertension: -noted spikes in BP, otherwise hemodynamically stable, continue to monitor vital signs -continue oral antihypertensives, resumed SANJAY inhibitor as renal function at baseline Status: Chronic Qualifiers: Hypertension type: essential hypertension Qualified Code(s): I10 - Essential (primary) hypertension Code(s): I10 - Essential (primary) hypertension (6) Hyperlipidemia: -continue statin Status: Chronic Qualifiers: Hyperlipidemia type: unspecified Qualified Code(s): E78.5 - Hyperlipidemia, unspecified Code(s): E78.5 - Hyperlipidemia, unspecified Additional A&P Information -Morbid obesity: BMI-37 kg/m2 -Chronic smoker -GERD -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 Time Spent in Patient Care: Greater than 35 minutes (>than 50% of time spent in counselling and/or direct pt care on unit). Coding Level of Care Code Acute Audiovisual Production Specialist for [facility] Fwd Exam Comprehensive Diagnoses CHF (congestive heart failure) I50.33 Heart failure chronicity: acute on chronic Heart failure type: diastolic COPD (chronic obstructive pulmonary disease) J44.1 COPD type: COPD with acute exacerbation Type 2 diabetes mellitus E11.628 Diabetes mellitus complication detail: with other skin complication Diabetes mellitus complication status: with skin complications Diabetes mellitus [place] [facility] insulin use: without [place] [facility] use PVD (peripheral vascular disease) I73.9 Hypertension I10 Hypertension type: essential hypertension Hyperlipidemia E78.5 Hyperlipidemia type: unspecified
[2019-06-20 11:52] LABS: Glucose Point of Care 426 mg/dL (70-110)
[2019-06-20] MEDS: metOLazone 5 MG Tablet 2.5 MG PO (12:24)
[2019-06-20] MEDS: FUROsemide 40 mg Tablet 60 MG PO (15:26)
[2019-06-20] MEDS: ammonium lactate lotion 226 gm Btl 1 APPLIC TOPICAL (17:35)
[2019-06-20 17:52] LABS: Glucose Point of Care 153 mg/dL (70-110)
[2019-06-20 21:42] LABS: Glucose Point of Care 171 mg/dL (70-110)
[2019-06-20] MEDS: atorvastatin 40 mg Tablet PO (21:58)
[2019-06-21] VITALS (16 sets, daily range): BP systolic 95–159; BP diastolic 44–78; PULSE 72–85; RESP 16–24; TEMP 36.6–37.3; O2SAT 88–97; BMI 36.0
[2019-06-21 06:44] LABS: Glucose Point of Care 207 mg/dL (70-110)
[2019-06-21] MEDS: ipratropium-albuterol 3 mL Neb INHALATION ×4 (07:44→22:49)
[2019-06-21] MEDS: budesonide 0.5 mg/2 mL Neb INHALATION ×2 (07:44→19:41)
[2019-06-21] MEDS: guaiFENesin 600 mg Tablet 1200 MG PO ×2 (08:34→18:02)
[2019-06-21] MEDS: amlodipine 10 mg Tablet PO (08:34)
[2019-06-21] MEDS: lisinopril 20 mg Tablet 40 MG PO (08:34)
[2019-06-21] MEDS: pantoprazole DR 40 mg Tablet PO (08:35)
[2019-06-21] MEDS: magnesium oxide 400 mg tablet PO ×2 (08:35→18:01)
[2019-06-21] MEDS: aspirin 81 mg EC Tablet PO (08:35)
[2019-06-21] MEDS: hyDRALAzine 50 mg Tablet PO ×2 (08:35→14:56)
[2019-06-21] MEDS: carvedilol 12.5 mg Tablet PO ×2 (08:35→18:01)
[2019-06-21] MEDS: FUROsemide 40 mg Tablet 60 MG PO (08:35)
[2019-06-21] MEDS: metOLazone 5 MG Tablet 2.5 MG PO (08:35)
[2019-06-21] MEDS: morphine 4 mg/mL SDV 1 mL 2 MG IVP ×2 (08:55→18:05)
[2019-06-21 11:41] LABS: Glucose Point of Care 314 mg/dL (70-110)
[2019-06-21] MEDS: ammonium lactate lotion 226 gm Btl 1 APPLIC TOPICAL ×2 (13:48→17:55)
--- NOTE | 2019-06-21 13:50 | P.PN_ITS ---
Subjective Subjective: Interval history: Oxygen requirement increased, now on 8 L high flow nasal cannula. Had urine output of 2050 mL overnight. Medications: Reviewed: Yes Medication Review Details: Active Medications Generic Name Dose Route Start Last Admin Trade Name Freq PRN Reason Stop Dose Admin Acetaminophen 650 mg 06/16/19 15:50 06/20/19 15:25 Tylenol PO 650 mg Q6H PRN Administration Mild/Mod Pain Or Temp >/= 101 Albuterol/Ipratrop ium 3 ml 06/17/19 08:39 06/21/19 07:44 Duoneb INHALATION 3 ml Q4H.RESPIRATORY P RN Administration SHORTNESS OF LEONELA TH Amlodipine Besylat e 10 mg 06/17/19 09:00 06/21/19 08:34 Norvasc PO 10 mg DAILY PRADIP Administration Aspirin 81 mg 06/17/19 09:00 06/21/19 08:35 Aspirin Ec PO 81 mg DAILY PRADIP Administration Atorvastatin Calci um 40 mg 06/16/19 21:00 06/20/19 21:58 Lipitor PO 40 mg BEDTIME PRADIP Administration Budesonide 0.5 mg 06/16/19 20:00 06/21/19 07:44 Pulmicort INHALATION 0.5 mg BID.RESPIRATORY S CH Administration Carvedilol 12.5 mg 06/16/19 18:00 06/21/19 08:35 Coreg PO 12.5 mg BID PRADIP Administration Dextrose 25 ml 06/16/19 15:50 D50w IVP ONCE PRN hypoglycemia prot ocol Protocol Dextrose 50 ml 06/16/19 15:50 D50w IVP PRN PRN hypoglycemia prot ocol Protocol Furosemide 60 mg 06/20/19 16:00 06/21/19 08:35 Lasix PO 60 mg DAILY@0800 PRADIP Administration Glucagon 1 mg 06/16/19 15:50 Glucagen IM ONCE PRN Adult Acute Hypog lycemia Prot. Protocol Guaifenesin 1,200 mg 06/19/19 18:00 06/21/19 08:34 Mucinex PO 1,200 mg BID PRADIP Administration Heparin Sodium (Be ef Lung) 5,000 unit 06/16/19 16:00 06/21/19 06:51 Heparin SUBCUT Not Given Q12H PRADIP Hydralazine HCl 50 mg 06/16/19 21:00 06/21/19 08:35 Apresoline PO 50 mg TID PRADIP Administration Dextrose 500 mls @ 100 mls /hr 06/16/19 15:50 D5w IV ONCE PRN Adult Acute Hypog lycemia Prot Protocol Insulin Aspart 0 unit 06/16/19 18:00 06/21/19 12:40 Novolog SUBCUT 12 unit WM&BEDTIME PRADIP Administration Protocol Insulin Aspart 10 unit 06/20/19 17:00 06/21/19 12:36 Novolog SUBCUT Not Given TIDAC PRADIP Lactic Acid 1 applic 06/20/19 18:00 06/21/19 13:48 Lac-Hydrin TOPICAL 1 applic BID PRADIP Administration Lisinopril 40 mg 06/17/19 11:50 06/21/19 08:34 Prinivil PO 40 mg DAILY PRADIP Administration Magnesium Oxide 400 mg 06/16/19 18:00 06/21/19 08:35 Magox PO 400 mg BID PRADIP Administration Metolazone 2.5 mg 06/20/19 11:25 06/21/19 08:35 Zaroxolyn PO 2.5 mg DAILY PRADIP Administration Morphine Sulfate 2 mg 06/16/19 15:50 06/21/19 08:55 Morphine IVP 2 mg Q4H PRN Administration SEVERE PAIN Ondansetron HCl 4 mg 06/16/19 15:50 Zofran IVP Q6H PRN vomiting, or N/V if npo Pantoprazole Sodiu m 40 mg 06/17/19 09:00 06/21/19 08:35 Protonix PO 40 mg DAILY PRADIP Administration Tizanidine HCl 4 mg 06/16/19 15:55 06/20/19 15:25 Zanaflex PO 4 mg TID PRN Administration SPASMS No Known Allergies Allergy (Verified 06/16/19 11:38) Vitals/I&O/Wt Last Vital Signs Temp 98.5 F 06/21/19 11:50 Pulse 80 06/21/19 11:50 Resp 19 H 06/21/19 11:50 BP 150/72 06/21/19 11:50 Pulse Ox 94 06/21/19 11:50 06/20/19 06/21/19 06/21/19 22:59 06:59 14:59 Intake Total 730 / 1730 360 / 360 Output Total 1600 / 2150 1500 / 3650 900 / 900 Balance -870 / -420 -1500 / -1920 -540 / -540 Weight last 48 hrs Weight 110.677 kg Weight 110.677 kg Weight 113.398 kg Weight 108.976 kg Physical Exam Const: COMMON NORMALS: no apparent distress, oriented x3 and alert GENERAL APPEARANCE: cooperative, comfortable and disheveled NUTRITIONAL APPEARANCE: obese morbidly obese ORIENTATION/CONSCIOUSNESS: Yes awake HENMT: COMMON NORMALS: normocephalic, head/scalp atraumatic and hearing grossly normal bilaterally HEAD & SCALP: normocephalic and atraumatic MOUTH: moist mucous membranes abnormal Details: parched TEETH & GINGIVA: Yes dentures Eye: COMMON NORMALS: PERRL, EOMs intact bilaterally and conjunctivae normal CONJUNCTIVA: Yes conjunctivae normal PUPIL: Yes PERRL Neck/C-Spine: COMMON NORMALS: full ROM GENERAL: Yes normal visual inspection and Yes trachea midline OTHER: -short, thick neck Resp: COMMON NORMALS: no retractions and no use of accessory muscles EFFORT & INSPECTION: Yes able to speak in complete sentences, Yes symmetric chest movement and No tachypneic AUSCULTATION: crackles and diminished lung sounds bilateral OTHER: -on 8 L NC Cardio: COMMON NORMALS: regular rate, regular rhythm, S1 normal heart sound, S2 normal heart sound and no murmurs RATE: regular rate RHYTHM: regular rhythm HEART SOUNDS: S1 normal and S2 normal GI: COMMON NORMALS: normal to inspection, nondistended, normoactive bowel sounds, soft to palpation and non-tender INSPECTION: Yes abdominal distension and Yes central obesity PALPATION: Yes soft, No tender, No guarding and No rigid Back/Pelvis: COMMON NORMALS: thoracic and lumbar spine normal to inspection Extremity: COMMON NORMALS: normal to inspection, full ROM and no pedal edema GENERAL: Yes edema (trace pitting edema of bilateral LE) Neuro: COMMON NORMALS: oriented x3, moves all extremities, no focal motor deficits and no sensory deficits noted SENSORIUM/ORIENTATION: Yes alert Psych: COMMON NORMALS: mental status grossly normal, thought process normal, cooperative, affect normal and speech normal APPEARANCE: Yes unkempt and Yes disheveled SPEECH: Yes normal speech THOUGHT PROCESS: normal thought process Skin: COMMON NORMALS: no jaundice, no petechiae and no mottling OTHER: - previously noted venous stasis dermatitis of bilateral LEs; known venous ulcerations of RLE (clean/dry dressing in place) Data : 06/20/19 04:45 06/20/19 04:45 A&P Assessment and plan (1) CHF (congestive heart failure): -Acute diastolic CHF exacerbation as evidenced by noted BNP elevation of greater than 4000, hypoxia, dyspnea with exertion, lower extremity edema -Echo done during most recent admission showed an ejection fraction of 55%, this was a poor study -off IV diuresis with Bumex; titrate dose to optimize diuresis; has diuresed 2.6 L so far. Better compensated, switched to oral Lasix and added Metolazone -BiPAP as needed -Daily weights, monitor ins and outs -continue to monitor renal function and electrolytes with diuresis -It is unclear how compliant patient was with his medication regimen as he is unaware of what his medications actually are -CT chest shows bilateral pleural effusions -noted spikes in BP, continue to monitor vital signs -Telemetry monitoring -d/c fluid restriction (1500 mL/24 hrs) Status: Acute Qualifiers: Heart failure type: diastolic Heart failure chronicity: acute on chronic Qualified Code(s): I50.33 - Acute on chronic diastolic (congestive) heart failure Code(s): I50.9 - Heart failure, unspecified (2) COPD (chronic obstructive pulmonary disease): -Has known oxygen dependent COPD, 4 L at rest, 6 L with exertion. Increased oxygen requirement today -Noted increased respiratory effort -Previously treated for pneumonia with course of Levaquin -Chest x-ray shows resolution of right lower lobe infiltrates, evidence of pulmonary fibrosis in bilateral lower lobes. Repeat CXR (06/18) shows small bilateral pleural effusions with subsegmental atelectasis in the right greater than left -decreased leukocytosis, had been discharged on steroids though would have completed the course by now -Supplemental oxygen as needed, will try to wean to baseline requirement if possible -Close monitoring of respiratory status -Received IV steroids in ER -Would hold off on antibiotic treatment at this time as clinical picture not entirely convincing for infection -added flutter valve and mucinex as expectorant Status: Acute Qualifiers: COPD type: COPD with acute exacerbation Qualified Code(s): J44.1 - Chronic obstructive pulmonary disease with (acute) exacerbation Code(s): J44.9 - Chronic obstructive pulmonary disease, unspecified (3) Type 2 diabetes mellitus: -Has known history of [id number] diabetes, last A1c was 9.1 -hold metformin, on ISS -Accu-Cheks, hypoglycemia precautions -Consistent carb and cardiac diet as tolerated Status: Chronic Qualifiers: Diabetes mellitus intermediate frame tender insulin use: without custodial use Diabetes mellitus complication status: with skin complications Diabetes mellitus complication detail: with other skin complication Qualified Code(s): E11.628 - Type 2 diabetes mellitus with other skin complications Code(s): E11.9 - Type 2 diabetes mellitus without complications (4) PVD (peripheral vascular disease): -Has known history of PVD with noted venous ulcerations on bilateral lower extremities, had been seen by Dr. Fan -Continue wound care as needed -Arterial studies showing severe PAD with abnormal ABIs noted -Was referred to Dr. Martinez for evaluation of peripheral vascular disease Status: Chronic Code(s): I73.9 - Peripheral vascular disease, unspecified (5) Hypertension: -noted spikes in BP, otherwise hemodynamically stable, continue to monitor vital signs -continue oral antihypertensives, resumed SANJAY inhibitor as renal function at baseline Status: Chronic Qualifiers: Hypertension type: essential hypertension Qualified Code(s): I10 - Essential (primary) hypertension Code(s): I10 - Essential (primary) hypertension (6) Hyperlipidemia: -continue statin Status: Chronic Qualifiers: Hyperlipidemia type: unspecified Qualified Code(s): E78.5 - Hyperlipidemia, unspecified Code(s): E78.5 - Hyperlipidemia, unspecified Additional A&P Information -Morbid obesity: BMI-37 kg/m2 -Chronic smoker -GERD -remote hx of brain tumor s/p MAGNETIC GRINDER OPERATOR shunt -Anxiety -possible aortic stenosis; may need further evaluation with CAITLYN -CKD stage 2; baseline Cr seems to be around 1.2 -Polycythemia; received 500 mL phlebotomy during last admission; stable H/H -GI ppx with PPI -DVT ppx with heparin -PT evaluation due to noted difficulty with ambulation -Dispo: home with continued HH services -Code status: FULL code Attestations Medical Necessity Statement*: Patient requires hospitalization for continued management of acute COPD exacerbation, noted increased oxygen requirement. Time Spent in Patient Care: Greater than 35 minutes (>than 50% of time spent in counselling and/or direct pt care on unit) . Coding Level of Care Code Acute Bakery Technician for [facility] Fwd Diagnoses CHF (congestive heart failure) I50.33 Heart failure type: diastolic Heart failure chronicity: acute on chronic COPD (chronic obstructive pulmonary disease) J44.1 COPD type: COPD with acute exacerbation Type 2 diabetes mellitus E11.628 Diabetes mellitus custodial insulin use: without custodial use Diabetes mellitus complication status: with skin complications Diabetes mellitus complication detail: with other skin complication PVD (peripheral vascular disease) I73.9 Hypertension I10 Hypertension type: essential hypertension Hyperlipidemia E78.5 Hyperlipidemia type: unspecified
--- NOTE | 2019-06-21 14:10 | PC.SOCIAL ---
IMM Updated Page 2 of IMM updated and given to patient. Initialed, dated, and timed and placed back in chart.
[2019-06-21] MEDS: heparin 5,000 unit/mL INJ 1 mL 5000 UNIT SUBCUT (15:01)
[2019-06-21 16:35] LABS: Glucose Point of Care 216 mg/dL (70-110)
[2019-06-21 21:06] LABS: Glucose Point of Care 169 mg/dL (70-110)
[2019-06-21] MEDS: atorvastatin 40 mg Tablet PO (22:01)
[2019-06-22] VITALS (20 sets, daily range): BP systolic 82–135; BP diastolic 48–75; PULSE 69–91; RESP 16–28; TEMP 36.5–37.1; O2SAT 83–99
[2019-06-22] MEDS: ipratropium-albuterol 3 mL Neb INHALATION ×6 (02:33→23:10)
[2019-06-22] MEDS: heparin 5,000 unit/mL INJ 1 mL 5000 UNIT SUBCUT ×2 (04:44→18:24)
[2019-06-22 06:54] LABS: Glucose Point of Care 196 mg/dL (70-110)
[2019-06-22] MEDS: amlodipine 10 mg Tablet PO (08:32)
[2019-06-22] MEDS: lisinopril 20 mg Tablet 40 MG PO (08:32)
[2019-06-22] MEDS: metOLazone 5 MG Tablet 2.5 MG PO (08:33)
[2019-06-22] MEDS: carvedilol 12.5 mg Tablet PO ×2 (08:34→22:14)
[2019-06-22] MEDS: magnesium oxide 400 mg tablet PO ×2 (08:34→18:24)
[2019-06-22] MEDS: hyDRALAzine 25 mg Tablet PO ×2 (08:34→22:14)
[2019-06-22] MEDS: FUROsemide 40 mg Tablet 60 MG PO (08:34)
[2019-06-22] MEDS: guaiFENesin 600 mg Tablet 1200 MG PO ×2 (08:34→18:24)
[2019-06-22] MEDS: pantoprazole DR 40 mg Tablet PO (08:35)
[2019-06-22] MEDS: aspirin 81 mg EC Tablet PO (08:35)
[2019-06-22] MEDS: ammonium lactate lotion 226 gm Btl 1 APPLIC TOPICAL ×2 (08:36→18:24)
[2019-06-22] MEDS: budesonide 0.5 mg/2 mL Neb INHALATION ×2 (08:41→19:58)
[2019-06-22] MEDS: acetaminophen 325 mg Tablet 650 MG PO (08:43)
[2019-06-22] MEDS: tizanidine 4 mg Tablet PO (08:43)
--- NOTE | 2019-06-22 12:55 | CTR_ITS ---
PROCEDURE INFORMATION: Exam: CT Chest Without Contrast Exam date and time: 06/22/2019 1:08 PM Age: 59 years old Clinical indication: Shortness of breath; Prior surgery; Surgery date: 6+ months; Surgery type: Shunt; Patient HX: Copd/chf/sob; Additional info: Pna/chf TECHNIQUE: Imaging protocol: Computed tomography of the chest without contrast. Total DLP: 1027.85 mGy-cm Radiation optimization: All CT scans at this facility use at least one of these dose optimization techniques: automated exposure control; mA and/or kV adjustment per patient size (includes targeted exams where dose is matched to clinical indication); or iterative reconstruction. COMPARISON: CT chest wo con [id number] 06/16/2019 1:55 PM FINDINGS: Lungs: There interval increase of streaky opacities within the lower lobes right greater than left with a few scattered air bronchograms. There is a streaky opacity within the right middle lobe. There are a few ground-glass opacities within the right middle and right lower lobes. There is linear atelectasis versus scarring within the lingula. Pleural space: There are small unchanged bilateral pleural effusions. No pneumothorax. Heart: No cardiomegaly. There is small amount of unchanged pericardial fluid anteriorly, which measures up to 6 mm. Aorta: No aortic aneurysm. Great vessels off aortic arch: Atherosclerotic calcifications are pesent within the aorta, branch and coronary vessels. Lymph nodes: Calcified perihilar lymph nodes are noted. Kidneys and ureters: Partially imaged 4.4 cm simple appearing left renal cyst is noted. Bones/joints: Multiple old healed rib fractures are again noted. There are degenerative changes of the spine and glenohumeral joints. There are no acute osseous findings. Soft tissues: Unremarkable. CT/CT chest wo con [id number] IMPRESSION: 1. Interval progression of streaky opacities within the right middle and bilateral lower lobes right greater than left with a few small air bronchograms. There are a few ground-glass opacities within the right middle and right lower lobes. Constellation of findings most commonly reflect nonspecific inflammatory or infectious change. Consider follow-up evaluation in 4-6 weeks to assess for resolution. 2. Small unchanged bilateral pleural effusions, which may reflect a component of CHF. 3. Additional stable findings as detailed above. Radiation Dose CTDIVOL = (mGy): DLP = 1027.85 (mGy-cm)
[2019-06-22 14:02] LABS: Glucose Point of Care 115 mg/dL (70-110)
[2019-06-22 14:25] LABS: Basophils % 0.3 %; Eosinophils # 0.2 10^3/uL (0.0-0.8); Hematocrit 46.2 % (42.0-52.0); Hemoglobin 15.3 g/dL (11.7-16.6); Lymphocytes # 1.3 10^3/uL (0.8-4.8); Lymphocytes % 11.9 %; Mean Corpuscular HGB Conc 33.1 g/dL (30.0-36.0); Mean Corpuscular Hemoglobin 32.1 pg (28.0-34.0); Mean Corpuscular Volume 97.1 fL (80-94); Mean Platelet Volume 10.1 fL (7.4-10.4); Monocytes # 1.2 10^3/uL (0.2-0.9); Monocytes % 11.2 %; Neutrophils # 7.8 10^3/uL (1.8-7.7); Neutrophils % 73.1 %; Nucleated Red Blood Cells % 0 %; Platelet Count 203 10^3/cmm (130-400); Red Blood Count 4.76 10^6/uL (4.1-5.3); Red Cell Distribution Width 12.1 % (12.1-15.1); White Blood Count 10.6 10^3/uL (4.0-10.0)
[2019-06-22 14:49] LABS: NT Pro B Type Natriuretic Pept 1561 pg/mL (0-125); Procalcitonin 0.33 ng/mL (0-0.5)
[2019-06-22 15:00] LABS: Alanine Aminotransferase 44 U/L (0-41); Albumin Level 2.3 g/dL (3.5-5.2); Alkaline Phosphatase 60 IU/L (40-130); Anion Gap 13.6 (5-19); Aspartate Amino Transferase 30 U/L (0-40); Blood Urea Nitrogen 25 mg/dL (8-23); Calcium 8.3 mg/dL (8.5-10.5); Carbon Dioxide 37 mmol/L (22-29); Chloride 83 mmol/L (98-107); Globulin 3.3 g/dL (1.3-4.6); Glomerular Filtration Rate 61.6 mL/min (90-130); Glucose 301 mg/dL (65-115); Potassium 3.6 mmol/L (3.5-5.1); Sodium 130 mmol/L (136-145); Total Bilirubin 0.5 mg/dL (0.15-1.2); Total Protein 5.6 g/dL (6.6-8.7)
[2019-06-22 17:23] LABS: Glucose Point of Care 240 mg/dL (70-110)
--- NOTE | 2019-06-22 18:31 | PM.PN ---
Subjective Subjective: Interval history: Labs noted. Oxygen requirements have continued to increase and today patient is on high flow. Patient is complaining of cough with expectoration. Expectoration is mildly blood-tinged. Patient is complaining of shortness of breath on exertion. Denies of having any nausea, vomiting is able to tolerate his diet well. Vitals/I&O/Wt Last Vital Signs Temp 97.7 F 06/22/19 15:24 Pulse 71 06/22/19 17:47 Resp 24 H 06/22/19 17:47 BP 108/64 06/22/19 15:24 Pulse Ox 90 06/22/19 17:47 06/22/19 06/22/19 06/22/19 06:59 14:59 22:59 Output Total 900 / 1800 700 / 700 Balance -900 / -960 -700 / -700 Weight last 48 hrs Weight 110.677 kg Weight 110.677 kg Physical Exam Narrative: EXAM NARRATIVE: General: Acute distress because of shortness of breath, AO x3 HEENT: PERRLA, pupils bilaterally equal and reactive Chest: Bilateral rhonchi present all over the lung [place], right more than left, good air entry bilaterally CVS: S1-S2 regular, no murmurs, no tachycardia, no gallops, no rubs Abdomen: Obese, soft, nontender, no organomegaly, bowel sounds present Neuro: No focal deficits, no facial deformity, AO x3, power 5/5 in all limbs Data : 06/22/19 14:05 06/22/19 14:05 A&P Assessment and plan (1) Hypoxia: Status: Acute Code(s): R09.02 - Hypoxemia (2) Pneumonia: Status: Acute Code(s): J18.9 - Pneumonia, unspecified organism (3) Heart failure with preserved ejection fraction: Status: Acute Code(s): I50.30 - Unspecified diastolic (congestive) heart failure (4) COPD (chronic obstructive pulmonary disease): Status: Acute Qualifiers: COPD type: COPD with acute exacerbation Qualified Code(s): J44.1 - Chronic obstructive pulmonary disease with (acute) exacerbation Code(s): J44.9 - Chronic obstructive pulmonary disease, unspecified (5) Type 2 diabetes mellitus: Status: Chronic Qualifiers: Diabetes mellitus termite control servicer insulin use: without fci use Diabetes mellitus complication status: with skin complications Diabetes mellitus complication detail: with other skin complication Qualified Code(s): E11.628 - Type 2 diabetes mellitus with other skin complications Code(s): E11.9 - Type 2 diabetes mellitus without complications (6) PVD (peripheral vascular disease): -Has known history of PVD with noted venous ulcerations on bilateral lower extremities, had been seen by Dr. Fan -Continue wound care as needed -Arterial studies showing severe PAD with abnormal ABIs noted -Was referred to Dr. Martinez for evaluation of peripheral vascular disease Status: Chronic Code(s): I73.9 - Peripheral vascular disease, unspecified (7) Hypertension: -noted spikes in BP, otherwise hemodynamically stable, continue to monitor vital signs -continue oral antihypertensives, resumed SANJAY inhibitor as renal function at baseline Status: Chronic Qualifiers: Hypertension type: essential hypertension Qualified Code(s): I10 - Essential (primary) hypertension Code(s): I10 - Essential (primary) hypertension (8) Hyperlipidemia: -continue statin Status: Chronic Qualifiers: Hyperlipidemia type: unspecified Qualified Code(s): E78.5 - Hyperlipidemia, unspecified Code(s): E78.5 - Hyperlipidemia, unspecified Additional A&P Information Hypoxic respiratory failure: Multifactorial: Patient's oxygen requirement has been going up. Patient in no has been treated for CHF exacerbation and COPD exacerbation. Given worsening will repeat CT chest without contrast. Patient's neighbor in the room is being treated empirically for influenza with Tamiflu. Check procalcitonin, proBNP, CT chest without contrast, repeat flu swab, check respiratory viral panel. We will start patient empirically on vancomycin, Zosyn at renal dose. Start patient on Tamiflu 75 mg twice daily due to severe comorbidities patient is at high risk for developing flu especially given the fact that patient's neighbor is being treated empirically as well. Check sputum culture Gram stain. \ For CHF: Patient looks euvolemic. Continue with oral dose of Lasix and metolazone. Strict intake and output charting. Daily weights. BiPAP as needed. Continue oxygen supplementation keeping saturation over 92%. Telemetry monitoring. For COPD: Patient is on prednisone night so we will continue that. Start patient on DuoNebs every 4 hours as needed. Start patient on methylprednisolone 60 every 6 hours. Type 2 diabetes mellitus: A1c 9.1. Insulin sliding scale at low protocol. Carb consistent diet. Hypertension: Patient's blood pressure is running on the softer side today. Patient was again recently started back on his SANJAY inhibitor's. We will hold off on lisinopril for now. Continue amlodipine 10 mg, hydralazine 25 mg 3 times daily, Coreg 12.5 mg twice daily. Patient has a history of difficult to control hypertension in the past. Peripheral vascular disease: Continue with aspirin, statins. 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 -Anxiety -possible aortic stenosis; may need further evaluation with CAITLYN -CKD stage 2; baseline Cr seems to be around 1.2 -Polycythemia; received 500 mL phlebotomy during last admission; stable H/H -GI ppx with PPI -DVT ppx with heparin -Dispo: Depending on patient's further clinical course will have to decide between SNF versus home with continued HH services -Code status: FULL code Attestations Medical Necessity Statement*: Hypoxic respiratory failure Time Spent in Patient Care: Greater than 35 minutes Coding Level of Care Code Acute Methods Time Analyst for [facility] Diagnoses Hypoxia R09.02 Pneumonia J18.9 Heart failure with preserved ejection fraction I50.30 COPD (chronic obstructive pulmonary disease) J44.1 COPD type: COPD with acute exacerbation Type 2 diabetes mellitus E11.628 Diabetes mellitus fci insulin use: without termite control servicer use Diabetes mellitus complication status: with skin complications Diabetes mellitus complication detail: with other skin complication PVD (peripheral vascular disease) I73.9 Hypertension I10 Hypertension type: essential hypertension Hyperlipidemia E78.5 Hyperlipidemia type: unspecified
--- NOTE | 2019-06-22 18:49 | PC.PHAR ---
Pharmacokinetic dosing service Date: 06/22/19 Time: 1899 Objective: Patient: Corey Rushing Floor: 276-2 Age: 59 yo Serum creatinine: 1.2 mg/dL Height: 69.0 Inches Weight (kg): 110.677 Diagnosis: Relevant medical/social history: Cultures and sensitivities: Other labs: Assessment: IBW (kg): 70.70 Dosing wt(kg): 110.677 Estimated Creatinine clearance (ml/min): 64.6 CRCL method: Cockcroft and Gault using ibw(default). Drug selected: Vancomycin Loading dose (mg): 0 Vd (liters): 99.6 (factor used: 0.9 L/kg) Chris (hr-1): 0.058 Half life (hrs): 11.95 Recommended dose: 2000 mg Interval: 18 hrs Infusion time (hrs): 1.5 Predicted peak (mcg/mL): 29.7 Predicted trough (mcg/mL): 11.41 Total body weight is being used for vancomycin dosing. Renal function is stable [ ] /unstable [ ] Recommendations: Give Vancomycin 2000 mg q 18 hrs with an expected Cpeak of 29.7 mcg/ml and an expected Ctrough of 11.41 mcg/ml Renal dosing of other antibiotics (review renal dosing of other medications and list guidelines here): Thank you for the consult, will continue to follow. Signature: Bruna Johnson [facility]
[2019-06-22 20:39] LABS: Influenza A by IFA Negative (Negative); Influenza B by IFA Negative (Negative)
[2019-06-22 21:25] LABS: Glucose Point of Care 149 mg/dL (70-110)
[2019-06-22] MEDS: atorvastatin 40 mg Tablet PO (22:13)
[2019-06-22] MEDS: piperacillin-tazobactam 3.375 GM in sodium chloride 0.9% (plus) 50 ML IV (22:14)
[2019-06-23] VITALS (26 sets, daily range): BP systolic 100–152; BP diastolic 54–70; PULSE 63–85; RESP 10–42; TEMP 36.7–37.8; O2SAT 73–95; BMI 36.0
[2019-06-23 00:35] LABS: Glucose Point of Care 251 mg/dL (70-110)
[2019-06-23 00:40] LABS: Glucose Point of Care 99 mg/dL (70-110)
[2019-06-23] MEDS: ipratropium-albuterol 3 mL Neb INHALATION ×5 (03:06→20:19)
[2019-06-23 03:19] LABS: ABG PH Result 7.42 (7.35-7.45); Arterial Blood Gas Hematocrit 48.1 % (42-52); Base Excess ABG 13.2 mmol/L (-2.0-2.0); Blood Gas Allen Test Pos; Blood Gas Sample Site Radial, right; Blood Gas Sample Type Arterial; HCO3 ABG 41.2 mmol/L (22-26); Oxygen Device BIPAP; PO2 ABG 85.9 mmHg (80.0-100.0)
[2019-06-23 03:20] LABS: ABG PCO2 63.8 mmHg (35-45)
[2019-06-23] MEDS: piperacillin-tazobactam 3.375 GM in sodium chloride 0.9% (plus) 50 ML IV ×3 (04:47→18:08)
[2019-06-23] MEDS: heparin 5,000 unit/mL INJ 1 mL 5000 UNIT SUBCUT ×2 (04:48→15:52)
[2019-06-23 05:43] LABS: Basophils % 0.2 %; Eosinophils # 0.2 10^3/uL (0.0-0.8); Eosinophils % 1.8 %; Hematocrit 47.7 % (42.0-52.0); Hemoglobin 15.5 g/dL (11.7-16.6); Lymphocytes # 1.1 10^3/uL (0.8-4.8); Mean Corpuscular HGB Conc 32.5 g/dL (30.0-36.0); Mean Corpuscular Hemoglobin 30.6 pg (28.0-34.0); Mean Corpuscular Volume 94.3 fL (80-94); Mean Platelet Volume 10.1 fL (7.4-10.4); Monocytes # 1.3 10^3/uL (0.2-0.9); Neutrophils # 9.8 10^3/uL (1.8-7.7); Neutrophils % 77.7 %; Nucleated Red Blood Cells % 0 %; Platelet Count 235 10^3/cmm (130-400); Red Blood Count 5.06 10^6/uL (4.1-5.3); Red Cell Distribution Width 12.1 % (12.1-15.1); White Blood Count 12.6 10^3/uL (4.0-10.0)
[2019-06-23 06:09] LABS: Alanine Aminotransferase 48 U/L (0-41); Albumin Level 2.6 g/dL (3.5-5.2); Alkaline Phosphatase 64 IU/L (40-130); Anion Gap 15.9 (5-19); Aspartate Amino Transferase 38 U/L (0-40); Blood Urea Nitrogen 30 mg/dL (8-23); Calcium 8.6 mg/dL (8.5-10.5); Carbon Dioxide 37 mmol/L (22-29); Chloride 86 mmol/L (98-107); Globulin 3.3 g/dL (1.3-4.6); Glomerular Filtration Rate 56.1 mL/min (90-130); Glucose 185 mg/dL (65-115); Potassium 3.9 mmol/L (3.5-5.1); Sodium 135 mmol/L (136-145); Total Bilirubin 0.6 mg/dL (0.15-1.2); Total Protein 5.9 g/dL (6.6-8.7)
[2019-06-23 06:35] LABS: Glucose Point of Care 161 mg/dL (70-110)
[2019-06-23] MEDS: budesonide 0.5 mg/2 mL Neb INHALATION ×2 (08:18→20:19)
[2019-06-23] MEDS: carvedilol 12.5 mg Tablet PO ×2 (09:49→18:30)
[2019-06-23] MEDS: pantoprazole DR 40 mg Tablet PO (09:49)
[2019-06-23] MEDS: guaiFENesin 600 mg Tablet 1200 MG PO ×2 (09:50→18:08)
[2019-06-23] MEDS: magnesium oxide 400 mg tablet PO ×2 (09:50→18:06)
[2019-06-23] MEDS: oseltamivir phosphate 75 mg Capsule PO ×2 (09:50→18:40)
[2019-06-23] MEDS: aspirin 81 mg EC Tablet PO (09:50)
[2019-06-23] MEDS: sodium chloride 0.9% 1,000 ML 75 ML IV (09:59)
--- NOTE | 2019-06-23 10:48 | PC.NURSE ---
recd from 2 south per bed on 100% nrb. r
--- NOTE | 2019-06-23 11:24 | PC.SOCIAL ---
IMM Updated Updated pt on Pg 2 IMM. Pt verbally understands, no questions voiced. Provided pt with a copy & left on pt's bedside table. Signed, dated, & timed original in chart.
[2019-06-23 11:54] LABS: Glucose Point of Care 262 mg/dL (70-110)
--- NOTE | 2019-06-23 13:28 | PM.PN ---
Subjective Subjective: Interval history: Labs noted. Patient's oxygen requirement has continued to go up overnight. Was placed on BiPAP because of hypoxia early in the morning. ABG noted to have hypoxia as well. On evaluation patient is saturating 88% on BiPAP ventilation of 100%. Patient is awake alert oriented x3 and is asking questions regarding his breathing. He states he is not tired but is having cough, expectoration. Denies of having any chest pain. Discussed in detail regarding the critical condition of his illness and ARDS along with causes and etiology of his condition. Patient states he understands was going on. Also discussed regarding a possible intubation to which he states he is agreeable if required. His brother would be his D POA. Vitals/I&O/Wt Last Vital Signs Temp 99.1 F 06/23/19 10:31 Pulse 71 06/23/19 11:27 Resp 22 H 06/23/19 11:25 BP 122/54 06/23/19 11:00 Pulse Ox 89 L 06/23/19 11:25 06/22/19 06/23/19 06/23/19 22:59 06:59 14:59 Intake Total 290 / 290 240 / 530 50 / 50 Output Total 700 / 700 850 / 1550 Balance -410 / -410 -610 / -1020 50 / 50 Weight last 48 hrs Weight 110.677 kg Physical Exam Narrative: EXAM NARRATIVE: General: Acute distress because of shortness of breath, AO x3 HEENT: PERRLA, pupils bilaterally equal and reactive Chest: Coarse breath sounds present all over the lung field, anterior more than posterior , right more than left, good air entry bilaterally CVS: S1-S2 regular, no murmurs, no tachycardia, no gallops, no rubs Abdomen: Obese, soft, nontender, no organomegaly, bowel sounds present Neuro: No focal deficits, no facial deformity, AO x3, power 5/5 in all limbs Data : 06/23/19 05:20 06/23/19 05:20 A&P Assessment and plan (1) ARDS (adult respiratory distress syndrome): Status: Acute Code(s): J80 - Acute respiratory distress syndrome (2) Hypoxia: Status: Acute Code(s): R09.02 - Hypoxemia (3) Pneumonia: Status: Acute Code(s): J18.9 - Pneumonia, unspecified organism (4) Heart failure with preserved ejection fraction: Status: Acute Code(s): I50.30 - Unspecified diastolic (congestive) heart failure (5) COPD (chronic obstructive pulmonary disease): Status: Acute Qualifiers: COPD type: COPD with acute exacerbation Qualified Code(s): J44.1 - Chronic obstructive pulmonary disease with (acute) exacerbation Code(s): J44.9 - Chronic obstructive pulmonary disease, unspecified (6) Type 2 diabetes mellitus: Status: Chronic Qualifiers: Diabetes mellitus termite treater helper insulin use: without termite treater helper use Diabetes mellitus complication status: with skin complications Diabetes mellitus complication detail: with other skin complication Qualified Code(s): E11.628 - Type 2 diabetes mellitus with other skin complications Code(s): E11.9 - Type 2 diabetes mellitus without complications (7) PVD (peripheral vascular disease): -Has known history of PVD with noted venous ulcerations on bilateral lower extremities, had been seen by Dr. Fan -Continue wound care as needed -Arterial studies showing severe PAD with abnormal ABIs noted -Was referred to Dr. Martinez for evaluation of peripheral vascular disease Status: Chronic Code(s): I73.9 - Peripheral vascular disease, unspecified (8) Hypertension: Status: Chronic Qualifiers: Hypertension type: essential hypertension Qualified Code(s): I10 - Essential (primary) hypertension Code(s): I10 - Essential (primary) hypertension (9) Hyperlipidemia: -continue statin Status: Chronic Qualifiers: Hyperlipidemia type: unspecified Qualified Code(s): E78.5 - Hyperlipidemia, unspecified Code(s): E78.5 - Hyperlipidemia, unspecified Additional A&P Information ARDS: Multifactorial: Patient's oxygen requirement has been going up. Patient has been treated for CHF exacerbation and COPD exacerbation. CT done yesterday. Results appreciated. Move patient to ICU for significant ARDS. From the blood work requested yesterday procalcitonin mildly elevated as compared to before, proBNP better than before, flu negative, respiratory viral panel results awaited. Sputum sample awaited. Continue with broad-spectrum antibiotics of vancomycin and Zosyn both renally dosed along with Tamiflu. Tamiflu has been started empirically as patient's neighbor on the second floor was being treated for influenza along with severe comorbidities and worsening respiratory status with the flu going around in the community it will be prudent to treat Mr. Ostertag as well. For CHF: Patient looks euvolemic. With creatinine mildly elevated today to 1.3 along with elevated BUN patient is looking a little bit on the skein yarn drier side because of poor oral intake. Hold off on further oral diuretic for today. Gentle IV hydration at 50 cc/h with normal saline for quantity of 1 L. Strict intake and output charting. Monitor for fluid overload. Daily weights. BiPAP as needed. Continue oxygen supplementation keeping saturation over 92%. Telemetry monitoring. For COPD: Continue with DuoNeb's, budesonide. Continue with methylprednisolone at current dose. Will not wean off for today. Start patient on Tessalon Perles 200 mg p.o. 3 times daily. Type 2 diabetes mellitus: A1c 9.1. Insulin sliding scale at low protocol. Carb consistent diet. Hypertension: Patient's blood pressure is running on the softer side today. Given soft blood pressure will hold off on amlodipine, hydralazine, lisinopril. We will continue on Coreg at current dose to avoid refractory tachycardia. Continue to monitor blood pressures. Peripheral vascular disease: Continue with aspirin, statins. -Morbid obesity: BMI-37 kg/m2 -Chronic smoker -GERD -remote hx of brain tumor s/p FUR DRUMMER shunt -Anxiety -possible aortic stenosis; may need further evaluation with CAITLYN -CKD stage 2; baseline Cr seems to be around 1.2 -Polycythemia; received 500 mL phlebotomy during last admission; stable H/H -GI ppx with PPI -DVT ppx with heparin -Dispo: Depending on patient's further clinical course will have to decide between SNF versus home with continued services -Code status: FULL code Discussed in detail with patient regarding critical nature of his illness along with severe ARDS. We discussed that patient is critically ill and might require intubation going down the line during this admission. Also discussed that we will try to avoid intubation as much as he can because patient will be a difficult extubation given his baseline respiratory status. Discussed the same with patient's brother on phone. They both verbalized understanding. Attestations Medical Necessity Statement*: ARDS Critical Care Time: Critical Care Time (min): 80 Coding Level of Care Code Acute Parquet Floor Layer'S Helper for [facility] Diagnoses ARDS (adult respiratory distress syndrome) J80 Hypoxia R09.02 Pneumonia J18.9 Heart failure with preserved ejection fraction I50.30 COPD (chronic obstructive pulmonary disease) J44.1 COPD type: COPD with acute exacerbation Type 2 diabetes mellitus E11.628 Diabetes mellitus correction insulin use: without termite treater helper use Diabetes mellitus complication status: with skin complications Diabetes mellitus complication detail: with other skin complication PVD (peripheral vascular disease) I73.9 Hypertension I10 Hypertension type: essential hypertension Hyperlipidemia E78.5 Hyperlipidemia type: unspecified
--- NOTE | 2019-06-23 14:13 | PC.NURSE ---
was up to [facility]. karen. well, some increased shortness of breath. 88-90%
[2019-06-23] MEDS: benzonatate 100 mg Capsule 200 MG PO ×2 (15:52→20:14)
--- NOTE | 2019-06-23 17:24 | PC.NURSE ---
will be kept npo at this time. for possible intubation per dr. wright.
[2019-06-23] MEDS: fluticasone nasal spray 16gm Btl 2 SPRAY NASAL (18:07)
[2019-06-23 19:54] LABS: Glucose Point of Care 313 mg/dL (70-110)
[2019-06-23 19:57] LABS: Glucose Point of Care 276 mg/dL (70-110)
[2019-06-23] MEDS: atorvastatin 40 mg Tablet PO (20:15)
--- NOTE | 2019-06-23 23:56 | PC.NURSE ---
Patient continues on Bipap. SpO2 at 88% sustained. Informed RT. RT to adjust mask and bipap settings. No distress observed.
[2019-06-24] VITALS (30 sets, daily range): BP systolic 127–175; BP diastolic 63–85; PULSE 59–89; RESP 10–32; TEMP 36.4–36.9; O2SAT 70–96
[2019-06-24] MEDS: ipratropium-albuterol 3 mL Neb INHALATION ×7 (00:40→23:27)
[2019-06-24] MEDS: piperacillin-tazobactam 3.375 GM in sodium chloride 0.9% (plus) 50 ML IV ×3 (01:46→18:35)
[2019-06-24] MEDS: heparin 5,000 unit/mL INJ 1 mL 5000 UNIT SUBCUT ×3 (01:46→20:11)
[2019-06-24 05:09] LABS: Basophils % 0.2 %; Hematocrit 44.9 % (42.0-52.0); Hemoglobin 14.8 g/dL (11.7-16.6); Lymphocytes # 0.5 10^3/uL (0.8-4.8); Lymphocytes % 5.6 %; Mean Corpuscular Hemoglobin 30.6 pg (28.0-34.0); Mean Corpuscular Volume 92.8 fL (80-94); Mean Platelet Volume 10.2 fL (7.4-10.4); Monocytes # 0.2 10^3/uL (0.2-0.9); Monocytes % 1.9 %; Neutrophils # 7.9 10^3/uL (1.8-7.7); Neutrophils % 88.9 %; Nucleated Red Blood Cells % 0 %; Platelet Count 247 10^3/cmm (130-400); Red Blood Count 4.84 10^6/uL (4.1-5.3); Red Cell Distribution Width 11.9 % (12.1-15.1); White Blood Count 8.9 10^3/uL (4.0-10.0)
[2019-06-24 05:38] LABS: Alanine Aminotransferase 40 U/L (0-41); Albumin Level 2.7 g/dL (3.5-5.2); Alkaline Phosphatase 58 IU/L (40-130); Anion Gap 16.5 (5-19); Aspartate Amino Transferase 21 U/L (0-40); Blood Urea Nitrogen 30 mg/dL (8-23); Calcium 8.2 mg/dL (8.5-10.5); Carbon Dioxide 33 mmol/L (22-29); Chloride 87 mmol/L (98-107); Creatinine Clr Calc Pharmacy 95.1191; Globulin 3.1 g/dL (1.3-4.6); Glucose 329 mg/dL (65-115); Potassium 3.5 mmol/L (3.5-5.1); Sodium 133 mmol/L (136-145); Total Bilirubin 0.4 mg/dL (0.15-1.2); Total Protein 5.8 g/dL (6.6-8.7)
[2019-06-24 06:03] LABS: Glucose Point of Care 352 mg/dL (70-110)
[2019-06-24] MEDS: budesonide 0.5 mg/2 mL Neb INHALATION ×2 (07:28→19:23)
[2019-06-24 07:44] LABS: ABG PCO2 48.7 mmHg (35-45); ABG PH Result 7.49 (7.35-7.45); Alveolar-Arterial Oxygen Gradi 301.2 mmHg (5-10); Arterial Blood Gas Hematocrit 47.9 % (42-52); Blood Gas Allen Test Pos; Blood Gas Sample Site Radial, right; Blood Gas Sample Type Arterial; Carboxyhemoglobin 0.5 %THgb (0.4-20.1); HCO3 ABG 37.3 mmol/L (22-26); HGB O2 Sat 90.6 % (95-100); Ionized Calcium Level - ABG 1.1 mmol/L (1.1-1.4); Methemoglobin 0.2 % (0.4-1.5); Oxygen Saturation ABG 91.2; Potassium Level - ABG 3.5 mmol/L (3.5-5.0); Total Hemoglobin 15.6 g/dL (14-18)
[2019-06-24 08:05] LABS: Vancomycin Trough 12.7 ug/mL (10-15)
[2019-06-24] MEDS: benzonatate 100 mg Capsule 200 MG PO ×3 (08:26→20:11)
[2019-06-24] MEDS: pantoprazole DR 40 mg Tablet PO (08:27)
[2019-06-24] MEDS: magnesium oxide 400 mg tablet PO ×2 (08:27→17:43)
[2019-06-24] MEDS: aspirin 81 mg EC Tablet PO (08:27)
[2019-06-24] MEDS: oseltamivir phosphate 75 mg Capsule PO ×2 (08:27→17:43)
[2019-06-24] MEDS: guaiFENesin 600 mg Tablet 1200 MG PO ×2 (08:27→17:43)
[2019-06-24] MEDS: carvedilol 12.5 mg Tablet PO ×2 (08:27→17:43)
[2019-06-24] MEDS: fluticasone nasal spray 16gm Btl 2 SPRAY NASAL ×2 (08:28→17:44)
[2019-06-24] MEDS: ammonium lactate lotion 226 gm Btl 1 APPLIC TOPICAL ×2 (08:29→17:44)
--- NOTE | 2019-06-24 10:41 | PC.NURSE ---
O2 sats 82%, Nasal prongs on high flow noted to be on pt's forehead. RT , at bedside, reapplid to proper position and encouraged pt to deep breath through nose. O2 Sats slowly recovering.
[2019-06-24 11:34] LABS: Glucose Point of Care 289 mg/dL (70-110)
--- NOTE | 2019-06-24 11:39 | P.PN_ITS ---
Subjective Subjective: Interval history: Labs noted. Patient moved to the ICU yesterday because of severe ARDS. He was maintained on high flow and intubation was avoided. His oxygen requirements are still high but improved since yesterday. On examination patient states he is extremely hungry states cough has improved liquid since yesterday. Denies of having any nausea, vomiting, dizziness, c onfusion. Labs noted. Input output noted. Medications: Reviewed: Yes Medication Review Details: Active Medications Generic Name Dose Route Start Last Admin Trade Name Freq PRN Reason Stop Dose Admin Acetaminophen 650 mg 06/16/19 15:50 06/20/19 15:25 Tylenol PO 650 mg Q6H PRN Administration Mild/Mod Pain Or Temp >/= 101 Albuterol/Ipratrop ium 3 ml 06/17/19 08:39 06/21/19 07:44 Duoneb INHALATION 3 ml Q4H.RESPIRATORY P RN Administration SHORTNESS OF LEONELA TH Amlodipine Besylat e 10 mg 06/17/19 09:00 06/21/19 08:34 Norvasc PO 10 mg DAILY PRADIP Administration Aspirin 81 mg 06/17/19 09:00 06/21/19 08:35 Aspirin Ec PO 81 mg DAILY PRADIP Administration Atorvastatin Calci um 40 mg 06/16/19 21:00 06/20/19 21:58 Lipitor PO 40 mg BEDTIME PRADIP Administration Budesonide 0.5 mg 06/16/19 20:00 06/21/19 07:44 Pulmicort INHALATION 0.5 mg BID.RESPIRATORY S CH Administration Carvedilol 12.5 mg 06/16/19 18:00 06/21/19 08:35 Coreg PO 12.5 mg BID PRADIP Administration Dextrose 25 ml 06/16/19 15:50 D50w IVP ONCE PRN hypoglycemia prot ocol Protocol Dextrose 50 ml 06/16/19 15:50 D50w IVP PRN PRN hypoglycemia prot ocol Protocol Furosemide 60 mg 06/20/19 16:00 06/21/19 08:35 Lasix PO 60 mg DAILY@0800 PRADIP Administration Glucagon 1 mg 06/16/19 15:50 Glucagen IM ONCE PRN Adult Acute Hypog lycemia Prot. Protocol Guaifenesin 1,200 mg 06/19/19 18:00 06/21/19 08:34 Mucinex PO 1,200 mg BID PRADIP Administration Heparin Sodium (Be ef Lung) 5,000 unit 06/16/19 16:00 06/21/19 06:51 Heparin SUBCUT Not Given Q12H PRADIP Hydralazine HCl 50 mg 06/16/19 21:00 06/21/19 08:35 Apresoline PO 50 mg TID PRADIP Administration Dextrose 500 mls @ 100 mls /hr 06/16/19 15:50 D5w IV ONCE PRN Adult Acute Hypog lycemia Prot Protocol Insulin Aspart 0 unit 06/16/19 18:00 06/21/19 12:40 Novolog SUBCUT 12 unit WM&BEDTIME PRADIP Administration Protocol Insulin Aspart 10 unit 06/20/19 17:00 06/21/19 12:36 Novolog SUBCUT Not Given TIDAC PRADIP Lactic Acid 1 applic 06/20/19 18:00 06/21/19 13:48 Lac-Hydrin TOPICAL 1 applic BID PRADIP Administration Lisinopril 40 mg 06/17/19 11:50 06/21/19 08:34 Prinivil PO 40 mg DAILY PRADIP Administration Magnesium Oxide 400 mg 06/16/19 18:00 06/21/19 08:35 Magox PO 400 mg BID PRADIP Administration Metolazone 2.5 mg 06/20/19 11:25 06/21/19 08:35 Zaroxolyn PO 2.5 mg DAILY PRADIP Administration Morphine Sulfate 2 mg 06/16/19 15:50 06/21/19 08:55 Morphine IVP 2 mg Q4H PRN Administration SEVERE PAIN Ondansetron HCl 4 mg 06/16/19 15:50 Zofran IVP Q6H PRN vomiting, or N/V if npo Pantoprazole Sodiu m 40 mg 06/17/19 09:00 06/21/19 08:35 Protonix PO 40 mg DAILY PRADIP Administration Tizanidine HCl 4 mg 06/16/19 15:55 06/20/19 15:25 Zanaflex PO 4 mg TID PRN Administration SPASMS No Known Allergies Allergy (Verified 06/16/19 11:38) Vitals/I&O/Wt Last Vital Signs Temp 97.6 F 06/24/19 08:00 Pulse 72 06/24/19 11:03 Resp 21 H 06/24/19 11:03 BP 149/83 06/24/19 10:00 Pulse Ox 92 06/24/19 11:03 06/23/19 06/24/19 06/24/19 22:59 06:59 14:59 Intake Total 720 / 1250 1470 / 2720 1050 / 1050 Output Total 400 / 750 550 / 1300 675 / 675 Balance 320 / 500 920 / 1420 375 / 375 Weight last 48 hrs Weight 116.8 kg Weight 110.677 kg Physical Exam Narrative: EXAM NARRATIVE: General: Acute distress because of shortness of breath, AO x3 HEENT: PERRLA, pupils bilaterally equal and reactive Chest: Coarse breath sounds present all over the lung field, anterior more than posterior , right more than left, good air entry bilaterally CVS: S1-S2 regular, no murmurs, no tachycardia, no gallops, no rubs Abdomen: Obese, soft, nontender, no organomegaly, bowel sounds present Neuro: No focal deficits, no facial deformity, AO x3, power 5/5 in all limbs Data : 06/24/19 04:17 06/24/19 04:17 Micro: Microbiology 06/23/19 10:00 Gram Stain - Final Sputum - Expectorated Sputum A&P Assessment and plan (1) ARDS (adult respiratory distress syndrome): Status: Acute Code(s): J80 - Acute respiratory distress syndrome (2) Hypoxia: Status: Acute Code(s): R09.02 - Hypoxemia (3) Pneumonia: Status: Acute Code(s): J18.9 - Pneumonia, unspecified organism (4) Heart failure with preserved ejection fraction: Status: Acute Code(s): I50.30 - Unspecified diastolic (congestive) heart failure (5) COPD (chronic obstructive pulmonary disease): Status: Acute Qualifiers: COPD type: COPD with acute exacerbation Qualified Code(s): J44.1 - Chronic obstructive pulmonary disease with (acute) exacerbation Code(s): J44.9 - Chronic obstructive pulmonary disease, unspecified (6) Type 2 diabetes mellitus: Status: Chronic Qualifiers: Diabetes mellitus senior care insulin use: without terminal press operator use Diabetes mellitus complication status: with skin complications Diabetes mellitus co mplication detail: with other skin complication Qualified Code(s): E11.628 - Type 2 diabetes mellitus with other skin complications Code(s): E11.9 - Type 2 diabetes mellitus without complications (7) PVD (peripheral vascular disease): -Has known history of PVD with noted venous ulcerations on bilateral lower extremities, had been seen by Dr. Fan -Continue wound care as needed -Arterial studies showing severe PAD with abnormal ABIs noted -Was referred to Dr. Martinez for evaluation of peripheral vascular disease Status: Chronic Code(s): I73.9 - Peripheral vascular disease, unspecified (8) Hypertension: Status: Chronic Qualifiers: Hypertension type: essential hypertension Qualified Code(s): I10 - Essential (primary) hypertension Code(s): I10 - Essential (primary) hypertension (9) Hyperlipidemia: -continue statin Status: Chronic Qualifiers: Hyperlipidemia type: unspecified Qualified Code(s): E78.5 - Hyperlipidemia, unspecified Code(s): E78.5 - Hyperlipidemia, unspecified Additional A&P Information ARDS: Multifactorial: Oxygen requirements high but improved since yesterday. Had asked for stat ABG PF ratio still less than 1. Patient has been treated for CHF exacerbation and COPD exacerbation. From the blood work requested procalcitonin mildly elevated as compared to before, proBNP better than before, flu negative, respiratory viral panel results awaited. Sputum sample awaited. Continue with broad-spectrum antibiotics of vancomycin and Zosyn both renally dosed along with Tamiflu. Day 3 of Tamiflu today. Tamiflu has been started empirically as patient's neighbor on the second floor was being treated for influenza along with severe comorbidities and worsening respiratory status with the flu going around in the community it will be prudent to treat Mr. Rushing as well. For CHF: Patient looks euvolemic. Kidney numbers better today. Patient has been n.p.o. since yesterday with decreased oral intake. We will continue to hold off any further diuresis or any IV hydration. We will continue with oral hydration today and see how he does. Strict intake and output charting. Monitor for fluid overload. Daily weights. BiPAP as needed. Continue oxygen supplementation keeping saturation over 88 %. Telemetry monitoring. For COPD: Continue with DuoNeb's, budesonide. Continue with methylprednisolone at current dose. Will not wean off for today. Start patient on Tessalon Perles 200 mg p.o. 3 times daily. Continues to cough so we will add guanfacine to the treatment every 8 hourly s tanrebecca. Type 2 diabetes mellitus: A1c 9.1. Sugars running high probably due to steroids. We will change insulin sliding scale to high-dose protocol. Start diet back at carb consistent diet. Hypertension: Patient's blood pressure is running on the softer side today. Given soft blood pressure will hold off on amlodipine, hydralazine, lisinopril. We will continue on Coreg at current dose to avoid refractory tachycardia. Continue to monitor blood pressures. Peripheral vascular disease: Continue with aspirin, statins. -Morbid obesity: BMI-37 kg/m2 -Chronic smoker -GERD -remote hx of brain tumor s/p BOTTLE BOOTH ATTENDANT shunt -Anxiety -possible aortic stenosis; may need further evaluation with CAITLYN -CKD stage 2; baseline Cr seems to be around 1.2 -Polycythemia; received 500 mL phlebotomy during last admission; stable H/H -GI ppx with PPI -DVT ppx with heparin -Dispo: Depending on patient's further clinical course will have to decide between SNF versus home with continued HH services -Code status: FULL code Discussed in detail with patient regarding critical nature of his illness along with severe ARDS. We discussed that patient is critically ill and might require intubation going down the line during this admission. Also discussed that we will try to avoid intubation as much as he can because patient will be a difficult extubation given his baseline respiratory status. Discussed the same with patient's brother on phone. They both verbalized understanding. 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 for [facility] F[facility] Diagnoses ARDS (adult respiratory distress syndrome) J80 Hypoxia R09.02 Pneumonia J18.9 Heart failure with preserved ejection fraction I50.30 COPD (chronic obstructive pulmonary disease) J44.1 COPD type: COPD with acute exacerbation Type 2 diabetes mellitus E11.628 Diabetes mellitus terminal press operator insulin use: without senior care use Diabetes mellitus complication status: with skin complications Diabetes mellitus complication detail: with other skin complication PVD (peripheral vascular disease) I73.9 Hypertension I10 Hypertension type: essential hypertension Hyperlipidemia E78.5 Hyperlipidemia type: unspecified
[2019-06-24] MEDS: guaiFENesin-dextromethorphan UDC 10 mL 5 ML PO ×2 (12:05→20:11)
--- NOTE | 2019-06-24 13:03 | PC.CHAP ---
Pastoral Care Encounter/Spiritual Assessment Type of Contact [] Declined classics professor visit [] Patient/Family/Request visit [] Outpatient visit [] Follow-up visit [] Physician referral [] Code/Alert [] Routine visit [] Staff referral [] Actively dying [] Patient sleeping [] Family support [] [] Out of room [] Palliative care [] [] Receiving care in room [] Pre-surgical visit [] Trauma [x] Long length of stay [x] ICU visit [x] Other: Isolation Relational/Emotional Strength [] Patient feels connected with others/family/visitors/staff [] Distress [] Loneliness/isolation [] Abandonment Spirituality of Patient [] Person of Natalie [] Attends Christianity of their Natalie [] Believes in Prayer [] Reads Bible or Roman Catholic materials [] There are Spiritual issues to be addressed Assistant Manager/Embalmer Interventions [] Prayer [] Active listening [] Non-anxious presence [] Spiritual/emotional support [] Crisis/trauma care [] Spiritual counseling [] Bereavement support [] Provided bereavement packet [] Provided Bible/devotional materials [] Provided toy/stuffed animal, coloring book to patient or family member [] Provided Communion [] Anointing/[place] [] Salvation [] Completed spiritual assessment [] Other: Impact on Illness or Injury [] Angry [] Fearful [] Anxious [] Often cries [] Exhaustion [] Unable to work [] Unable to attend tenriism [] Unable to walk/stand [] Unable to read [] Unable to drive [] Unable to eat/drink [] Unable to sleep [] Unable to be with family [] Patient intubated [] Other: Summary Patient was in isolation at the time of visit. Visist attempted by Assistant Manager/Embalmerhoward Givens. Time spent with patient 3 minutes
[2019-06-24] MEDS: acetaminophen 325 mg Tablet 650 MG PO (18:37)
[2019-06-24 18:39] LABS: Glucose Point of Care 293 mg/dL (70-110)
--- NOTE | 2019-06-24 19:31 | PC.NURSE ---
bedside report rcvd at this time. vss per cm. pt sitting up in bed watching television. pt reports leg pain and was recently medicated per previous shift. call light within reach. nikolay dickens.
[2019-06-24] MEDS: atorvastatin 40 mg Tablet PO (20:11)
--- NOTE | 2019-06-24 21:06 | PC.NURSE ---
pt had large bm c whole baby carrots and corn. nikolay dickens.
[2019-06-24 22:03] LABS: Glucose Point of Care 340 mg/dL (70-110)
[2019-06-25] VITALS (24 sets, daily range): BP systolic 154–193; BP diastolic 71–135; PULSE 63–77; RESP 16–26; TEMP 36.5–37.7; O2SAT 88–95
[2019-06-25] MEDS: heparin 5,000 unit/mL INJ 1 mL 5000 UNIT SUBCUT ×3 (03:34→20:44)
[2019-06-25] MEDS: guaiFENesin-dextromethorphan UDC 10 mL 5 ML PO ×3 (03:34→20:44)
[2019-06-25] MEDS: piperacillin-tazobactam 3.375 GM in sodium chloride 0.9% (plus) 50 ML IV ×3 (03:35→18:01)
[2019-06-25] MEDS: ipratropium-albuterol 3 mL Neb INHALATION ×5 (03:51→20:15)
[2019-06-25 04:23] LABS: Basophils % 0.1 %; Hematocrit 43.8 % (42.0-52.0); Hemoglobin 14.8 g/dL (11.7-16.6); Lymphocytes # 0.8 10^3/uL (0.8-4.8); Lymphocytes % 6.6 %; Mean Corpuscular HGB Conc 33.8 g/dL (30.0-36.0); Mean Corpuscular Hemoglobin 30.7 pg (28.0-34.0); Mean Corpuscular Volume 90.9 fL (80-94); Mean Platelet Volume 9.9 fL (7.4-10.4); Monocytes # 0.5 10^3/uL (0.2-0.9); Neutrophils # 10.6 10^3/uL (1.8-7.7); Neutrophils % 84.3 %; Nucleated Red Blood Cells % 0 %; Platelet Count 290 10^3/cmm (130-400); Red Blood Count 4.82 10^6/uL (4.1-5.3); Red Cell Distribution Width 11.5 % (12.1-15.1); White Blood Count 12.5 10^3/uL (4.0-10.0)
[2019-06-25 04:35] LABS: Alanine Aminotransferase 41 U/L (0-41); Albumin Level 2.9 g/dL (3.5-5.2); Alkaline Phosphatase 63 IU/L (40-130); Anion Gap 13.9 (5-19); Aspartate Amino Transferase 28 U/L (0-40); Blood Urea Nitrogen 29 mg/dL (8-23); Calcium 8.6 mg/dL (8.5-10.5); Carbon Dioxide 34 mmol/L (22-29); Chloride 85 mmol/L (98-107); Glucose 308 mg/dL (65-115); Potassium 3.9 mmol/L (3.5-5.1); Sodium 129 mmol/L (136-145); Total Bilirubin 0.4 mg/dL (0.15-1.2); Total Protein 5.9 g/dL (6.6-8.7)
[2019-06-25] MEDS: budesonide 0.5 mg/2 mL Neb INHALATION ×2 (07:35→20:15)
[2019-06-25 07:43] LABS: Glucose Point of Care 305 mg/dL (70-110)
--- NOTE | 2019-06-25 08:41 | XR_ITS ---
WS: [id number] XR chest 1V portable [id number] REASON FOR EXAM: pna/copd FINDINGS: The pneumonia previously described on June 18, 2019 is similar in the right lung base n o interval change are seen. Comparison to the CT and chest evaluation shows limited if any interval c hange in consideration of follow-up's are recommended and consider biopsy. Small amounts of pleural effusion are again seen. The left lower lung shows small opacities similar to the previous exam. A shunt tube is again identified. XR/XR chest 1V portable [id number] IMPRESSION: Unchanged alveolar infiltrates particularly on the right lower lung careful fol low-up recommended
--- NOTE | 2019-06-25 08:48 | P.PN_ITS ---
Subjective Subjective: Interval history: Labs noted. Patient seems to be improving. The oxygen requirement is coming down but still on the higher side. On examination he is on 30 L 40% saturating 91% sitting comfortably in chair. Patient states he is feeling a lot better as well. States cough is improving but still there and the expectoration is reduced. Patient has remained afebrile, hemodynamically stable. Input output noted. Medications: Reviewed: Yes Medication Review Details: Active Medications Generic Name Dose Route Start Last Admin Trade Name Freq PRN Reason Stop Dose Admin Acetaminophen 650 mg 06/16/19 15:50 06/20/19 15:25 Tylenol PO 650 mg Q6H PRN Administration Mild/Mod Pain Or Temp >/= 101 Albuterol/Ipratrop ium 3 ml 06/17/19 08:39 06/21/19 07:44 Duoneb INHALATION 3 ml Q4H.RESPIRATORY P RN Administration SHORTNESS OF LEONELA TH Amlodipine Besylat e 10 mg 06/17/19 09:00 06/21/19 08:34 Norvasc PO 10 mg DAILY PRADIP Administration Aspirin 81 mg 06/17/19 09:00 06/21/19 08:35 Aspirin Ec PO 81 mg DAILY PRADIP Administration Atorvastatin Calci um 40 mg 06/16/19 21:00 06/20/19 21:58 Lipitor PO 40 mg BEDTIME PRADIP Administration Budesonide 0.5 mg 06/16/19 20:00 06/21/19 07:44 Pulmicort INHALATION 0.5 mg BID.RESPIRATORY S CH Administration Carvedilol 12.5 mg 06/16/19 18:00 06/21/19 08:35 Coreg PO 12.5 mg BID PRADIP Administration Dextrose 25 ml 06/16/19 15:50 D50w IVP ONCE PRN hypoglycemia prot ocol Protocol Dextrose 50 ml 06/16/19 15:50 D50w IVP PRN PRN hypoglycemia prot ocol Protocol Furosemide 60 mg 06/20/19 16:00 06/21/19 08:35 Lasix PO 60 mg DAILY@0800 PRADIP Administration Glucagon 1 mg 06/16/19 15:50 Glucagen IM ONCE PRN Adult Acute Hypog lycemia Prot. Protocol Guaifenesin 1,200 mg 06/19/19 18:00 06/21/19 08:34 Mucinex PO 1,200 mg BID PRADIP Administration Heparin Sodium (Be ef Lung) 5,000 unit 06/16/19 16:00 06/21/19 06:51 Heparin SUBCUT Not Given Q12H PRADIP Hydralazine HCl 50 mg 06/16/19 21:00 06/21/19 08:35 Apresoline PO 50 mg TID PRADIP Administration Dextrose 500 mls @ 100 mls /hr 06/16/19 15:50 D5w IV ONCE PRN Adult Acute Hypog lycemia Prot Protocol Insulin Aspart 0 unit 06/16/19 18:00 06/21/19 12:40 Novolog SUBCUT 12 unit WM&BEDTIME PRADIP Administration Protocol Insulin Aspart 10 unit 06/20/19 17:00 06/21/19 12:36 Novolog SUBCUT Not Given TIDAC PRADIP Lactic Acid 1 applic 06/20/19 18:00 06/21/19 13:48 Lac-Hydrin TOPICAL 1 applic BID PRADIP Administration Lisinopril 40 mg 06/17/19 11:50 06/21/19 08:34 Prinivil PO 40 mg DAILY PRADIP Administration Magnesium Oxide 400 mg 06/16/19 18:00 06/21/19 08:35 Magox PO 400 mg BID PRADIP Administration Metolazone 2.5 mg 06/20/19 11:25 06/21/19 08:35 Zaroxolyn PO 2.5 mg DAILY PRADIP Administration Morphine Sulfate 2 mg 06/16/19 15:50 06/21/19 08:55 Morphine IVP 2 mg Q4H PRN Administration SEVERE PAIN Ondansetron HCl 4 mg 06/16/19 15:50 Zofran IVP Q6H PRN vomiting, or N/V if npo Pantoprazole Sodiu m 40 mg 06/17/19 09:00 06/21/19 08:35 Protonix PO 40 mg DAILY PRADIP Administration Tizanidine HCl 4 mg 06/16/19 15:55 06/20/19 15:25 Zanaflex PO 4 mg TID PRN Administration SPASMS No Known Allergies Allergy (Verified 06/16/19 11:38) Vitals/I&O/Wt Last Vital Signs Temp 97.9 F 06/25/19 08:00 Pulse 77 06/25/19 07:42 Resp 22 H 06/25/19 07:39 BP 177/76 06/25/19 08:00 Pulse Ox 92 06/25/19 08:00 06/24/19 06/25/19 06/25/19 22:59 06:59 14:59 Intake Total 550 / 1950 1460 / 3410 50 / 50 Output Total 1400 / 2075 2100 / 4175 250 / 250 Balance -850 / -125 -640 / -765 -200 / -200 Weight last 48 hrs Weight 116.8 kg Weight 110.677 kg Physical Exam Narrative: EXAM NARRATIVE: General: Acute distress because of shortness of breath, AO x3 HEENT: PERRLA, pupils bilaterally equal and reactive Chest: Bronchial breath sounds on the right side, pleural rub heard on the right upper lung, good air entry bilaterally CVS: S1-S2 regular, no murmurs, no tachycardia, no gallops, no rubs Abdomen: Obese, soft, nontender, no organomegaly, bowel sounds present Neuro: No focal deficits, no facial deformity, AO x3, power 5/5 in all limbs Data : 06/25/19 03:25 06/25/19 03:25 Micro: Microbiology 06/23/19 10:00 Gram Stain - Final Sputum - Expectorated Sputum Sputum Culture - Final A&P Assessment and plan (1) ARDS (adult respiratory distress syndrome): Status: Acute Code(s): J80 - Acute respiratory distress syndrome (2) Hypoxia: Status: Acute Code(s): R09.02 - Hypoxemia (3) Pneumonia: Status: Acute Code(s): J18.9 - Pneumonia, unspecified organism (4) Heart failure with preserved ejection fraction: Status: Acute Code(s): I50.30 - Unspecified diastolic (congestive) heart failure (5) COPD (chronic obstructive pulmonary disease): Status: Acute Qualifiers: COPD type: COPD with acute exacerbation Qualified Code(s): J44.1 - Chronic obstructive pulmonary disease with (acute) exacerbation Code(s): J44.9 - Chronic obstructive pulmonary disease, unspecified (6) Type 2 diabetes mellitus: Status: Chronic Qualifiers: Diabetes mellitus petroleum terminal plant operator insulin use: without petroleum terminal plant operator use Diabetes mellitus complication status: with skin complications Diabetes mellitus complication detail: with other skin complication Qualified Code(s): E11.628 - Type 2 diabetes mellitus with other skin complications Code(s): E11.9 - Type 2 diabetes mellitus without complications (7) PVD (peripheral vascular disease): -Has known history of PVD with noted venous ulcerations on bilateral lower extremities, had been seen by Dr. Fan -Continue wound care as needed -Arterial studies showing severe PAD with abnormal ABIs noted -Was referred to Dr. Martinez for evaluation of peripheral vascular disease Status: Chronic Code(s): I73.9 - Peripheral vascular disease, unspecified (8) Hypertension: Status: Chronic Qualifiers: Hypertension type: essential hypertension Qualified Code(s): I10 - Essential (primary) hypertension Code(s): I10 - Essential (primary) hypertension (9) Hyperlipidemia: -continue statin Status: Chronic Qualifiers: Hyperlipidemia type: unspecified Qualified Code(s): E78.5 - Hyperlipidemia, unspecified Code(s): E78.5 - Hyperlipidemia, unspecified Additional A&P Information ARDS: Multifactorial: Oxygen requirements high but continues to improve since yesterday. PF ratio improving. Patient has been treated for CHF exacerbation and COPD exacerbation. From the blood work requested procalcitonin mildly elevated as compared to before, proBNP better than before, flu negative, respiratory viral panel results awaited. Sputum sample awaited. Continue with broad-spectrum antibiotics of vancomycin and Zosyn both renally dosed along with Tamiflu. Day 4 of Tamiflu today. Most likely will have to continue Tamiflu until respiratory viral panel comes back. Tamiflu has been started empirically as patient's neighbor on the second floor was being treated for influenza along with severe comorbidities and worsening respiratory status with the flu going around in the community it will be prudent to treat Mr. Rushing as well. For CHF: Patient looks euvolemic. Renal functions better today. We will continue to hold off any further diuresis or any IV hydration. We will continue with oral hydration today and see how he does. Strict intake and output charting. Monitor for fluid overload. Daily weights. BiPAP as needed. Continue oxygen supplementation keeping saturation over 88 %. Telemetry monitoring. For COPD: Continue with DuoNeb's, budesonide. Wean off Solu-Medrol to every 12 hours.. Start patient on Tessalon Perles 200 mg p.o. 3 times daily. Continues to cough so we will add guanfacine to the treatment every 8 hourly standing. Will consult pulmonology today for further assistance. Type 2 diabetes mellitus: A1c 9.1. Sugars running high probably due to steroids. We will change insulin sliding scale to high-dose protocol. Start diet back at carb consistent diet. Hypertension: Blood pressures better now. We will start the amlodipine back and continue along with Coreg. Continue to hold off on lisinopril and hydralazine for now. Continue to monitor blood pressures. Peripheral vascular disease: Continue with aspirin, statins. -Morbid obesity: BMI-37 kg/m2 -Chronic smoker -GERD -remote hx of brain tumor s/p ELEVATOR REPAIRER HELPER shunt -Anxiety -possible aortic stenosis; may need further evaluation with CAITLYN -CKD stage 2; baseline Cr seems to be around 1.2 -Polycythemia; received 500 mL phlebotomy during last admission; stable H/H -GI ppx with PPI -DVT ppx with heparin -Dispo: Depending on patient's further clinical course will have to decide between SNF versus home with continued HH services -Code status: FULL code Discussed in detail with patient regarding critical nature of his illness along with severe ARDS. We discussed that patient is critically ill and might require intubation going down the line during this admission. Also discussed that we will try to avoid intubation as much as he can because patient will be a difficult extubation given his baseline respiratory status. Discussed the same with patient's brother on phone. They both verbalized understanding. Attestations Medical Necessity Statement*: ARDS Critical Care Time: Critical Care Time (min): 70 Coding Level of Care Code Acute Roaster Supervisor for [facility] [place] Fwd Diagnoses ARDS (adult respiratory distress syndrome) J80 Hypoxia R09.02 Pneumonia J18.9 Heart failure with preserved ejection fraction I50.30 COPD (chronic obstructive pulmonary disease) J44.1 COPD type: COPD with acute exacerbation Type 2 diabetes mellitus E11.628 Diabetes mellitus petroleum terminal plant operator insulin use: without petroleum terminal plant operator use Diabetes mellitus complication status: with skin complications Diabetes mellitus complication detail: with other skin complication PVD (peripheral vascular disease) I73.9 Hypertension I10 Hypertension type: essential hypertension Hyperlipidemia E78.5 Hyperlipidemia type: unspecified
[2019-06-25] MEDS: ammonium lactate lotion 226 gm Btl 1 APPLIC TOPICAL ×2 (09:06→17:46)
[2019-06-25] MEDS: fluticasone nasal spray 16gm Btl 2 SPRAY NASAL ×2 (09:06→17:46)
[2019-06-25] MEDS: pantoprazole DR 40 mg Tablet PO (09:07)
[2019-06-25] MEDS: magnesium oxide 400 mg tablet PO ×2 (09:07→17:25)
[2019-06-25] MEDS: benzonatate 100 mg Capsule 200 MG PO ×3 (09:07→20:44)
[2019-06-25] MEDS: aspirin 81 mg EC Tablet PO (09:07)
[2019-06-25] MEDS: oseltamivir phosphate 75 mg Capsule PO ×2 (09:07→17:25)
[2019-06-25] MEDS: carvedilol 12.5 mg Tablet PO ×2 (09:08→17:25)
--- NOTE | 2019-06-25 09:32 | PC.CHAP ---
Pastoral Care Encounter/Spiritual Assessment Type of Contact [] Declined spd tech visit [] Patient/Family/Request visit [] Outpatient visit [] Follow-up visit [] Physician referral [] Code/Alert [x Routine visit [] Staff referral [] Actively dying [] Patient sleeping [] Family support [] [] Out of room [] Palliative care [] [] Receiving care in room [] Pre-surgical visit [] Trauma [] Long length of stay [x] ICU visit [] Other: Relational/Emotional Strength [] Patient feels connected with others/family/visitors/staff [] Distress [] Loneliness/isolation [] Abandonment Spirituality of Patient [] Person of Natalie [] Attends Jehovah'S Witness of their Natalie [x] Believes in Prayer [] Reads Bible or Anabaptism materials [] There are Spiritual issues to be addressed Public Relations Account Executive Interventions [x] Prayer [] Active listening [] Non-anxious presence [] Spiritual/emotional support [] Crisis/trauma care [] Spiritual counseling [] Bereavement support [] Provided bereavement packet [] Provided Bible/devotional materials [] Provided toy/stuffed animal, coloring book to patient or family member [] Provided Communion [] Anointing/[place] [] Salvation [x] Completed spiritual assessment [] Other: Impact on Illness or Injury [] Angry [] Fearful [] Anxious [] Often cries [] Exhaustion [] Unable to work [] Unable to attend anabaptism [] Unable to walk/stand [] Unable to read [] Unable to drive [] Unable to eat/drink [] Unable to sleep [] Unable to be with family [] Patient intubated [] Other: Summary patient setting up in chair. Time spent with patient 10min
[2019-06-25 11:19] LABS: Glucose Point of Care 353 mg/dL (70-110)
--- NOTE | 2019-06-25 11:20 | PC.SOCIAL ---
IMM Updated Page 2 of [facility] updated and given to patient with the number to his [facility] advantage plan, [email or web address]. He verbalizes understanding. Initialed, dated, and timed and placed in chart. Copy provided to patient.
--- NOTE | 2019-06-25 14:23 | PC.CHAP ---
Pastoral Care Encounter/Spiritual Assessment Type of Contact [] Declined director customer visit [] Patient/Family/Request visit [] Outpatient visit [] Follow-up visit [] Physician referral [] Code/Alert [x] Routine visit [] Staff referral [] Actively dying [] Patient sleeping [] Family support [] [] Out of room [] Palliative care [] [] Receiving care in room [] Pre-surgical visit [] Trauma [] Long length of stay [] ICU visit [] Other: Relational/Emotional Strength [x] Patient feels connected with others/family/visitors/staff [] Distress [] Loneliness/isolation [] Abandonment Spirituality of Patient [] Person of Natalie [x] Attends Mu-Ism of their Natalie [x] Believes in Prayer [] Reads Bible or Sikhism materials [] There are Spiritual issues to be addressed Loft Worker Pile Driving Interventions [x] Prayer [x] Active listening [x Non-anxious presence [x] Spiritual/emotional support [] Crisis/trauma care [] Spiritual counseling [] Bereavement support [] Provided bereavement packet [] Provided Bible/devotional materials [] Provided toy/stuffed animal, coloring book to patient or family member [] Provided Communion [x] Anointing/[place] [] Salvation [] Completed spiritual assessment [] Other: Impact on Illness or Injury [] Angry [] Fearful [x] Anxious [] Often cries [] Exhaustion [] Unable to work [] Unable to attend episcopal [] Unable to walk/stand [] Unable to read [] Unable to drive [] Unable to eat/drink [] Unable to sleep [] Unable to be with family [] Patient intubated [] Other: Summary Had a good talk and lprayer with the lpatient Time spent with patient 8
--- NOTE | 2019-06-25 17:00 | PC.NURSE ---
Stasis Ulcers on legs: Pt stated he helped me out ,he removed the slough/scabs off his chronic ulcers. Offered to apply bandages with Hydrofera blue , pt declined. He stated they would be just fine ( open to air).
[2019-06-25 17:09] LABS: Glucose Point of Care 256 mg/dL (70-110)
[2019-06-25] MEDS: hyDRALAzine 25 mg Tablet PO ×2 (17:45→20:44)
--- NOTE | 2019-06-25 18:03 | PM.CONSULT ---
Providers/Reason For Consult Consulting Physican/Specialty*: Pulmonary and critical care medicine Reason for Consult*: Acute on chronic hypoxic respiratory failure Attending Physician: Harish Sorensen MD History of Present Illness History of Present Illness Corey Rushing is a 59 year old male who is currently in ICU for diagnosis of acute on chronic hypoxic respiratory failure. The patient has an extensive history of smoking. He smoked for about 52 years. The maximum he is smoking a day is 2 to 3 packs. He quit smoking 4 months ago. I do not have any previous pulmonary function test from patient. The chest CT scan does not reveal any significant emphysema. He does have a documented history of COPD based on the medical records. The patient has heart failure with preserved ejection fraction. The latest echocardiogram revealed ejection fraction of 55%. The diastolic function and RVSP could not be assessed because of poor echocardiographic window. The assessment of valvular function was also incomplete. However there seems to be thickening of the aortic valve. There is evidence of right atrial enlargement. The patient has had 2 hospital admission in May. The initial admission was in early May. The patient was diagnosed with right lower lobe pneumonia, COPD exacerbation causing acute hypoxic respiratory failure. There is also a component of heart failure exacerbation. CT angiogram obtained during this admission did not reveal any pulmonary embolism, there was no lung infiltrate and bilateral pleural effusion with compressive atelectasis of the surrounding lung. I believe this was a predominantly heart failure exacerbation and COPD exacerbation that caused the hospital admission. At the hospital discharge the patient was sent home on oxygen. The patient was admitted again on June 16. This time he was expressing worsening shortness of breath and hypoxia at home requiring more oxygen supplementation. He was found to have leukocytosis. On the CT scan of the chest there was right lower lobe ill-defined opacity. The pleural effusion that was present during the previous hospital admission had improved significantly. There was small amount of left-sided pleural effusion. The patient was thought to be suffering from heart failure exacerbation again and was treated with diuresis. However, in the next few days his respiratory status worsened and required progressively more oxygen. Repeat chest CT scan revealed dense consolidation involving the right lower lobe superior segment, posterior and lateral segments. There is also some infiltrate in the left lower lobe. There is persistence of the small left-sided pleural effusion. The patient at this point was started on broad-spectrum antibiotic, high-dose steroid and given Tamiflu empirically. Since then the patient has made significant improvement. I had seen and examined the patient in ICU today. The patient states that his breathing is back to 70% of baseline. The patient was sitting comfortably in a recliner. He has cough with sputum production. The sputum culture so far is growing mixed respiratory dillon. The patient denies any significant fever or night sweats and chills. I performed a bedside ultrasound which revealed B-lines in the right lower lung posteriorly, there is no pleural effusion on the right side and very minimal pleural effusion on the left. The IVC is not dilated. The patient is very well diuresed. Review of Systems Narrative: General: No fevers, chills or night sweats overnight Skin: No rash HEENT: No nasal congestion, rhinitis, sinusitis, sneezing, hoarseness of voice. There is no blurred vision, double vision, redness of the eye or visual loss. There is no oral ulcer, sore throat or dry mouth. Neck: There is no neck swelling, mass or swollen glands. Respiratory: Please see my HPI. Cardiovascular: No chest pain, resting shortness of breath, orthopnea, paroxysmal nocturnal dyspnea, palpitation. There is bilateral lower extremity swelling which is chronic with small ulcerations Gastrointestinal: No abdominal pain, nausea, vomiting, melena Musculoskeletal: Bilateral chronic lower extremity swelling with changes in skin color and multiple ulcers Neurological: Patient is awake alert and oriented x3, no paralysis, gross motor function is normal. Psychiatric: No anxiety or depression currently. Meds/Allergies Home Medications and Allergies Home Medications Medication Instructions Recorded Confirmed Type [place]-3 1 g PO BID 05/31/19 06/16/19 History metformin 500 mg PO BIDAC 05/31/19 06/16/19 History tizanidine 4 mg PO TID 05/31/19 06/16/19 History acetaminophen-codeine See Rx Instructions .ROUTE 06/16/19 06/16/19 History [Tylenol-Codeine #4] .COMPLEX PRN Allergies Allergy/AdvReac Type Severity Reaction Status Date / Time No Known Allergies Allergy Verified 06/16/19 11:38 Current Medications Current Medications Generic Name Dose Route Start Last Admin Trade Name Freq PRN Reason Stop Dose Admin Acetaminophen 650 mg 06/16/19 15:50 06/24/19 18:37 Tylenol PO 650 mg Q6H PRN Administration Mild/Mod Pain Or Temp >/= 101 Albuterol/Ipratropium 3 ml 06/22/19 13:00 06/25/19 15:10 Duoneb INHALATION 3 ml Q4H.RESPIRATORY PRADIP Administration Amlodipine Besylate 10 mg 06/17/19 09:00 06/22/19 08:32 Norvasc PO 10 mg DAILY PRADIP Administration Aspirin 81 mg 06/17/19 09:00 06/25/19 09:07 Aspirin Ec PO 81 mg DAILY PRADIP Administration Atorvastatin Calcium 40 mg 06/16/19 21:00 06/24/19 20:11 Lipitor PO 40 mg BEDTIME PRADIP Administration Benzonatate 200 mg 06/23/19 15:00 06/25/19 15:20 Tessalon Pearls PO 200 mg TID PRADIP Administration Budesonide 0.5 mg 06/16/19 20:00 06/25/19 07:35 Pulmicort INHALATION 0.5 mg BID.RESPIRATORY PRADIP Administration Carvedilol 12.5 mg 06/16/19 18:00 06/25/19 17:25 Coreg PO 12.5 mg BID PRADIP Administration Fluticasone Propionate 2 spray 06/23/19 18:00 06/25/19 17:46 Flonase NASAL 1 applic BID PRADIP Administration Furosemide 60 mg 06/20/19 16:00 06/22/19 08:34 Lasix PO 60 mg DAILY@0800 PRADIP Administration Guaifenesin/Dextromethorphan 5 ml 06/24/19 12:00 06/25/19 11:25 Robitussin Dm Oral Liq PO 5 ml Q8H PRADIP Administration Heparin Sodium (Beef Lung) 5,000 unit 06/24/19 11:45 06/25/19 11:26 Heparin SUBCUT 5,000 unit Q8H PRADIP Administration Hydralazine HCl 25 mg 06/25/19 17:31 06/25/19 17:45 Apresoline PO 25 mg TID PRADIP Administration Piperacillin Sod/Tazobactam 50 mls @ 12.5 mls/hr 06/22/19 19:00 06/25/19 15:40 Sod 3.375 gm/ Sodium Chloride IV Infused Q8H PRADIP Infusion Protocol Vancomycin HCl 2,000 mg/ 500 mls @ 250 mls/hr 06/22/19 20:00 06/25/19 03:35 Sodium Chloride IV Infused Q18H PRADIP Infusion Insulin Aspart 0 unit 06/16/19 18:00 06/25/19 17:25 Novolog SUBCUT 10 unit WM&BEDTIME PRADIP Administration Protocol Insulin Aspart 10 unit 06/20/19 17:00 06/25/19 17:25 Novolog SUBCUT 10 unit TIDAC PRADIP Administration Lactic Acid 1 applic 06/20/19 18:00 06/25/19 17:46 Lac-Hydrin TOPICAL 1 applic BID PRADIP Administration Lisinopril 40 mg 06/17/19 11:50 06/22/19 08:32 Prinivil PO 40 mg DAILY PRADIP Administration Magnesium Oxide 400 mg 06/16/19 18:00 06/25/19 17:25 Magox PO 400 mg BID PRADIP Administration Methylprednisolone Sodium Succinate 40 mg 06/25/19 18:00 06/25/19 17:46 Solu-Medrol IVP 40 mg Q12H PRADIP Administration Metolazone 2.5 mg 06/20/19 11:25 06/22/19 08:33 Zaroxolyn PO 2.5 mg DAILY PRADIP Administration Morphine Sulfate 2 mg 06/16/19 15:50 06/21/19 18:05 Morphine IVP 2 mg Q4H PRN Administration SEVERE PAIN Oseltamivir Phosphate 75 mg 06/23/19 09:00 06/25/19 17:25 Tamiflu PO 75 mg BID PRADIP Administration Pantoprazole Sodium 40 mg 06/17/19 09:00 06/25/19 09:07 Protonix PO 40 mg DAILY PRADIP Administration Tizanidine HCl 4 mg 06/16/19 15:55 06/22/19 08:43 Zanaflex PO 4 mg TID PRN Administration SPASMS PFSH Acute PFSH: Medical History COPD (chronic obstructive pulmonary disease) oxygen dependent, 4 L at rest, 6 L with exertion Diabetic foot ulcers Heart failure with preserved ejection fraction Hyperlipidemia Hypertension Peripheral arterial disease Follow-up with cardiology PVD (peripheral vascular disease) Type 2 diabetes mellitus not insulin dependent Venous ulcer of leg Concern of peripheral vascular disease as well. 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 HEENT: Pupil bilateral symmetric, light and accommodation reflex present, extraocular muscle movement intact, no deformity of the nose, mildly congested nasal mucosa, no paleness noted, no bleeding, intact nasal septum, no tenderness of the frontal and maxillary sinuses. Oral mucosa is moist, no pharyngeal erythema or cobblestoning. Neck: No JVD, no cervical or supraclavicular lymphadenopathy. Respiratory: Inspection: No visible deformity of the chest wall, no scar Palpation: Trachea is mildly deviated to the right, bilateral symmetric expansion but reduced Percussion: Bilateral tympanic percussion note both anterior and posteriorly, the very posterior part of the right and left lower lung was not examined Auscultation: Reduced breath sound bilaterally, crackles at the right lower lung base posteriorly, no wheezing or rhonchi Cardiovascular: Regular rate and rhythm, S1-S2 present, no murmur, no right ventricular heave, bilateral peripheral edema with ulcerations and skin color change Abdomen: Soft, nontender, distended from obesity, positive bowel sound. No palpable organomegaly. Musculoskeletal: No obvious joint deformity Neuro: Mental status is normal, no gross cranial nerve deficit, normal motor and coordination. Data Micro: Micro: Microbiology 06/23/19 10:00 Gram Stain - Final Sputum - Expector ated Sputum Sputum Culture - F inal Other Data: Other data: I have reviewed the patient's laboratory, microbiologic and radiologic data. The patient has evidence of chronic hypercapnic respiratory failure. The corrected serum sodium is close to normal when corrected for the glucose on the BMP. A&P Assessment and plan (1) Pneumonia: The patient has radiologic evidence of right lower lobe pneumonia as well as small infiltrate in the left lower lobe. Given the patient's recent hospital admission he is at risk for infection by resistant organisms. The patient is currently covered with broad-spectrum antibiotic and is getting better. We can continue the current regimen to complete a 7-day therapy. Since the patient does not have bilateral diffuse infiltrate this would not be considered as ARDS. The patient is currently very well diuresed. The patient has radiographic evidence of lobar consolidation and not been consistent with influenza pneumonia. Would recommend rapidly discontinuing IV steroid. This is likely to cause fluid retention. There is no definitive indication for steroid with community-acquired pneumonia. The pneumonia was present on admission. Status: Acute Code(s): J18.9 - Pneumonia, unspecified organism (2) Acute and chronic respiratory failure: The patient has evidence of chronic hypoxic and hypercapnic respiratory failure. The etiology for the hypercapnic respiratory failure is unclear. This could be secondary to obesity hypoventilation syndrome however a significant component of airflow obstruction cannot be ruled out without a pulmonary function test. Although the patient does not have significant emphysema he could easily have chronic bronchitis. His body habitus is also consistent with diagnosis of chronic bronchitis. The patient will need a pulmonary function test given the presence of hypercapnia he would be a candidate for BiPAP therapy as outpatient. The patient should use BiPAP at nighttime if he is willing to do that. The patient has some degree of pulmonary artery dilation on the CT scan and the RV seems to be enlarged. The pulmonary hypertension could potentially be secondary to heart failure with preserved preserved ejection fraction as well as pulmonary etiology. This will need outpatient work-up. I expect the patient to get better in the next few days and I will be happy to follow-up with him as outpatient. Thank you for the consultation on this interesting patient. Status: Acute Code(s): J96.20 - Acute and chronic respiratory failure, unspecified whether with hypoxia or hypercapnia Coding Level of Care Code Acute [employer] Room Custodian for [facility] Diagnoses Pneumonia J18.9 Acute and chronic respiratory failure J96.20
[2019-06-25] MEDS: efferdent effervescent 1 EACH DENTAL (20:44)
[2019-06-25] MEDS: atorvastatin 40 mg Tablet PO (20:44)
[2019-06-25 21:04] LABS: Glucose Point of Care 282 mg/dL (70-110)
[2019-06-26] VITALS (22 sets, daily range): BP systolic 116–171; BP diastolic 53–90; PULSE 61–90; RESP 16–29; TEMP 36.6–36.8; O2SAT 88–95; BMI 38.0
[2019-06-26] MEDS: ipratropium-albuterol 3 mL Neb INHALATION ×5 (03:28→20:25)
[2019-06-26] MEDS: guaiFENesin-dextromethorphan UDC 10 mL 5 ML PO ×3 (03:32→19:35)
[2019-06-26] MEDS: heparin 5,000 unit/mL INJ 1 mL 5000 UNIT SUBCUT ×3 (03:32→19:35)
[2019-06-26] MEDS: piperacillin-tazobactam 3.375 GM in sodium chloride 0.9% (plus) 50 ML IV ×3 (03:33→17:46)
[2019-06-26 06:21] LABS: Glucose Point of Care 203 mg/dL (70-110)
[2019-06-26] MEDS: budesonide 0.5 mg/2 mL Neb INHALATION ×2 (07:44→20:25)
[2019-06-26] MEDS: benzonatate 100 mg Capsule 200 MG PO ×3 (08:07→21:01)
[2019-06-26] MEDS: amlodipine 10 mg Tablet PO (08:08)
[2019-06-26] MEDS: fluticasone nasal spray 16gm Btl 2 SPRAY NASAL ×2 (08:10→17:46)
[2019-06-26] MEDS: oseltamivir phosphate 75 mg Capsule PO ×2 (08:10→17:43)
[2019-06-26] MEDS: magnesium oxide 400 mg tablet PO ×2 (08:10→17:44)
[2019-06-26] MEDS: carvedilol 12.5 mg Tablet PO ×2 (08:10→17:45)
[2019-06-26] MEDS: aspirin 81 mg EC Tablet PO (08:10)
[2019-06-26] MEDS: hyDRALAzine 25 mg Tablet PO ×3 (08:10→21:01)
[2019-06-26] MEDS: ammonium lactate lotion 226 gm Btl 1 APPLIC TOPICAL ×2 (08:10→17:46)
[2019-06-26 10:39] LABS: Oxygen Device HHF
[2019-06-26] MEDS: pantoprazole DR 40 mg Tablet PO (10:58)
[2019-06-26] MEDS: morphine 4 mg/mL SDV 1 mL 2 MG IVP ×2 (11:03→22:13)
[2019-06-26 11:18] LABS: Glucose Point of Care 328 mg/dL (70-110)
[2019-06-26 14:15] LABS: Basophils % 0.2 %; Hematocrit 46.3 % (42.0-52.0); Hemoglobin 15.4 g/dL (11.7-16.6); Lymphocytes # 0.7 10^3/uL (0.8-4.8); Lymphocytes % 5.5 %; Mean Corpuscular HGB Conc 33.3 g/dL (30.0-36.0); Mean Corpuscular Volume 96.1 fL (80-94); Monocytes # 0.5 10^3/uL (0.2-0.9); Monocytes % 3.8 %; Neutrophils # 11.1 10^3/uL (1.8-7.7); Nucleated Red Blood Cells % 0 %; Platelet Count 316 10^3/cmm (130-400); Red Blood Count 4.82 10^6/uL (4.1-5.3); Red Cell Distribution Width 11.8 % (12.1-15.1); White Blood Count 12.6 10^3/uL (4.0-10.0)
[2019-06-26 14:35] LABS: Alanine Aminotransferase 53 U/L (0-41); Albumin Level 2.7 g/dL (3.5-5.2); Alkaline Phosphatase 65 IU/L (40-130); Anion Gap 13.2 (5-19); Blood Urea Nitrogen 23 mg/dL (8-23); Calcium 8.6 mg/dL (8.5-10.5); Carbon Dioxide 34 mmol/L (22-29); Chloride 85 mmol/L (98-107); Globulin 3.3 g/dL (1.3-4.6); Glucose 411 mg/dL (65-115); Potassium 4.2 mmol/L (3.5-5.1); Sodium 128 mmol/L (136-145); Total Bilirubin 0.3 mg/dL (0.15-1.2)
[2019-06-26 14:40] LABS: Aspartate Amino Transferase 41 U/L (0-40)
[2019-06-26] MEDS: acetaminophen 325 mg Tablet 650 MG PO ×2 (15:18→21:45)
[2019-06-26 17:08] LABS: Glucose Point of Care 249 mg/dL (70-110)
--- NOTE | 2019-06-26 18:16 | P.PN_ITS ---
Subjective Subjective: Interval history: Labs noted. Doing better now. On evaluation patient is on nasal cannula 7 L saturating 94%. States he is feeling a lot better now. Cough has reduced. Shortness of breath is improved as well. Denies of having any nausea, vomiting, palpitations. -175 in last 24 hours. Medications: Reviewed: Yes Medication Review Details: Active Medications Generic Name Dose Route Start Last Admin Trade Name Freq PRN Reason Stop Dose Admin Acetaminophen 650 mg 06/16/19 15:50 06/20/19 15:25 Tylenol PO 650 mg Q6H PRN Administration Mild/Mod Pain Or Temp >/= 101 Albuterol/Ipratrop ium 3 ml 06/17/19 08:39 06/21/19 07:44 Duoneb INHALATION 3 ml Q4H.RESPIRATORY P RN Administration SHORTNESS OF LEONELA TH Amlodipine Besylat e 10 mg 06/17/19 09:00 06/21/19 08:34 Norvasc PO 10 mg DAILY PRADIP Administration Aspirin 81 mg 06/17/19 09:00 06/21/19 08:35 Aspirin Ec PO 81 mg DAILY PRADIP Administration Atorvastatin Calci um 40 mg 06/16/19 21:00 06/20/19 21:58 Lipitor PO 40 mg BEDTIME PRADIP Administration Budesonide 0.5 mg 06/16/19 20:00 06/21/19 07:44 Pulmicort INHALATION 0.5 mg BID.RESPIRATORY S CH Administration Carvedilol 12.5 mg 06/16/19 18:00 06/21/19 08:35 Coreg PO 12.5 mg BID PRADIP Administration Dextrose 25 ml 06/16/19 15:50 D50w IVP ONCE PRN hypoglycemia prot ocol Protocol Dextrose 50 ml 06/16/19 15:50 D50w IVP PRN PRN hypoglycemia prot ocol Protocol Furosemide 60 mg 06/20/19 16:00 06/21/19 08:35 Lasix PO 60 mg DAILY@0800 PRADIP Administration Glucagon 1 mg 06/16/19 15:50 Glucagen IM ONCE PRN Adult Acute Hypog lycemia Prot. Protocol Guaifenesin 1,200 mg 06/19/19 18:00 06/21/19 08:34 Mucinex PO 1,200 mg BID PRADIP Administration Heparin Sodium (Be ef Lung) 5,000 unit 06/16/19 16:00 06/21/19 06:51 Heparin SUBCUT Not Given Q12H PRADIP Hydralazine HCl 50 mg 06/16/19 21:00 06/21/19 08:35 Apresoline PO 50 mg TID PRADIP Administration Dextrose 500 mls @ 100 mls /hr 06/16/19 15:50 D5w IV ONCE PRN Adult Acute Hypog lycemia Prot Protocol Insulin Aspart 0 unit 06/16/19 18:00 06/21/19 12:40 Novolog SUBCUT 12 unit WM&BEDTIME PRADIP Administration Protocol Insulin Aspart 10 unit 06/20/19 17:00 06/21/19 12:36 Novolog SUBCUT Not Given TIDAC PRADIP Lactic Acid 1 applic 06/20/19 18:00 06/21/19 13:48 Lac-Hydrin TOPICAL 1 applic BID PRADIP Administration Lisinopril 40 mg 06/17/19 11:50 06/21/19 08:34 Prinivil PO 40 mg DAILY PRADIP Administration Magnesium Oxide 400 mg 06/16/19 18:00 06/21/19 08:35 Magox PO 400 mg BID PRADIP Administration Metolazone 2.5 mg 06/20/19 11:25 06/21/19 08:35 Zaroxolyn PO 2.5 mg DAILY PRADIP Administration Morphine Sulfate 2 mg 06/16/19 15:50 06/21/19 08:55 Morphine IVP 2 mg Q4H PRN Administration SEVERE PAIN Ondansetron HCl 4 mg 06/16/19 15:50 Zofran IVP Q6H PRN vomiting, or N/V if npo Pantoprazole Sodiu m 40 mg 06/17/19 09:00 06/21/19 08:35 Protonix PO 40 mg DAILY PRADIP Administration Tizanidine HCl 4 mg 06/16/19 15:55 06/20/19 15:25 Zanaflex PO 4 mg TID PRN Administration SPASMS No Known Allergies Allergy (Verified 06/16/19 11:38) Vitals/I&O/Wt Last Vital Signs Temp 98.2 F 06/26/19 14:00 Pulse 64 06/26/19 16:00 Resp 20 H 06/26/19 16:00 BP 157/72 06/26/19 16:00 Pulse Ox 93 06/26/19 16:00 06/26/19 06/26/19 06/26/19 06:59 14:59 22:59 Intake Total 1500 / 4900 500 / 500 910 / 1410 Output Total 2200 / 5075 1900 / 1900 450 / 2350 Balance -700 / -175 -1400 / -1400 460 / -940 Weight last 48 hrs Weight 116.8 kg Physical Exam Narrative: EXAM NARRATIVE: General: Acute distress because of shortness of b reath, AO x3 HEENT: PERRLA, pupils bilaterally equal and reactive Chest: Bronchial breath sounds on the right side, pleural rub heard on the right upper lung, occasional fine crackles present in the mid lung bilaterally, good air entry bilaterally CVS: S1-S2 regular, no murmurs, no tachycardia, no gallops, no rubs Abdomen: Obese, soft, nontender, no organomegaly, bowel sounds present Neuro: No focal deficits, no facial deformity, AO x3, power 5/5 in all limbs Data : 06/26/19 12:56 06/26/19 12:56 A&P Assessment and plan (1) ARDS (adult respiratory distress syndrome): Status: Acute Code(s): J80 - Acute respiratory distress syndrome (2) Hypoxia: Status: Acute Code(s): R09.02 - Hypoxemia (3) Pneumonia: Status: Acute Code(s): J18.9 - Pneumonia, unspecified organism (4) Heart failure with preserved ejection fraction: Status: Acute Code(s): I50.30 - Unspecified diastolic (congestive) heart failure (5) COPD (chronic obstructive pulmonary disease): Status: Acute Qualifiers: COPD type: COPD with acute exacerbation Qualified Code(s): J44.1 - Chronic obstructive pulmonary disease with (acute) exacerbation Code(s): J44.9 - Chronic obstructive pulmonary disease, unspecified (6) Type 2 diabetes mellitus: Status: Chronic Qualifiers: Diabetes mellitus wreath and garland maker hand insulin use: without wreath and garland maker hand use Diabetes mellitus complication status: with skin complications Diabetes mellitus complication detail: with other skin complication Qualified Code(s): E11.628 - Type 2 diabetes mellitus with other skin complications Code(s): E11.9 - Type 2 diabetes mellitus without complications (7) PVD (peripheral vascular disease): -Has known history of PVD with noted venous ulcerations on bilateral lower extremities, had been seen by Dr. Fan -Continue wound care as needed -Arterial studies showing severe PAD with abnormal ABIs noted -Was referred to Dr. Martinez for evaluation of peripheral vascular disease Status: Chronic Code(s): I73.9 - Peripheral vascular disease, unspecified (8) Hypertension: Status: Chronic Qualifiers: Hypertension type: essential hypertension Qualified Code(s): I10 - Essential (primary) hypertension Code(s): I10 - Essential (primary) hypertension (9) Hyperlipidemia: -continue statin Status: Chronic Qualifiers: Hyperlipidemia type: unspecified Qualified Code(s): E78.5 - Hyperlipidemia, unspecified Code(s): E78.5 - Hyperlipidemia, unspecified Additional A&P Information ARDS: Multifactorial: Oxygen requirements high but continues to improve since yesterday. PF ratio improving. Patient has been treated for CHF exacerbation and COPD exacerbation. From the blood work requested procalcitonin mildly elevated as compared to before, proBNP better than before, flu negative, respiratory viral panel results awaited. Sputum sample awaited. Tamiflu has been started empirically as patient's neighbor on the second floor w as being treated for influenza along with severe comorbidities and worsening respiratory status with the flu going around in the community it will be prudent to treat Mr. Rushing as well. Continue with broad-spectrum antibiotics of vancomycin and Zosyn both renally dosed along with Tamiflu. Day 5 of Tamiflu today. Will finish a 7-day course of antibiotics. 2 days left. Confirm with micro lab regarding the status of respiratory viral panel. States the panel was lost so was recent yesterday. Will take up to 4 to 7 days. If patient continues to improve can stop Tamiflu after a 7-day course. For CHF: Patient looks euvolemic. Renal functions better today. We will start him back on oral diuresis with Lasix 60 mg daily today. We will continue to hold off on metolazone. Strict intake and output charting. Monitor for fluid overload. Daily weights. BiPAP as needed. Continue oxygen supplementation keeping saturation over 88 %. Telemetry monitoring. For COPD: Continue with DuoNeb's, budesonide. Decreasing titrate to 40 mg daily. Start patient on Tessalon Perles 200 mg p.o. 3 times daily. Continues to cough so we will add guanfacine to the treatment every 8 hourly standing. Will consult pulmonology today for further assistance. Type 2 diabetes mellitus: A1c 9.1. Sugars running high probably due to steroids. We will change insulin sliding scale to high-dose protocol. Start diet back at carb consistent diet. Hypertension: Blood pressures better now. We will add hydralazine back continue with amlodipine and Coreg. Continue to hold off on lisinopril for now. Continue to monitor blood pressures. Peripheral vascular disease: Continue with aspirin, statins. -Morbid obesity: BMI-37 kg/m2 -Chronic smoker -GERD -remote hx of brain tumor s/p [employer] shunt -Anxiety -possible aortic stenosis; may need further evaluation with CAITLYN -CKD stage 2; baseline Cr seems to be around 1.2 -Polycythemia; received 500 mL phlebotomy during last admission; stable H/H -GI ppx with PPI -DVT ppx with heparin -Dispo: Depending on patient's further clinical course will have to decide [facility] versus home with continued HH services -Code status: FULL code If patient continues to improve can plan to transfer him to floors tomorrow morning. Attestations Medical Necessity Statement*: ARDS improving. Critical Care Time: Critical Care Time (min): 50 Coding Level of Care Code Acute Installations Inspector for [facility] F[facility] Diagnoses ARDS (adult respiratory distress syndrome) J80 Hypoxia R09.02 Pneumonia J18.9 Heart failure with preserved ejection fraction I50.30 COPD (chronic obstructive pulmonary disease) J44.1 COPD type: COPD with acute exacerbation Type 2 diabetes mellitus E11.628 Diabetes mellitus longterm insulin use: without wreath and garland maker hand use Diabetes mellitus complication status: with skin complications Diabetes mellitus complication detail: with other skin complication PVD (peripheral vascular disease) I73.9 Hypertension I10 Hypertension type: essential hypertension Hyperlipidemia E78.5 Hyperlipidemia type: unspecified
[2019-06-26] MEDS: atorvastatin 40 mg Tablet PO (21:01)
[2019-06-26 21:15] LABS: Glucose Point of Care 247 mg/dL (70-110)
[2019-06-26] MEDS: efferdent effervescent 1 EACH DENTAL (21:48)
[2019-06-26] MEDS: insulin glargine 100 units/1 mL 30 UNIT SUBCUT (21:54)
[2019-06-27] VITALS (21 sets, daily range): BP systolic 140–167; BP diastolic 67–97; PULSE 63–75; RESP 18–28; TEMP 36.6; O2SAT 87–95; BMI 37.9
[2019-06-27] MEDS: ipratropium-albuterol 3 mL Neb INHALATION ×6 (00:29→21:27)
[2019-06-27] MEDS: piperacillin-tazobactam 3.375 GM in sodium chloride 0.9% (plus) 50 ML IV ×3 (02:28→20:09)
[2019-06-27 03:31] LABS: Adenovirus Not Detected (Not Detected); Human Metapneumovirus Not Detected (Not Detected); Human Parainflu Virus 1 Not Detected (Not Detected); Human Parainflu Virus 2 Not Detected (Not Detected); Human Parainflu Virus 3 Not Detected (Not Detected); Human Rsv A Not Detected (Not Detected); Influenza A Not Detected (Not Detected); Influenza B Not Detected (Not Detected); Rhinovirus/Enterovirus Not Detected (Not Detected)
[2019-06-27] MEDS: morphine 4 mg/mL SDV 1 mL 2 MG IVP ×3 (03:48→21:30)
[2019-06-27] MEDS: heparin 5,000 unit/mL INJ 1 mL 5000 UNIT SUBCUT ×3 (03:48→20:08)
[2019-06-27] MEDS: guaiFENesin-dextromethorphan UDC 10 mL 5 ML PO ×3 (03:48→20:09)
[2019-06-27 04:24] LABS: Basophils % 0.1 %; Eosinophils % 0.3 %; Hematocrit 46.6 % (42.0-52.0); Hemoglobin 15.7 g/dL (11.7-16.6); Lymphocytes # 1.4 10^3/uL (0.8-4.8); Lymphocytes % 10.5 %; Mean Corpuscular HGB Conc 33.7 g/dL (30.0-36.0); Mean Corpuscular Volume 91.9 fL (80-94); Mean Platelet Volume 9.4 fL (7.4-10.4); Monocytes # 1.1 10^3/uL (0.2-0.9); Monocytes % 8.5 %; Neutrophils # 10.3 10^3/uL (1.8-7.7); Neutrophils % 77.4 %; Nucleated Red Blood Cells % 0 %; Platelet Count 327 10^3/cmm (130-400); Red Blood Count 5.07 10^6/uL (4.1-5.3); Red Cell Distribution Width 11.8 % (12.1-15.1); White Blood Count 13.3 10^3/uL (4.0-10.0)
[2019-06-27 04:35] LABS: Alanine Aminotransferase 66 U/L (0-41); Albumin Level 2.7 g/dL (3.5-5.2); Alkaline Phosphatase 99 IU/L (40-130); Anion Gap 10.8 (5-19); Aspartate Amino Transferase 42 U/L (0-40); Blood Urea Nitrogen 23 mg/dL (8-23); Calcium 8.6 mg/dL (8.5-10.5); Carbon Dioxide 38 mmol/L (22-29); Chloride 87 mmol/L (98-107); Globulin 3.4 g/dL (1.3-4.6); Glomerular Filtration Rate 68.1 mL/min (90-130); Glucose 297 mg/dL (65-115); Potassium 3.8 mmol/L (3.5-5.1); Sodium 132 mmol/L (136-145); Total Bilirubin 0.3 mg/dL (0.15-1.2); Total Protein 6.1 g/dL (6.6-8.7)
[2019-06-27 04:38] LABS: ABG PH Result 7.42 (7.35-7.45); Alveolar-Arterial Oxygen Gradi 4.7 mmHg (5-10); Arterial Blood Gas Hematocrit 48.2 % (42-52); Base Excess ABG 12.7 mmol/L (-2.0-2.0); Blood Gas Allen Test Pos; Blood Gas Sample Site Radial, right; Blood Gas Sample Type Arterial; Carboxyhemoglobin 0.5 %THgb (0.4-20.1); HCO3 ABG 40.4 mmol/L (22-26); HGB O2 Sat 93.7 % (95-100); Ionized Calcium Level - ABG 1.1 mmol/L (1.1-1.4); Methemoglobin 0.2 % (0.4-1.5); Oxygen Device NC; Oxygen Saturation ABG 94.3; PO2 ABG 70.4 mmHg (80.0-100.0); Potassium Level - ABG 3.3 mmol/L (3.5-5.0); Total Hemoglobin 15.7 g/dL (14-18)
[2019-06-27 06:09] LABS: Glucose Point of Care 217 mg/dL (70-110)
[2019-06-27] MEDS: budesonide 0.5 mg/2 mL Neb INHALATION ×2 (07:27→21:27)
[2019-06-27 07:59] LABS: Glucose Point of Care 179 mg/dL (70-110)
[2019-06-27] MEDS: pantoprazole DR 40 mg Tablet PO (08:35)
[2019-06-27] MEDS: magnesium oxide 400 mg tablet PO ×2 (08:35→16:48)
[2019-06-27] MEDS: FUROsemide 40 mg Tablet 60 MG PO (08:35)
[2019-06-27] MEDS: amlodipine 10 mg Tablet PO (08:36)
[2019-06-27] MEDS: aspirin 81 mg EC Tablet PO (08:36)
[2019-06-27] MEDS: benzonatate 100 mg Capsule 200 MG PO ×3 (08:36→20:09)
[2019-06-27] MEDS: carvedilol 12.5 mg Tablet PO ×2 (08:36→16:48)
[2019-06-27] MEDS: oseltamivir phosphate 75 mg Capsule PO ×2 (08:36→16:48)
[2019-06-27] MEDS: hyDRALAzine 25 mg Tablet PO ×3 (08:36→20:08)
[2019-06-27] MEDS: ammonium lactate lotion 226 gm Btl 1 APPLIC TOPICAL ×2 (08:37→16:49)
[2019-06-27] MEDS: fluticasone nasal spray 16gm Btl 2 SPRAY NASAL ×2 (08:37→16:49)
--- NOTE | 2019-06-27 10:13 | PC.SOCIAL ---
IMM Updated Updated pt on Pg 2 IMM & provided pt a copy. No questions voiced. Signed, dated, & timed original in chart.
[2019-06-27 11:12] LABS: Glucose Point of Care 195 mg/dL (70-110)
--- NOTE | 2019-06-27 12:20 | PM.PN ---
Subjective Subjective: Interval history: Labs noted. Continues to do a lot better now. On examination patient is on 4 L nasal cannula saturating more than 94%. States his cough is become better. Denies of having nausea, vomiting or palpitations, headache, shortness of breath at present. Overall in last 24 hours patient is 3 L negative. Vitals/I&O/Wt Last Vital Signs Temp 97.9 F 06/27/19 08:00 Pulse 74 06/27/19 11:19 Resp 18 06/27/19 11:19 BP 162/97 06/27/19 08:00 Pulse Ox 91 06/27/19 11:19 06/26/19 06/27/19 06/27/19 22:59 06:59 14:59 Intake Total 960 / 1460 240 / 240 Output Total 750 / 2650 1900 / 4550 1600 / 1600 Balance 210 / -1190 -1900 / -3090 -1360 / -1360 Weight last 48 hrs Weight 116.573 kg Weight 116.8 kg Physical Exam Narrative: EXAM NARRATIVE: General: Acute distress because of shortness of breath, AO x3 HEENT: PERRLA, pupils bilaterally equal and reactive Chest: Normal vesicular breath sounds all over the lung [place], occasional rhonchi present all over the lung [place], better than before. Good air entry all over the lung [place] bilaterally. CVS: S1-S2 regular, no murmurs, no tachycardia, no gallops, no rubs Abdomen: Obese, soft, nontender, no organomegaly, bowel sounds present Neuro: No focal deficits, no facial deformity, AO x3, power 5/5 in all limbs Data : 06/27/19 04:05 06/27/19 04:05 A&P Assessment and plan (1) ARDS (adult respiratory distress syndrome): Status: Acute Code(s): J80 - Acute respiratory distress syndrome (2) Hypoxia: Status: Acute Code(s): R09.02 - Hypoxemia (3) Pneumonia: Status: Acute Code(s): J18.9 - Pneumonia, unspecified organism (4) Heart failure with preserved ejection fraction: Status: Acute Code(s): I50.30 - Unspecified diastolic (congestive) heart failure (5) COPD (chronic obstructive pulmonary disease): Status: Acute Qualifiers: COPD type: COPD with acute exacerbation Qualified Code(s): J44.1 - Chronic obstructive pulmonary disease with (acute) exacerbation Code(s): J44.9 - Chronic obstructive pulmonary disease, unspecified (6) Type 2 diabetes mellitus: Status: Chronic Qualifiers: Diabetes mellitus complication detail: with other skin complication Diabetes mellitus complication status: with skin complications Diabetes mellitus half-way insulin use: without half-way use Qualified Code(s): E11.628 - Type 2 diabetes mellitus with other skin complications Code(s): E11.9 - Type 2 diabetes mellitus without complications (7) PVD (peripheral vascular disease): -Has known history of PVD with noted venous ulcerations on bilateral lower extremities, had been seen by Dr. Fan -Continue wound care as needed -Arterial studies showing severe PAD with abnormal ABIs noted -Was referred to Dr. Martinez for evaluation of peripheral vascular disease Status: Chronic Code(s): I73.9 - Peripheral vascular disease, unspecified (8) Hypertension: Status: Chronic Qualifiers: Hypertension type: essential hypertension Qualified Code(s): I10 - Essential (primary) hypertension Code(s): I10 - Essential (primary) hypertension (9) Hyperlipidemia: -continue statin Status: Chronic Qualifiers: Hyperlipidemia type: unspecified Qualified Code(s): E78.5 - Hyperlipidemia, unspecified Code(s): E78.5 - Hyperlipidemia, unspecified Additional A&P Information ARDS: Resolving: Multifactorial: Oxygen requirements high but continues to improve since yesterday. PF ratio improving. Patient has been treated for CHF exacerbation and COPD exacerbation. From the blood work requested procalcitonin mildly elevated as compared to before, proBNP better than before, flu negative, respiratory viral panel results awaited. Sputum sample awaited. Tamiflu has been started empirically as patient's neighbor on the second floor was being treated for influenza along with severe comorbidities and worsening respiratory status with the flu going around in the community it will be prudent to treat Mr. Rushing as well. Continue with broad-spectrum antibiotics of vancomycin and Zosyn both renally dosed along with Tamiflu. Day 6 of Tamiflu. Last dose tomorrow of antibiotics and antivirals. Confirm with micro lab regarding the status of respiratory viral panel. States the panel was lost so was recent yesterday. Will take up to 4 to 7 days. If patient continues to improve can stop Tamiflu after a 7-day course. For CHF: Patient looks euvolemic. Renal functions better today. Continue Lasix 60 mg. We will continue to hold off on metolazone. Strict intake and output charting. Monitor for fluid overload. Daily weights. BiPAP as needed. Continue oxygen supplementation keeping saturation over 88 %. Telemetry monitoring. For COPD: Continue with DuoNeb's, budesonide. Change prednisone to 40 mg daily from tomorrow morning. To do a quick taper within next 5 to 7 days. Continue with Tessalon Perles 200 mg p.o. 3 times daily. Continues to cough so we will add guanfacine to the treatment every 8 hourly standing. Will consult pulmonology today for further assistance. Type 2 diabetes mellitus: A1c 9.1. Sugars running high probably due to steroids. We will change insulin sliding scale to high-dose protocol. Continue with carb consistent diet. Hypertension: Blood pressures better now. We will add hydralazine back continue with amlodipine and Coreg. Continue to hold off on lisinopril for now. Continue to monitor blood pressures. Peripheral vascular disease: Continue with aspirin, statins. -Morbid obesity: BMI-37 kg/m2 -Chronic smoker -GERD -remote hx of brain tumor s/p FIELD SUPPORT ENGINEER shunt -Anxiety -possible aortic stenosis; may need further evaluation with CAITLYN -CKD stage 2; baseline Cr seems to be around 1.2 -Polycythemia; received 500 mL phlebotomy during last admission; stable H/H -GI ppx with PPI -DVT ppx with heparin -Dispo: Depending on patient's further clinical course will have to decide between SNF versus home with continued HH services -Code status: FULL code Move to floors Attestations Medical Necessity Statement*: Mild ARDS Time Spent in Patient Care: Greater than 35 minutes Coding Level of Care Code Acute Marketing Database Analyst for [facility] Fwd Diagnoses ARDS (adult respiratory distress syndrome) J80 Hypoxia R09.02 Pneumonia J18.9 Heart failure with preserved ejection fraction I50.30 COPD (chronic obstructive pulmonary disease) J44.1 COPD type: COPD with acute exacerbation Type 2 diabetes mellitus E11.628 Diabetes mellitus complication detail: with other skin complication Diabetes mellitus complication status: with skin complications Diabetes mellitus half-way insulin use: without terminal supervisor use PVD (peripheral vascular disease) I73.9 Hypertension I10 Hypertension type: essential hypertension Hyperlipidemia E78.5 Hyperlipidemia type: unspecified
[2019-06-27 16:10] LABS: Glucose Point of Care 178 mg/dL (70-110)
--- NOTE | 2019-06-27 16:34 | PC.NURSE ---
Report given to Raegan Thomas RN
--- NOTE | 2019-06-27 18:01 | PC.NURSE ---
Pt transferred to room 262 via wheelchair. All personal belongings sent with patient. SASCHA Carlin notified.
[2019-06-27] MEDS: atorvastatin 40 mg Tablet PO (20:08)
[2019-06-27] MEDS: acetaminophen 325 mg Tablet 650 MG PO (20:23)
[2019-06-27 21:24] LABS: Glucose Point of Care 183 mg/dL (70-110)
[2019-06-27] MEDS: insulin glargine 100 units/1 mL 30 UNIT SUBCUT (21:31)
[2019-06-28] VITALS (18 sets, daily range): BP systolic 137–175; BP diastolic 70–94; PULSE 60–88; RESP 16–20; TEMP 36.3–36.8; O2SAT 89–93
[2019-06-28] MEDS: ipratropium-albuterol 3 mL Neb INHALATION ×6 (00:19→21:03)
[2019-06-28 01:40] LABS: Alanine Aminotransferase 62 U/L (0-41); Albumin Level 2.5 g/dL (3.5-5.2); Alkaline Phosphatase 60 IU/L (40-130); Anion Gap 13.7 (5-19); Aspartate Amino Transferase 34 U/L (0-40); Blood Urea Nitrogen 21 mg/dL (8-23); Calcium 8.5 mg/dL (8.5-10.5); Carbon Dioxide 35 mmol/L (22-29); Chloride 88 mmol/L (98-107); Globulin 3.1 g/dL (1.3-4.6); Glomerular Filtration Rate 85.8 mL/min (90-130); Glucose 109 mg/dL (65-115); Potassium 3.7 mmol/L (3.5-5.1); Sodium 133 mmol/L (136-145); Total Bilirubin 0.4 mg/dL (0.15-1.2); Total Protein 5.6 g/dL (6.6-8.7); Vancomycin Trough 17.6 ug/mL (10-15)
[2019-06-28 02:02] LABS: Basophils % 0.2 %; Eosinophils % 0.1 %; Hematocrit 48.4 % (42.0-52.0); Hemoglobin 16.1 g/dL (11.7-16.6); Lymphocytes # 1.1 10^3/uL (0.8-4.8); Lymphocytes % 8.5 %; Mean Corpuscular HGB Conc 33.3 g/dL (30.0-36.0); Mean Corpuscular Hemoglobin 31.9 pg (28.0-34.0); Mean Corpuscular Volume 95.8 fL (80-94); Mean Platelet Volume 9.5 fL (7.4-10.4); Monocytes # 0.8 10^3/uL (0.2-0.9); Monocytes % 5.6 %; Neutrophils # 11.1 10^3/uL (1.8-7.7); Neutrophils % 83.1 %; Nucleated Red Blood Cells % 0 %; Platelet Count 324 10^3/cmm (130-400); Red Blood Count 5.05 10^6/uL (4.1-5.3); Red Cell Distribution Width 11.9 % (12.1-15.1); White Blood Count 13.4 10^3/uL (4.0-10.0)
[2019-06-28] MEDS: guaiFENesin-dextromethorphan UDC 10 mL 5 ML PO ×3 (03:18→21:31)
[2019-06-28] MEDS: heparin 5,000 unit/mL INJ 1 mL 5000 UNIT SUBCUT ×3 (03:19→21:31)
[2019-06-28] MEDS: piperacillin-tazobactam 3.375 GM in sodium chloride 0.9% (plus) 50 ML IV ×3 (03:19→19:50)
[2019-06-28] MEDS: morphine 4 mg/mL SDV 1 mL 2 MG IVP ×3 (06:38→21:39)
[2019-06-28 06:42] LABS: Glucose Point of Care 146 mg/dL (70-110)
[2019-06-28] MEDS: budesonide 0.5 mg/2 mL Neb INHALATION ×2 (08:02→21:03)
[2019-06-28] MEDS: FUROsemide 40 mg Tablet 60 MG PO (09:06)
[2019-06-28] MEDS: fluticasone nasal spray 16gm Btl 2 SPRAY NASAL ×2 (10:03→17:37)
[2019-06-28] MEDS: magnesium oxide 400 mg tablet PO ×2 (10:04→17:38)
[2019-06-28] MEDS: hyDRALAzine 25 mg Tablet PO ×3 (10:04→21:31)
[2019-06-28] MEDS: aspirin 81 mg EC Tablet PO (10:04)
[2019-06-28] MEDS: pantoprazole DR 40 mg Tablet PO (10:05)
[2019-06-28] MEDS: benzonatate 100 mg Capsule 200 MG PO ×3 (10:05→21:31)
[2019-06-28] MEDS: carvedilol 12.5 mg Tablet PO ×2 (10:06→17:37)
[2019-06-28] MEDS: predniSONE 20 mg Tablet 40 MG PO (10:09)
[2019-06-28] MEDS: amlodipine 10 mg Tablet PO (10:10)
[2019-06-28] MEDS: oseltamivir phosphate 75 mg Capsule PO ×2 (10:10→17:38)
[2019-06-28] MEDS: ammonium lactate lotion 226 gm Btl 1 APPLIC TOPICAL ×2 (10:12→17:37)
[2019-06-28 11:20] LABS: Glucose Point of Care 293 mg/dL (70-110)
[2019-06-28] MEDS: tizanidine 4 mg Tablet PO (16:36)
[2019-06-28 17:22] LABS: Glucose Point of Care 162 mg/dL (70-110)
[2019-06-28 21:01] LABS: Glucose Point of Care 198 mg/dL (70-110)
--- NOTE | 2019-06-28 21:24 | P.PN_ITS ---
Subjective Subjective: Interval history: He feels his breathing has been slowly improving. He has not been on oxygen prior to the current admission. He does get easily fatigued, generally still feels weak. Vitals/I&O/Wt Last Vital Signs Temp 98.2 F 06/28/19 19:37 Pulse 88 06/28/19 21:03 Resp 16 06/28/19 21:03 BP 137/81 06/28/19 19:37 Pulse Ox 92 06/28/19 21:03 06/28/19 06/28/19 06/28/19 06:59 14:59 22:59 Intake Total 50 / 2400 1010 / 1010 410 / 1420 Output Total 2850 / 5900 3125 / 3125 1400 / 4525 Balance -2800 / -3500 -2115 / -2115 -990 / -3105 Weight last 48 hrs Weight 109.225 kg Weight 116.573 kg Physical Exam Const: COMMON NORMALS: no apparent distress and oriented x3 OTHER: Sitting up at the bedside. In good spirits. HENMT: COMMON NORMALS: oropharynx normal Neck/C-Spine: COMMON NORMALS: no JVD Resp: COMMON NORMALS: normal respiratory effort AUSCULTATION: diminished lung sounds Cardio: COMMON NORMALS: no JVD, regular rhythm, S1 normal heart sound, S2 normal heart sound and no murmurs RHYTHM: regular rhythm HEART SOUNDS: S1 normal and S2 normal GI: COMMON NORMALS: normal to inspection, nondistended, normoactive bowel sounds, soft to palpation and non-tender PALPATION: Yes soft Extremity: COMMON NORMALS: no joint enlargement Neuro: COMMON NORMALS: oriented x3 and moves all extremities Skin: COMMON NORMALS: no rashes or lesions noted GENERAL SKIN EXAM: no rashes or lesions noted Data : 06/28/19 01:01 06/28/19 01:01 A&P Assessment and plan (1) ARDS (adult respiratory distress syndrome): With hypoxia which has been gradually improving. Today he is up to 7 L h igh flow cannula. Subjectively he feels gradual slow improvement. However, still getting easily fatigued. He had previously done well with physical therapy, however, with how easily he becomes fatigued will request assessment by OT, PT to see if he is indeed ready to function independently at home. With his functional decline discussed with him that concern is he may benefit from rehabilitation prior to return home. Continue diabetic coverage. Empirically treated with Tamiflu. Status: Acute Code(s): J80 - Acute respiratory distress syndrome (2) Hypoxia: ARDS. Pneumonia. CHF. COPD. Wean O2 gradually as tolerating. For now still with fairly significant fluctu ation, if stabilizes, with improvement, may discharge to home or rehab depending on therapy assessment. Status: Acute Code(s): R09.02 - Hypoxemia (3) Pneumonia: Continue antibiotics. Status: Acute Code(s): J18.9 - Pneumonia, unspecified organism (4) Heart failure with preserved ejection fraction: Continue Lasix. Status: Acute Code(s): I50.30 - Unspecified diastolic (congestive) heart failure (5) COPD (chronic obstructive pulmonary disease): Continue breathing treatments, antibiotics. Prednisone. Status: Acute Qualifiers: COPD type: COPD with acute exacerbation Qualified Code(s): J44.1 - Chronic obstructive pulmonary disease with (acute) exacerbation Code(s): J44.9 - Chronic obstructive pulmonary disease, unspecified (6) Type 2 diabetes mellitus: Status: Chronic Qualifiers: Diabetes mellitus penitentiary insulin use: without manager competitive intelligence use Diabetes mellitus complication status: with skin complications Diabetes mellitus complication detail: with other skin complication Qualified Code(s): E11.628 - Type 2 diabetes mellitus with other skin complications Code(s): E11.9 - Type 2 diabetes mellitus without complications (7) PVD (peripheral vascular disease): Status: Chronic Code(s): I73.9 - Peripheral vascular disease, unspecified (8) Hypertension: Status: Chronic Qualifiers: Hypertension type: essential hypertension Qualified Code(s): I10 - Essential (primary) hypertension Code(s): I10 - Essential (primary) hypertension (9) Hyperlipidemia: continue statin Status: Chronic Qualifiers: Hyperlipidemia type: unspecified Qualified Code(s): E78.5 - Hyperlipidemia, unspecified Code(s): E78.5 - Hyperlipidemia, unspecified Additional A&P Information -Morbid obesity: BMI-37 kg/m2 -Chronic smoker -GERD -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 Coding Level of Care Code Acute Trade Mark Attorney for [facility] Fwd Diagnoses ARDS (adult respiratory distress syndrome) J80 Hypoxia R09.02 Pneumonia J18.9 Heart failure with preserved ejection fraction I50.30 COPD (chronic obstructive pulmonary disease) J44.1 COPD type: COPD with acute exacerbation Type 2 diabetes mellitus E11.628 Diabetes mellitus manager competitive intelligence insulin use: without manager competitive intelligence use Diabetes mellitus complication status: with skin complications Diabetes mellitus complication detail: with other skin complication PVD (peripheral vascular disease) I73.9 Hypertension I10 Hypertension type: essential hypertension Hyperlipidemia E78.5 Hyperlipidemia type: unspecified
[2019-06-28] MEDS: atorvastatin 40 mg Tablet PO (21:31)
[2019-06-28] MEDS: insulin glargine 100 units/1 mL 30 UNIT SUBCUT (22:11)
[2019-06-29] VITALS (16 sets, daily range): BP systolic 138–161; BP diastolic 76–80; PULSE 65–85; RESP 17–22; TEMP 36.4–36.9; O2SAT 82–96
[2019-06-29] MEDS: heparin 5,000 unit/mL INJ 1 mL 5000 UNIT SUBCUT ×2 (03:48→13:22)
[2019-06-29] MEDS: piperacillin-tazobactam 3.375 GM in sodium chloride 0.9% (plus) 50 ML IV ×2 (03:48→13:21)
[2019-06-29] MEDS: tizanidine 4 mg Tablet PO (03:49)
[2019-06-29] MEDS: guaiFENesin-dextromethorphan UDC 10 mL 5 ML PO ×2 (03:49→13:23)
[2019-06-29] MEDS: morphine 4 mg/mL SDV 1 mL 2 MG IVP (03:49)
[2019-06-29] MEDS: ipratropium-albuterol 3 mL Neb INHALATION ×4 (04:47→15:06)
[2019-06-29 05:26] LABS: Basophils % 0.1 %; Eosinophils # 0.1 10^3/uL (0.0-0.8); Eosinophils % 0.6 %; Hematocrit 48.9 % (42.0-52.0); Hemoglobin 16.3 g/dL (11.7-16.6); Lymphocytes # 1.6 10^3/uL (0.8-4.8); Lymphocytes % 10.5 %; Mean Corpuscular HGB Conc 33.3 g/dL (30.0-36.0); Mean Corpuscular Hemoglobin 31.5 pg (28.0-34.0); Mean Corpuscular Volume 94.4 fL (80-94); Mean Platelet Volume 9.2 fL (7.4-10.4); Monocytes # 0.8 10^3/uL (0.2-0.9); Monocytes % 5.6 %; Nucleated Red Blood Cells % 0 %; Platelet Count 302 10^3/cmm (130-400); Red Blood Count 5.18 10^6/uL (4.1-5.3); White Blood Count 14.8 10^3/uL (4.0-10.0)
[2019-06-29 05:52] LABS: Alanine Aminotransferase 64 U/L (0-41); Albumin Level 2.7 g/dL (3.5-5.2); Alkaline Phosphatase 62 IU/L (40-130); Anion Gap 12.6 (5-19); Aspartate Amino Transferase 30 U/L (0-40); Blood Urea Nitrogen 21 mg/dL (8-23); Calcium 8.6 mg/dL (8.5-10.5); Carbon Dioxide 38 mmol/L (22-29); Chloride 87 mmol/L (98-107); Globulin 3.1 g/dL (1.3-4.6); Glucose 194 mg/dL (65-115); Potassium 3.6 mmol/L (3.5-5.1); Sodium 134 mmol/L (136-145); Total Bilirubin 0.5 mg/dL (0.15-1.2); Total Protein 5.8 g/dL (6.6-8.7)
[2019-06-29 06:47] LABS: Glucose Point of Care 135 mg/dL (70-110)
[2019-06-29] MEDS: budesonide 0.5 mg/2 mL Neb INHALATION (07:48)
[2019-06-29] MEDS: fluticasone nasal spray 16gm Btl 2 SPRAY NASAL (09:37)
[2019-06-29] MEDS: ammonium lactate lotion 226 gm Btl 1 APPLIC TOPICAL (09:39)
[2019-06-29] MEDS: oseltamivir phosphate 75 mg Capsule PO (09:39)
[2019-06-29] MEDS: magnesium oxide 400 mg tablet PO (09:39)
[2019-06-29] MEDS: predniSONE 20 mg Tablet 40 MG PO (09:40)
[2019-06-29] MEDS: benzonatate 100 mg Capsule 200 MG PO ×2 (09:40→16:18)
[2019-06-29] MEDS: FUROsemide 40 mg Tablet 60 MG PO (09:41)
[2019-06-29] MEDS: pantoprazole DR 40 mg Tablet PO (09:42)
[2019-06-29] MEDS: aspirin 81 mg EC Tablet PO (09:42)
[2019-06-29] MEDS: carvedilol 12.5 mg Tablet PO (09:42)
[2019-06-29] MEDS: amlodipine 10 mg Tablet PO (09:42)
[2019-06-29] MEDS: hyDRALAzine 25 mg Tablet PO ×2 (09:42→16:19)
[2019-06-29 11:00] LABS: Glucose Point of Care 134 mg/dL (70-110)
--- NOTE | 2019-06-29 11:16 | DCPLANNER ---
Pg 2 of IM updated and reviewed with pt. No questions, copy provided.
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
[2019-06-29 19:23] LABS: ABG PCO2 61.7 mmHg (35-45)
== END 2019-06-29 16:30 | disposition home health service (06) | DRG 291 ==
LOC: ER 13:24 → ICU 13:35 → MEDSURG 06-18 14:52 → ICU 06-23 10:31 → MEDSURG 06-27 17:30
PROVIDERS: Internal Medicine; Student in an Organized Health Care Education/Training Program; Admitting Provider Family Medicine; Emergency Provider Emergency Medicine; Visit Provider Internal Medicine
DX: I13.0 Hypertensive heart and chronic kidney disease with heart failure and stage 1 through stage 4 chronic kidney disease, or unspecified chronic kidney disease (principal); I50.33 Acute on chronic diastolic (congestive) heart failure; J18.9 Pneumonia, unspecified organism; J96.21 Acute and chronic respiratory failure with hypoxia; J44.1 Chronic obstructive pulmonary disease with (acute) exacerbation; L97.829 Non-pressure chronic ulcer of other part of left lower leg with unspecified severity; L03.116 Cellulitis of left lower limb; L03.115 Cellulitis of right lower limb; E11.628 Type 2 diabetes mellitus with other skin complications; L97.519 Non-pressure chronic ulcer of other part of right foot with unspecified severity; I73.9 Peripheral vascular disease, unspecified; E78.5 Hyperlipidemia, unspecified; E66.01 Morbid (severe) obesity due to excess calories; K21.9 Gastro-esophageal reflux disease without esophagitis; F41.9 Anxiety disorder, unspecified; N18.2 Chronic kidney disease, stage 2 (mild); E11.22 Type 2 diabetes mellitus with diabetic chronic kidney disease; E11.51 Type 2 diabetes mellitus with diabetic peripheral angiopathy without gangrene; J44.9 Chronic obstructive pulmonary disease, unspecified; Z68.35 Body mass index [BMI] 35.0-35.9, adult; Z87.891 Personal history of nicotine dependence; Z99.81 Dependence on supplemental oxygen; Z79.84 Long term (current) use of oral hypoglycemic drugs; Z79.811 Long term (current) use of aromatase inhibitors; Z79.82 Long term (current) use of aspirin; Z79.899 Other long term (current) drug therapy; Z79.83 Long term (current) use of bisphosphonates
CPT/HCPCS: 12345; 36415; 36416; 36600; 71045; 71250; 80048; 80051; 80053; 80202; 82803; 82805; 82810; 82962; 83880; 83986; 84145; 85025; 85610; 87070; 87205; 87804; 93005; 94640; 94660; 94762; 96372; 96374; 96375; 97110; 97112; 97116; 97161; 97162; 97165; 97530; 97535; 99214; 99282; J1644; J1815; J2270; J2543; J2920; J2930; J3370; J3490; J7030; J7040; J7512; J7611; J7626

== ENCOUNTER 2019-07-11 11:08 | Outpatient (RCR) | payer MEDICARE, SELFPAY | END 2019-07-23 23:59 | disposition home or self-care (01) | LOC: WOUND 11:08 | PROVIDERS: Visit Provider Nurse Practitioner Family | DX: I87.2 Venous insufficiency (chronic) (peripheral) (principal); L97.812 Non-pressure chronic ulcer of other part of right lower leg with fat layer exposed | CPT/HCPCS: 11042; 99213; G0463 ==

== ENCOUNTER 2019-07-25 08:38 | Outpatient (RCR) | payer MEDICARE, SELFPAY | END 2019-08-22 23:59 | disposition home or self-care (01) | LOC: WOUND 08:38 | PROVIDERS: Visit Provider Nurse Practitioner Family | DX: Z09 Encounter for follow-up examination after completed treatment for conditions other than malignant neoplasm (principal) | CPT/HCPCS: 99212 ==